=== PATIENT | female | born 1990 | race Caucasian/White ===

== ENCOUNTER 2017-12-08 10:34 | Inpatient (IN) | payer MEDICAID, OTHER ==
[~2017-12-08] VITALS: Ht 154.9 cm; Wt 62.3 kg
[2017-12-08 11:19] LABS: BASOPHILS % (AUTO) 0.9 % (0.0-2.0); HEMATOCRIT 44.5 % (36-46); HEMOGLOBIN 14.8 g/dL (12.0-16.0); LYMPHOCYTES # (AUTO) 1.9 K/uL (1.0-4.8); LYMPHOCYTES % (AUTO) 17.9 % (22.0-44.0); MEAN CORPUSCULAR HEMOGLOBIN 28.1 pg (26.0-34.0); MEAN CORPUSCULAR HGB CONC 33.3 G/dL (31.0-37.0); MEAN CORPUSCULAR VOLUME 84 fL (80-100); MONOCYTES # (AUTO) 1.2 K/uL (0.1-1.0); MONOCYTES % (AUTO) 11.2 % (2.0-9.0); NEUTROPHILS # (AUTO) 7.3 K/uL (1.8-7.7); PLATELET COUNT (AUTO) 212 K/uL (150-450); RED BLOOD CELL COUNT(AUTO) 5.27 MIL/uL (4.00-5.20); RED CELL DISTRIBUTION WIDTH 16.4 % (11.5-14.5)
[2017-12-08 11:26] LABS: AMPHET/METH SCREEN,URINE NEGATIVE (NEGATIVE); BARBITURATE SCREEN, URINE NEGATIVE (NEGATIVE); BENZODIAZEPINES SCREEN,URINE NEGATIVE (NEGATIVE); CANNABINOID SCREEN,URINE POSITIVE (NEGATIVE); COCAINE SCREEN,URINE NEGATIVE (NEGATIVE); METHADONE SCREEN, URINE NEGATIVE (NEGATIVE); OPIATE SCREEN,URINE NEGATIVE (NEGATIVE)
[2017-12-08 11:26] LABS: ANION GAP 12 mmol/L (8-16); CALCIUM, TOTAL 9.4 mg/dL (8.8-10.5); CARBON DIOXIDE 27 mmol/L (22-29); CHLORIDE 102 mmol/L (98-107); CREATININE 0.81 mg/dL (0.60-1.30); GLOMERULAR FILTR. RATE CALC > 60 mL/min (>60); GLUCOSE,RANDOM 92 mg/dL (70-110); POTASSIUM 4.3 mmol/L (3.5-5.1); SODIUM SERUM 141 mmol/L (136-145); UREA NITROGEN, BLOOD 12 mg/dL (7-18)
[2017-12-08 11:28] LABS: PHENCYCLIDINE SCREEN,URINE NEGATIVE (NEGATIVE)
[2017-12-08 11:32] LABS: ALANINE AMINOTRANSFERASE 21 U/L (12-78); ALBUMIN 4.7 g/dL (3.4-5.0); ALKALINE PHOSPHATASE 73 U/L (46-116); ASPARTATE AMINOTRANSFERASE 21 U/L (15-37); BILIRUBIN,TOTAL 0.7 mg/dL (0.1-1.0); TOTAL PROTEIN, SERUM 8.5 g/dL (6.4-8.2)
[2017-12-08] MEDS ORDERED: DiphenhydrAMINE HCL 50 MG/ML VIAL IM ONE (13:15)
[2017-12-08] MEDS ORDERED: HALOPERIDOL LACTATE 5 MG/ML VIAL IM ONE (13:15)
[2017-12-08] MEDS ORDERED: LORazepam 2 MG/ML VIAL IM ONE (13:15)
[2017-12-08] MEDS ORDERED: ZOLPIDEM TARTRATE 10 MG TABLET PO PRN (13:45)
[2017-12-08] MEDS ORDERED: HALOPERIDOL 5 MG TABLET PO PRN (13:45)
[2017-12-08 16:29] VITALS: BP 102/78
[2017-12-08] MEDS: ZIPRASIDONE HCL 40 MG CAPSULE PO SCH (16:55)
[2017-12-08] MEDS ORDERED: INFLUENZA VIRUS VACCINE QVS 2017-18 (3YR+)/PF 60 MCG/0.5 ML SYRINGE IM ONE (17:30)
[2017-12-09] MEDS: ZIPRASIDONE HCL 40 MG CAPSULE PO SCH ×2 (06:33→16:28)
[2017-12-09 06:46] VITALS: BP 102/60
[2017-12-09 08:11] LABS: BASOPHILS % (AUTO) 0.8 % (0.0-2.0); EOSINOPHILS % (AUTO) 4.7 % (1.0-6.0); HEMATOCRIT 40.2 % (36-46); HEMOGLOBIN 13.3 g/dL (12.0-16.0); LYMPHOCYTES # (AUTO) 2.6 K/uL (1.0-4.8); LYMPHOCYTES % (AUTO) 27.9 % (22.0-44.0); MEAN CORPUSCULAR VOLUME 85 fL (80-100); MONOCYTES # (AUTO) 1.1 K/uL (0.1-1.0); NEUTROPHILS # (AUTO) 5.1 K/uL (1.8-7.7); NEUTROPHILS % (AUTO) 54.6 % (40.0-70.0); PLATELET COUNT (AUTO) 173 K/uL (150-450); RED BLOOD CELL COUNT(AUTO) 4.73 MIL/uL (4.00-5.20); RED CELL DISTRIBUTION WIDTH 16.1 % (11.5-14.5)
[2017-12-09 08:35] VITALS: BP 109/62
[2017-12-09 08:35] LABS: HEMOGLOBIN A1C 5.4 % (4.5-6.2)
[2017-12-09 09:02] LABS: ALANINE AMINOTRANSFERASE 12 U/L (12-78); ALBUMIN 3.8 g/dL (3.4-5.0); ALKALINE PHOSPHATASE 59 U/L (46-116); ANION GAP 11 mmol/L (8-16); ASPARTATE AMINOTRANSFERASE 18 U/L (15-37); BILIRUBIN,TOTAL 0.6 mg/dL (0.1-1.0); CALCIUM, TOTAL 8.7 mg/dL (8.8-10.5); CARBON DIOXIDE 24 mmol/L (22-29); CHLORIDE 104 mmol/L (98-107); CHOLESTEROL 246 mg/dL (131-200); CREATININE 0.66 mg/dL (0.60-1.30); FREE T4 (FREE THYROXINE) 1.11 ng/dL (0.76-1.46); GLOMERULAR FILTR. RATE CALC > 60 mL/min (>60); GLUCOSE,RANDOM 75 mg/dL (70-110); HDL CHOLESTEROL 82 mg/dL (40-60); LDL CHOL (CALC.) 151 mg/dL (0-130); POTASSIUM 4.1 mmol/L (3.5-5.1); SODIUM SERUM 139 mmol/L (136-145); TRIGLYCERIDES 67 mg/dL (15-150); UREA NITROGEN, BLOOD 13 mg/dL (7-18)
[2017-12-09] MEDS: LORazepam 2 MG TABLET PO PRN (12:27)
[2017-12-09 16:00] VITALS: BP 107/68
[2017-12-09] MEDS: ACETAMINOPHEN 325 MG TABLET PO PRN (19:15)
[2017-12-10] VITALS: BP 100/62
[2017-12-10 05:45] VITALS: BP 101/65
[2017-12-10] MEDS: ACETAMINOPHEN 325 MG TABLET PO PRN (06:12)
[2017-12-10] MEDS: ZIPRASIDONE HCL 40 MG CAPSULE PO SCH ×2 (06:59→16:35)
[2017-12-10 08:09] VITALS: BP 108/61
[2017-12-10] MEDS: LORazepam 2 MG TABLET PO PRN ×3 (09:04→20:35)
[2017-12-10] MEDS: ATORVASTATIN CALCIUM 40 MG TABLET PO SCH (09:55)
[2017-12-10] MEDS: ONDANSETRON HCL 4 MG TABLET PO PRN (09:55)
[2017-12-10 16:00] VITALS: BP 114/69
[2017-12-11 05:45] VITALS: BP 100/61
[2017-12-11] MEDS: ZIPRASIDONE HCL 40 MG CAPSULE PO SCH (07:12)
[2017-12-11] MEDS: ATORVASTATIN CALCIUM 40 MG TABLET PO SCH (08:21)
[2017-12-11 08:35] VITALS: BP 110/87
[2017-12-11] MEDS: LORazepam 2 MG TABLET PO PRN ×2 (10:45→16:30)
[2017-12-11 16:06] VITALS: BP 109/67
[2017-12-11] MEDS: ZIPRASIDONE HCL 60 MG CAPSULE PO SCH (16:30)
[2017-12-11] MEDS: ONDANSETRON HCL 4 MG TABLET PO PRN (18:44)
[2017-12-12 06:16] VITALS: BP 110/68
[2017-12-12] MEDS: ZIPRASIDONE HCL 60 MG CAPSULE PO SCH (07:00)
[2017-12-12] MEDS: ATORVASTATIN CALCIUM 40 MG TABLET PO SCH (08:00)
[2017-12-12 08:29] VITALS: BP 121/77
[2017-12-12] MEDS ORDERED: ATOR40TA28 PO (09:46)
[2017-12-12] MEDS ORDERED: ZIPR60CA2 PO (09:46)
== END 2017-12-12 13:20 | disposition home or self-care (01) | DRG 751 ==
LOC: EMS 10:39 → B2S 15:14 → EMS 15:15
PROVIDERS: ADMIT Psychiatry & Neurology Psychiatry; ATTEND Psychiatry & Neurology Psychiatry
DX: F29 Unspecified psychosis not due to a substance or known physiological condition (principal); F32.9 Major depressive disorder, single episode, unspecified; E78.5 Hyperlipidemia, unspecified; F12.90 Cannabis use, unspecified, uncomplicated; F41.9 Anxiety disorder, unspecified; Z79.899 Other long term (current) drug therapy
CPT/HCPCS: 83036; 84439; 84443; 90471; 96372; 99285; G0480; J1200; J1630; J2060; Q0162

== ENCOUNTER 2017-12-12 19:04 | Inpatient (IN) | payer MEDICAID, OTHER ==
[~2017-12-12] VITALS: Ht 154.9 cm; Wt 64.2 kg
[~2017-12-12 19:04] MED LIST: ATOR40TA28 PO; ZIPR60CA2 PO
[2017-12-12 20:29] LABS: BASOPHILS % (AUTO) 0.7 % (0.0-2.0); HEMATOCRIT 38.7 % (36-46); HEMOGLOBIN 12.9 g/dL (12.0-16.0); LYMPHOCYTES # (AUTO) 2.2 K/uL (1.0-4.8); MEAN CORPUSCULAR HEMOGLOBIN 28.3 pg (26.0-34.0); MEAN CORPUSCULAR HGB CONC 33.4 G/dL (31.0-37.0); MEAN CORPUSCULAR VOLUME 85 fL (80-100); MONOCYTES # (AUTO) 1.4 K/uL (0.1-1.0); MONOCYTES % (AUTO) 8.8 % (2.0-9.0); NEUTROPHILS # (AUTO) 11.8 K/uL (1.8-7.7); NEUTROPHILS % (AUTO) 74.5 % (40.0-70.0); PLATELET COUNT (AUTO) 193 K/uL (150-450); RED BLOOD CELL COUNT(AUTO) 4.57 MIL/uL (4.00-5.20); RED CELL DISTRIBUTION WIDTH 16.1 % (11.5-14.5)
[2017-12-12 20:51] LABS: ALANINE AMINOTRANSFERASE 21 U/L (12-78); ALBUMIN 4.1 g/dL (3.4-5.0); ALKALINE PHOSPHATASE 68 U/L (46-116); ANION GAP 8 mmol/L (8-16); ASPARTATE AMINOTRANSFERASE 18 U/L (15-37); CARBON DIOXIDE 28 mmol/L (22-29); CHLORIDE 103 mmol/L (98-107); CREATININE 0.81 mg/dL (0.60-1.30); GLOMERULAR FILTR. RATE CALC > 60 mL/min (>60); GLUCOSE,RANDOM 96 mg/dL (70-110); POTASSIUM 4.4 mmol/L (3.5-5.1); SODIUM SERUM 139 mmol/L (136-145); UREA NITROGEN, BLOOD 20 mg/dL (7-18)
[2017-12-12 21:39] LABS: BILIRUBIN,TOTAL 0.4 mg/dL (0.1-1.0); CALCIUM, TOTAL 8.9 mg/dL (8.8-10.5); TOTAL PROTEIN, SERUM 7.4 g/dL (6.4-8.2)
[2017-12-12 22:02] LABS: AMPHET/METH SCREEN,URINE NEGATIVE (NEGATIVE); BARBITURATE SCREEN, URINE NEGATIVE (NEGATIVE); BENZODIAZEPINES SCREEN,URINE NEGATIVE (NEGATIVE); CANNABINOID SCREEN,URINE POSITIVE (NEGATIVE); COCAINE SCREEN,URINE NEGATIVE (NEGATIVE); METHADONE SCREEN, URINE NEGATIVE (NEGATIVE); OPIATE SCREEN,URINE NEGATIVE (NEGATIVE)
[2017-12-12 22:03] LABS: PHENCYCLIDINE SCREEN,URINE NEGATIVE (NEGATIVE)
[2017-12-12] MEDS ORDERED: LORazepam 2 MG/ML VIAL IM ONE (22:30)
[2017-12-12] MEDS ORDERED: HALOPERIDOL LACTATE 5 MG/ML VIAL IM ONE (22:30)
[2017-12-12] MEDS ORDERED: MAGNESIUM HYDROXIDE SUSPENSION 30 ML UDCUP PO PRN (23:00)
[2017-12-12] MEDS ORDERED: ZOLPIDEM TARTRATE 10 MG TABLET PO PRN (23:00)
[2017-12-12] MEDS ORDERED: ACETAMINOPHEN 325 MG TABLET PO PRN (23:00)
[2017-12-12 23:34] VITALS: BP 104/71
[2017-12-13 02:50] VITALS: BP 100/62
[2017-12-13] MEDS ORDERED: INFLUENZA VIRUS VACCINE QVS 2017-18 (3YR+)/PF 60 MCG/0.5 ML SYRINGE IM ONE (04:15)
[2017-12-13 08:09] VITALS: BP 100/67
[2017-12-13] MEDS: HALOPERIDOL 5 MG TABLET PO PRN (13:22)
[2017-12-13] MEDS: LORazepam 2 MG TABLET PO PRN ×2 (13:22→18:15)
[2017-12-13 16:20] VITALS: BP 110/65
[2017-12-13] MEDS: ZIPRASIDONE HCL 80 MG CAPSULE PO SCH (17:16)
[2017-12-14 04:00] VITALS: BP 102/61
[2017-12-14] MEDS: MAG HYDROX/AL HYDROX/SIMETH ES 30 ML SUSPENSION UDCUP PO PRN ×2 (05:45→19:53)
[2017-12-14] MEDS: ZIPRASIDONE HCL 80 MG CAPSULE PO SCH ×2 (06:40→17:46)
[2017-12-14 08:05] LABS: BASOPHILS % (AUTO) 0.7 % (0.0-2.0); EOSINOPHILS % (AUTO) 4.2 % (1.0-6.0); HEMATOCRIT 38.4 % (36-46); HEMOGLOBIN 12.8 g/dL (12.0-16.0); LYMPHOCYTES # (AUTO) 2.4 K/uL (1.0-4.8); LYMPHOCYTES % (AUTO) 27.3 % (22.0-44.0); MEAN CORPUSCULAR HEMOGLOBIN 28.3 pg (26.0-34.0); MEAN CORPUSCULAR HGB CONC 33.3 G/dL (31.0-37.0); MEAN CORPUSCULAR VOLUME 85 fL (80-100); MONOCYTES # (AUTO) 0.8 K/uL (0.1-1.0); MONOCYTES % (AUTO) 9.4 % (2.0-9.0); NEUTROPHILS # (AUTO) 5.2 K/uL (1.8-7.7); NEUTROPHILS % (AUTO) 58.4 % (40.0-70.0); PLATELET COUNT (AUTO) 175 K/uL (150-450); RED BLOOD CELL COUNT(AUTO) 4.53 MIL/uL (4.00-5.20); RED CELL DISTRIBUTION WIDTH 16.6 % (11.5-14.5)
[2017-12-14] MEDS: ATORVASTATIN CALCIUM 40 MG TABLET PO SCH (08:09)
[2017-12-14 08:18] VITALS: BP 97/60
[2017-12-14] MEDS: HALOPERIDOL 5 MG TABLET PO PRN ×2 (10:57→18:29)
[2017-12-14] MEDS: LORazepam 2 MG TABLET PO PRN ×2 (10:57→17:46)
[2017-12-14 16:00] VITALS: BP 114/64
[2017-12-15 05:39] VITALS: BP 102/65
[2017-12-15] MEDS: ZIPRASIDONE HCL 80 MG CAPSULE PO SCH ×2 (06:24→16:34)
[2017-12-15] MEDS: ATORVASTATIN CALCIUM 40 MG TABLET PO SCH (08:24)
[2017-12-15] MEDS: LORazepam 2 MG TABLET PO PRN ×2 (08:24→20:35)
[2017-12-15 08:29] LABS: BASOPHILS % (AUTO) 0.8 % (0.0-2.0); HEMATOCRIT 39.3 % (36-46); LYMPHOCYTES # (AUTO) 2.6 K/uL (1.0-4.8); LYMPHOCYTES % (AUTO) 26.3 % (22.0-44.0); MEAN CORPUSCULAR HEMOGLOBIN 28.1 pg (26.0-34.0); MEAN CORPUSCULAR HGB CONC 33.1 G/dL (31.0-37.0); MEAN CORPUSCULAR VOLUME 85 fL (80-100); MONOCYTES # (AUTO) 0.8 K/uL (0.1-1.0); MONOCYTES % (AUTO) 8.6 % (2.0-9.0); NEUTROPHILS # (AUTO) 5.9 K/uL (1.8-7.7); NEUTROPHILS % (AUTO) 60.3 % (40.0-70.0); PLATELET COUNT (AUTO) 205 K/uL (150-450); RED BLOOD CELL COUNT(AUTO) 4.62 MIL/uL (4.00-5.20); RED CELL DISTRIBUTION WIDTH 16.3 % (11.5-14.5)
[2017-12-15] MEDS: HALOPERIDOL 5 MG TABLET PO PRN (09:13)
[2017-12-15] MEDS ORDERED: ONDANSETRON HCL 4 MG TABLET PO PRN (10:15)
[2017-12-15] MEDS: DIVALPROEX SODIUM 500 MG ER TABLET PO SCH (16:34)
[2017-12-15] MEDS: MAG HYDROX/AL HYDROX/SIMETH ES 30 ML SUSPENSION UDCUP PO PRN (16:36)
[2017-12-15 16:43] VITALS: BP 101/71
[2017-12-16 06:15] VITALS: BP 110/67
[2017-12-16] MEDS: ZIPRASIDONE HCL 80 MG CAPSULE PO SCH ×2 (06:56→17:20)
[2017-12-16 08:29] VITALS: BP 104/52
[2017-12-16] MEDS: ATORVASTATIN CALCIUM 40 MG TABLET PO SCH (08:53)
[2017-12-16] MEDS: DIVALPROEX SODIUM 500 MG ER TABLET PO SCH ×2 (08:53→17:20)
[2017-12-16] MEDS: LORazepam 2 MG TABLET PO PRN ×2 (12:52→18:49)
[2017-12-16] MEDS: HALOPERIDOL 5 MG TABLET PO PRN ×2 (12:52→18:49)
[2017-12-16 16:23] VITALS: BP 105/61
[2017-12-17] MEDS: ZIPRASIDONE HCL 80 MG CAPSULE PO SCH ×2 (06:51→17:05)
[2017-12-17 07:34] VITALS: BP 112/68
[2017-12-17] MEDS: DIVALPROEX SODIUM 500 MG ER TABLET PO SCH ×2 (08:47→17:05)
[2017-12-17] MEDS: ATORVASTATIN CALCIUM 40 MG TABLET PO SCH (08:47)
[2017-12-17 09:42] VITALS: BP 100/60
[2017-12-17] MEDS: LORazepam 2 MG TABLET PO PRN (12:35)
[2017-12-17] MEDS: HALOPERIDOL 5 MG TABLET PO PRN (12:35)
[2017-12-17 16:13] VITALS: BP 106/67
[2017-12-18 02:24] VITALS: BP 118/77
[2017-12-18] MEDS: ZIPRASIDONE HCL 80 MG CAPSULE PO SCH (06:34)
[2017-12-18 08:11] LABS: BASOPHILS % (AUTO) 0.8 % (0.0-2.0); HEMATOCRIT 38.5 % (36-46); HEMOGLOBIN 13.2 g/dL (12.0-16.0); LYMPHOCYTES # (AUTO) 2.8 K/uL (1.0-4.8); MEAN CORPUSCULAR HEMOGLOBIN 29.1 pg (26.0-34.0); MEAN CORPUSCULAR HGB CONC 34.4 G/dL (31.0-37.0); MEAN CORPUSCULAR VOLUME 85 fL (80-100); MONOCYTES # (AUTO) 0.8 K/uL (0.1-1.0); MONOCYTES % (AUTO) 8.4 % (2.0-9.0); NEUTROPHILS # (AUTO) 5.7 K/uL (1.8-7.7); NEUTROPHILS % (AUTO) 57.8 % (40.0-70.0); PLATELET COUNT (AUTO) 164 K/uL (150-450); RED BLOOD CELL COUNT(AUTO) 4.55 MIL/uL (4.00-5.20); RED CELL DISTRIBUTION WIDTH 16.4 % (11.5-14.5)
[2017-12-18 08:21] LABS: ALANINE AMINOTRANSFERASE 18 U/L (12-78); ALBUMIN 3.3 g/dL (3.4-5.0); ALKALINE PHOSPHATASE 59 U/L (46-116); ANION GAP 9 mmol/L (8-16); ASPARTATE AMINOTRANSFERASE 16 U/L (15-37); BILIRUBIN,TOTAL 0.2 mg/dL (0.1-1.0); CALCIUM, TOTAL 8.5 mg/dL (8.8-10.5); CARBON DIOXIDE 27 mmol/L (22-29); CHLORIDE 105 mmol/L (98-107); CREATININE 0.57 mg/dL (0.60-1.30); GLOMERULAR FILTR. RATE CALC > 60 mL/min (>60); GLUCOSE,RANDOM 74 mg/dL (70-110); POTASSIUM 4.1 mmol/L (3.5-5.1); SODIUM SERUM 141 mmol/L (136-145); TOTAL PROTEIN, SERUM 6.5 g/dL (6.4-8.2); UREA NITROGEN, BLOOD 6 mg/dL (7-18); VALPROIC ACID 74 mcg/mL (50-100)
[2017-12-18] MEDS: LORazepam 2 MG TABLET PO PRN (09:35)
[2017-12-18] MEDS: ATORVASTATIN CALCIUM 40 MG TABLET PO SCH (09:35)
[2017-12-18] MEDS: DIVALPROEX SODIUM 500 MG ER TABLET PO SCH (09:35)
[2017-12-18] MEDS: HALOPERIDOL 5 MG TABLET PO PRN (09:35)
[2017-12-18 11:00] VITALS: BP 111/79
[2017-12-18] MEDS ORDERED: DIVA500T52 PO (15:22)
== END 2017-12-18 17:20 | disposition home or self-care (01) | DRG 753 ==
LOC: EMS 19:07 → AHU 22:57 → B3A 12-13 02:10
PROVIDERS: ADMIT Psychiatry & Neurology Psychiatry; ATTEND Psychiatry & Neurology Psychiatry
DX: F31.2 Bipolar disorder, current episode manic severe with psychotic features (principal); E78.5 Hyperlipidemia, unspecified; F12.90 Cannabis use, unspecified, uncomplicated; F15.90 Other stimulant use, unspecified, uncomplicated; F41.9 Anxiety disorder, unspecified; Z79.899 Other long term (current) drug therapy
CPT/HCPCS: G0480; J1630; J2060; Q0162

== ENCOUNTER 2017-12-18 22:39 | Emergency (ER) | payer MEDICAID, OTHER ==
[~2017-12-18] VITALS: Ht 154.9 cm; Wt 68.2 kg
[~2017-12-18 22:39] MED LIST changes: +DIVA500T52 PO
[2017-12-18 23:02] LABS: BASOPHILS % (AUTO) 0.7 % (0.0-2.0); EOSINOPHILS % (AUTO) 1.9 % (1.0-6.0); HEMATOCRIT 36.9 % (36-46); HEMOGLOBIN 12.3 g/dL (12.0-16.0); LYMPHOCYTES # (AUTO) 2.4 K/uL (1.0-4.8); MEAN CORPUSCULAR HEMOGLOBIN 28.2 pg (26.0-34.0); MEAN CORPUSCULAR HGB CONC 33.3 G/dL (31.0-37.0); MEAN CORPUSCULAR VOLUME 85 fL (80-100); MONOCYTES # (AUTO) 1.1 K/uL (0.1-1.0); MONOCYTES % (AUTO) 9.4 % (2.0-9.0); PLATELET COUNT (AUTO) 206 K/uL (150-450); RED BLOOD CELL COUNT(AUTO) 4.36 MIL/uL (4.00-5.20); RED CELL DISTRIBUTION WIDTH 16.3 % (11.5-14.5)
[2017-12-18 23:11] LABS: AMPHET/METH SCREEN,URINE NEGATIVE (NEGATIVE); BARBITURATE SCREEN, URINE NEGATIVE (NEGATIVE); BENZODIAZEPINES SCREEN,URINE NEGATIVE (NEGATIVE); CANNABINOID SCREEN,URINE POSITIVE (NEGATIVE); COCAINE SCREEN,URINE NEGATIVE (NEGATIVE); METHADONE SCREEN, URINE NEGATIVE (NEGATIVE); OPIATE SCREEN,URINE NEGATIVE (NEGATIVE)
[2017-12-18 23:14] LABS: PHENCYCLIDINE SCREEN,URINE NEGATIVE (NEGATIVE)
[2017-12-18 23:17] LABS: ANION GAP 11 mmol/L (8-16); CALCIUM, TOTAL 8.9 mg/dL (8.8-10.5); CARBON DIOXIDE 28 mmol/L (22-29); CHLORIDE 104 mmol/L (98-107); CREATININE 0.55 mg/dL (0.60-1.30); GLOMERULAR FILTR. RATE CALC > 60 mL/min (>60); GLUCOSE,RANDOM 92 mg/dL (70-110); POTASSIUM 3.8 mmol/L (3.5-5.1); SODIUM SERUM 143 mmol/L (136-145); UREA NITROGEN, BLOOD 10 mg/dL (7-18)
[2017-12-18 23:23] LABS: ALANINE AMINOTRANSFERASE 18 U/L (12-78); ALBUMIN 3.6 g/dL (3.4-5.0); ALKALINE PHOSPHATASE 78 U/L (46-116); ASPARTATE AMINOTRANSFERASE 14 U/L (15-37); BILIRUBIN,TOTAL 0.1 mg/dL (0.1-1.0); TOTAL PROTEIN, SERUM 6.9 g/dL (6.4-8.2); VALPROIC ACID 65 mcg/mL (50-100)
[2017-12-19 03:46] VITALS: BP 103/61
== END 2017-12-19 04:33 | disposition home or self-care (01) ==
LOC: EMS 22:40
DX: F25.9 Schizoaffective disorder, unspecified (principal); F41.9 Anxiety disorder, unspecified; F12.10 Cannabis abuse, uncomplicated; F15.10 Other stimulant abuse, uncomplicated; Z79.899 Other long term (current) drug therapy
CPT/HCPCS: 36415; 80053; 80164; 80307; 84703; 85025; 99284; G0480

== ENCOUNTER 2017-12-20 11:43 | Emergency (ER) | payer OTHER ==
[~2017-12-20] VITALS: Ht 154.9 cm; Wt 63.6 kg
[2017-12-20] MEDS ORDERED: SODIUM CHLORIDE 0.9% 1,000 ML IV ONE (12:15)
[2017-12-20 12:32] LABS: BASOPHILS % (AUTO) 0.7 % (0.0-2.0); EOSINOPHILS % (AUTO) 3.6 % (1.0-6.0); HEMATOCRIT 38.1 % (36-46); HEMOGLOBIN 12.8 g/dL (12.0-16.0); LYMPHOCYTES # (AUTO) 2.1 K/uL (1.0-4.8); LYMPHOCYTES % (AUTO) 21.7 % (22.0-44.0); MEAN CORPUSCULAR HEMOGLOBIN 28.6 pg (26.0-34.0); MEAN CORPUSCULAR HGB CONC 33.7 G/dL (31.0-37.0); MEAN CORPUSCULAR VOLUME 85 fL (80-100); MONOCYTES % (AUTO) 10.8 % (2.0-9.0); NEUTROPHILS # (AUTO) 6.1 K/uL (1.8-7.7); NEUTROPHILS % (AUTO) 63.2 % (40.0-70.0); PLATELET COUNT (AUTO) 219 K/uL (150-450); RED BLOOD CELL COUNT(AUTO) 4.49 MIL/uL (4.00-5.20); RED CELL DISTRIBUTION WIDTH 16.9 % (11.5-14.5)
[2017-12-20 12:50] LABS: ANION GAP 5 mmol/L (8-16); CALCIUM, TOTAL 8.6 mg/dL (8.8-10.5); CARBON DIOXIDE 30 mmol/L (22-29); CHLORIDE 106 mmol/L (98-107); CREATININE 0.52 mg/dL (0.60-1.30); GLOMERULAR FILTR. RATE CALC > 60 mL/min (>60); GLUCOSE,RANDOM 95 mg/dL (70-110); POTASSIUM 4.1 mmol/L (3.5-5.1); SODIUM SERUM 141 mmol/L (136-145); UREA NITROGEN, BLOOD 9 mg/dL (7-18)
[2017-12-20 12:57] LABS: ALANINE AMINOTRANSFERASE 21 U/L (12-78); ALBUMIN 3.8 g/dL (3.4-5.0); ALKALINE PHOSPHATASE 72 U/L (46-116); ASPARTATE AMINOTRANSFERASE 13 U/L (15-37); BILIRUBIN,TOTAL 0.1 mg/dL (0.1-1.0); TOTAL PROTEIN, SERUM 6.9 g/dL (6.4-8.2); VALPROIC ACID 101 mcg/mL (50-100)
[2017-12-20 12:58] LABS: ACETAMINOPHEN < 2 mcg/mL (10-30)
[2017-12-20 13:44] LABS: SALICYLATE < 2.8 mg/dL (2.8-20.0)
[2017-12-20 14:29] LABS: AMPHET/METH SCREEN,URINE NEGATIVE (NEGATIVE); BARBITURATE SCREEN, URINE NEGATIVE (NEGATIVE); BENZODIAZEPINES SCREEN,URINE NEGATIVE (NEGATIVE); CANNABINOID SCREEN,URINE POSITIVE (NEGATIVE); COCAINE SCREEN,URINE NEGATIVE (NEGATIVE); METHADONE SCREEN, URINE NEGATIVE (NEGATIVE); OPIATE SCREEN,URINE NEGATIVE (NEGATIVE)
[2017-12-20 14:34] LABS: PHENCYCLIDINE SCREEN,URINE NEGATIVE (NEGATIVE)
[2017-12-20 15:00] VITALS: BP 110/60
== END 2017-12-20 15:12 | disposition home or self-care (01) ==
LOC: EMS 11:44
DX: T40.7X1A Poisoning by cannabis (derivatives), accidental (unintentional), initial encounter (principal); F12.10 Cannabis abuse, uncomplicated; F15.90 Other stimulant use, unspecified, uncomplicated; Y92.098 Other place in other non-institutional residence as the place of occurrence of the external cause
CPT/HCPCS: 36415; 80053; 80164; 80307; 84703; 85025; 93005; 96360; 96361; 99285; G0480 ×2; G0481; J7030

== ENCOUNTER 2017-12-21 13:40 | Emergency (ER) | payer OTHER | END 2017-12-21 14:20 | disposition left against medical advice (07) | LOC: EMS 13:41 | DX: R53.1 Weakness (principal); Z53.21 Procedure and treatment not carried out due to patient leaving prior to being seen by health care provider ==

== ENCOUNTER 2017-12-22 23:12 | Emergency (ER) | payer OTHER ==
[~2017-12-22] VITALS: Ht 154.9 cm; Wt 63.6 kg
[2017-12-23] MEDS ORDERED: PB/HYOSCY/ATR/SCOP/LIDO/MAALOX 55 ML BOTTLE PO ONE
[2017-12-23 00:29] LABS: BASOPHILS % (AUTO) 0.6 % (0.0-2.0); EOSINOPHILS % (AUTO) 2.2 % (1.0-6.0); HEMATOCRIT 36.3 % (36-46); HEMOGLOBIN 12.2 g/dL (12.0-16.0); LYMPHOCYTES # (AUTO) 2.9 K/uL (1.0-4.8); LYMPHOCYTES % (AUTO) 23.8 % (22.0-44.0); MEAN CORPUSCULAR HEMOGLOBIN 28.5 pg (26.0-34.0); MEAN CORPUSCULAR HGB CONC 33.6 G/dL (31.0-37.0); MEAN CORPUSCULAR VOLUME 85 fL (80-100); MONOCYTES # (AUTO) 1.1 K/uL (0.1-1.0); NEUTROPHILS # (AUTO) 7.9 K/uL (1.8-7.7); NEUTROPHILS % (AUTO) 64.4 % (40.0-70.0); PLATELET COUNT (AUTO) 219 K/uL (150-450); RED BLOOD CELL COUNT(AUTO) 4.28 MIL/uL (4.00-5.20); RED CELL DISTRIBUTION WIDTH 16.9 % (11.5-14.5)
[2017-12-23 00:35] LABS: APPEARANCE,URINE CLEAR (CLEAR); BILIRUBIN,URINE NEGATIVE (NEGATIVE); GLUCOSE, URINE (UA) NEGATIVE (NEGATIVE); KETONES,URINE NEGATIVE (NEGATIVE); LEUKOCYTE ESTERASE ,URINE NEGATIVE (NEGATIVE); NITRATE,URINE NEGATIVE (NEGATIVE); OCCULT BLOOD,URINE NEGATIVE (NEGATIVE); PH,URINE 6.5 (5.0-8.0); PROTEIN,URINE NEGATIVE (NEGATIVE); UROBILINOGEN,URINE 0.2 mg/dL (<=1.0)
[2017-12-23 00:40] LABS: ANION GAP 10 mmol/L (8-16); CALCIUM, TOTAL 8.5 mg/dL (8.8-10.5); CARBON DIOXIDE 27 mmol/L (22-29); CHLORIDE 105 mmol/L (98-107); GLOMERULAR FILTR. RATE CALC > 60 mL/min (>60); GLUCOSE,RANDOM 91 mg/dL (70-110); POTASSIUM 3.7 mmol/L (3.5-5.1); SODIUM SERUM 142 mmol/L (136-145); UREA NITROGEN, BLOOD 16 mg/dL (7-18)
[2017-12-23 00:42] LABS: AMPHET/METH SCREEN,URINE NEGATIVE (NEGATIVE); BARBITURATE SCREEN, URINE NEGATIVE (NEGATIVE); BENZODIAZEPINES SCREEN,URINE NEGATIVE (NEGATIVE); CANNABINOID SCREEN,URINE POSITIVE (NEGATIVE); COCAINE SCREEN,URINE NEGATIVE (NEGATIVE); METHADONE SCREEN, URINE NEGATIVE (NEGATIVE); OPIATE SCREEN,URINE NEGATIVE (NEGATIVE)
[2017-12-23 00:43] LABS: PHENCYCLIDINE SCREEN,URINE NEGATIVE (NEGATIVE)
[2017-12-23 00:46] LABS: ALANINE AMINOTRANSFERASE 21 U/L (12-78); ALKALINE PHOSPHATASE 64 U/L (46-116); ASPARTATE AMINOTRANSFERASE 24 U/L (15-37); BILIRUBIN,TOTAL 0.2 mg/dL (0.1-1.0); TOTAL PROTEIN, SERUM 6.9 g/dL (6.4-8.2); VALPROIC ACID 110 mcg/mL (50-100)
[2017-12-23 00:51] LABS: BACTERIA,URINE Few /HPF (None Seen); MUCUS,URINE Few LPF (None Seen); RBC,URINE 0-2 /HPF (0-2); SQUAMOUS EPITHELIAL CELL,UR Few /LPF (None Seen); WBC,URINE 0-2 /HPF (0-5)
[2017-12-23 00:53] LABS: ALBUMIN 3.6 g/dL (3.4-5.0); LIPASE 144 U/L (73-393)
[2017-12-23 01:29] VITALS: BP 114/76
== END 2017-12-23 01:32 | disposition home or self-care (01) ==
LOC: EMS 23:12
DX: K29.70 Gastritis, unspecified, without bleeding (principal); F20.9 Schizophrenia, unspecified; F12.90 Cannabis use, unspecified, uncomplicated; F15.90 Other stimulant use, unspecified, uncomplicated
CPT/HCPCS: 36415; 80053; 80164; 80307; 81001; 83690; 84703; 85025; 99285; G0480; Z7610

== ENCOUNTER 2017-12-23 11:09 | Emergency (ER) | payer OTHER ==
[~2017-12-23] VITALS: Ht 154.9 cm; Wt 63.6 kg
[2017-12-23] MEDS ORDERED: NALOXONE HCL 1 MG/ML 2 ML SYG IVP ONE (12:45)
[2017-12-23 12:57] LABS: BASOPHILS % (AUTO) 0.7 % (0.0-2.0); EOSINOPHILS % (AUTO) 2.7 % (1.0-6.0); HEMATOCRIT 36.5 % (36-46); HEMOGLOBIN 12.2 g/dL (12.0-16.0); LYMPHOCYTES % (AUTO) 25.1 % (22.0-44.0); MEAN CORPUSCULAR HEMOGLOBIN 28.3 pg (26.0-34.0); MEAN CORPUSCULAR HGB CONC 33.4 G/dL (31.0-37.0); MEAN CORPUSCULAR VOLUME 85 fL (80-100); MONOCYTES # (AUTO) 0.7 K/uL (0.1-1.0); MONOCYTES % (AUTO) 9.2 % (2.0-9.0); NEUTROPHILS # (AUTO) 5.1 K/uL (1.8-7.7); NEUTROPHILS % (AUTO) 62.3 % (40.0-70.0); PLATELET COUNT (AUTO) 206 K/uL (150-450); RED BLOOD CELL COUNT(AUTO) 4.29 MIL/uL (4.00-5.20); RED CELL DISTRIBUTION WIDTH 17.2 % (11.5-14.5)
[2017-12-23 13:26] LABS: ANION GAP 8 mmol/L (8-16); CALCIUM, TOTAL 8.2 mg/dL (8.8-10.5); CARBON DIOXIDE 28 mmol/L (22-29); CHLORIDE 108 mmol/L (98-107); CREATININE 0.63 mg/dL (0.60-1.30); GLOMERULAR FILTR. RATE CALC > 60 mL/min (>60); GLUCOSE,RANDOM 87 mg/dL (70-110); POTASSIUM 4.1 mmol/L (3.5-5.1); SODIUM SERUM 144 mmol/L (136-145); UREA NITROGEN, BLOOD 11 mg/dL (7-18)
[2017-12-23 13:29] LABS: AMPHET/METH SCREEN,URINE NEGATIVE (NEGATIVE); BARBITURATE SCREEN, URINE POSITIVE (NEGATIVE); BENZODIAZEPINES SCREEN,URINE NEGATIVE (NEGATIVE); CANNABINOID SCREEN,URINE POSITIVE (NEGATIVE); COCAINE SCREEN,URINE NEGATIVE (NEGATIVE); METHADONE SCREEN, URINE NEGATIVE (NEGATIVE); OPIATE SCREEN,URINE NEGATIVE (NEGATIVE)
[2017-12-23 13:30] LABS: ALANINE AMINOTRANSFERASE 22 U/L (12-78); ALBUMIN 3.4 g/dL (3.4-5.0); ALKALINE PHOSPHATASE 57 U/L (46-116); ASPARTATE AMINOTRANSFERASE 25 U/L (15-37); BILIRUBIN,TOTAL 0.2 mg/dL (0.1-1.0); TOTAL PROTEIN, SERUM 6.4 g/dL (6.4-8.2)
[2017-12-23 13:30] LABS: PHENCYCLIDINE SCREEN,URINE NEGATIVE (NEGATIVE)
[2017-12-23] MEDS ORDERED: ONDANSETRON HCL 4 MG/2 ML VIAL IVP ONE (13:30)
[2017-12-23 13:34] VITALS: BP 107/62
== END 2017-12-23 13:41 | disposition home or self-care (01) ==
LOC: EMS 11:11
DX: R51 Headache (principal); R11.0 Nausea; R53.83 Other fatigue; H53.149 Visual discomfort, unspecified; F12.90 Cannabis use, unspecified, uncomplicated; F15.90 Other stimulant use, unspecified, uncomplicated
CPT/HCPCS: 36415; 80053; 80307; 81025; 85025; 96374; 96375; 99284; J2310; J2405

== ENCOUNTER 2017-12-31 14:50 | Emergency (ER) | payer MEDICAID, OTHER ==
[~2017-12-31] VITALS: Ht 154.9 cm; Wt 63.6 kg
[~2017-12-31 14:50] MED LIST changes: +DIVA250T25 PO; +LAMO25 PO; +ZIPR40CA2 PO
[2017-12-31 15:00] VITALS: BP 136/76
[2017-12-31] MEDS ORDERED: SODIUM CHLORIDE 0.9% 1,000 ML IV ONE (15:15)
[2017-12-31] MEDS ORDERED: KETOROLAC TROMETHAMINE 30 MG/ML VIAL IVP ONE (15:15)
[2017-12-31] MEDS ORDERED: ONDANSETRON HCL 4 MG/2 ML VIAL IVP ONE (15:15)
[2017-12-31 15:21] LABS: APPEARANCE,URINE CLOUDY (CLEAR); BILIRUBIN,URINE NEGATIVE (NEGATIVE); GLUCOSE, URINE (UA) NEGATIVE (NEGATIVE); KETONES,URINE NEGATIVE (NEGATIVE); LEUKOCYTE ESTERASE ,URINE NEGATIVE (NEGATIVE); NITRATE,URINE NEGATIVE (NEGATIVE); OCCULT BLOOD,URINE NEGATIVE (NEGATIVE); PROTEIN,URINE NEGATIVE (NEGATIVE); UROBILINOGEN,URINE 0.2 mg/dL (<=1.0)
[2017-12-31 15:31] LABS: BASOPHILS % (AUTO) 0.5 % (0.0-2.0); EOSINOPHILS % (AUTO) 1.7 % (1.0-6.0); HEMATOCRIT 38.6 % (36-46); HEMOGLOBIN 12.9 g/dL (12.0-16.0); LYMPHOCYTES # (AUTO) 1.6 K/uL (1.0-4.8); LYMPHOCYTES % (AUTO) 16.7 % (22.0-44.0); MEAN CORPUSCULAR HEMOGLOBIN 28.5 pg (26.0-34.0); MEAN CORPUSCULAR HGB CONC 33.3 G/dL (31.0-37.0); MEAN CORPUSCULAR VOLUME 86 fL (80-100); MONOCYTES # (AUTO) 1.3 K/uL (0.1-1.0); MONOCYTES % (AUTO) 13.6 % (2.0-9.0); NEUTROPHILS # (AUTO) 6.4 K/uL (1.8-7.7); NEUTROPHILS % (AUTO) 67.5 % (40.0-70.0); PLATELET COUNT (AUTO) 196 K/uL (150-450); RED BLOOD CELL COUNT(AUTO) 4.52 MIL/uL (4.00-5.20); RED CELL DISTRIBUTION WIDTH 17.9 % (11.5-14.5)
[2017-12-31 15:43] LABS: ANION GAP 10 mmol/L (8-16); CALCIUM, TOTAL 8.4 mg/dL (8.8-10.5); CARBON DIOXIDE 28 mmol/L (22-29); CHLORIDE 106 mmol/L (98-107); CREATININE 0.75 mg/dL (0.60-1.30); GLOMERULAR FILTR. RATE CALC > 60 mL/min (>60); GLUCOSE,RANDOM 93 mg/dL (70-110); SODIUM SERUM 144 mmol/L (136-145); UREA NITROGEN, BLOOD 10 mg/dL (7-18)
[2017-12-31 15:49] LABS: ALANINE AMINOTRANSFERASE 21 U/L (12-78); ALBUMIN 3.7 g/dL (3.4-5.0); ALKALINE PHOSPHATASE 55 U/L (46-116); ASPARTATE AMINOTRANSFERASE 19 U/L (15-37); BILIRUBIN,TOTAL 0.2 mg/dL (0.1-1.0); LIPASE 117 U/L (73-393); TOTAL PROTEIN, SERUM 6.9 g/dL (6.4-8.2)
[2017-12-31 16:00] LABS: VALPROIC ACID 59 mcg/mL (50-100)
== END 2017-12-31 16:29 | disposition home or self-care (01) ==
LOC: EMS 14:51
DX: R10.30 Lower abdominal pain, unspecified (principal); F31.9 Bipolar disorder, unspecified; K59.00 Constipation, unspecified; F20.9 Schizophrenia, unspecified; F11.90 Opioid use, unspecified, uncomplicated; F12.90 Cannabis use, unspecified, uncomplicated; F15.90 Other stimulant use, unspecified, uncomplicated
CPT/HCPCS: 36415; 80053; 80164; 81003; 83690; 84703; 85025; 96361; 96374; 96375; 99284; J1885; J2405; J7030

== ENCOUNTER 2017-12-31 19:30 | Emergency (ER) | payer OTHER ==
[~2017-12-31] VITALS: Ht 154.9 cm; Wt 63.6 kg
[2017-12-31 20:04] LABS: AMPHET/METH SCREEN,URINE NEGATIVE (NEGATIVE); BARBITURATE SCREEN, URINE NEGATIVE (NEGATIVE); BENZODIAZEPINES SCREEN,URINE NEGATIVE (NEGATIVE); CANNABINOID SCREEN,URINE POSITIVE (NEGATIVE); COCAINE SCREEN,URINE NEGATIVE (NEGATIVE); METHADONE SCREEN, URINE NEGATIVE (NEGATIVE); OPIATE SCREEN,URINE NEGATIVE (NEGATIVE); PHENCYCLIDINE SCREEN,URINE NEGATIVE (NEGATIVE)
[2017-12-31 23:23] VITALS: BP 118/70
== END 2017-12-31 23:54 | disposition home or self-care (01) ==
LOC: EMS 19:31
DX: F20.9 Schizophrenia, unspecified (principal); R10.9 Unspecified abdominal pain; F12.90 Cannabis use, unspecified, uncomplicated; F15.90 Other stimulant use, unspecified, uncomplicated; F11.90 Opioid use, unspecified, uncomplicated
CPT/HCPCS: 99284

== ENCOUNTER 2018-01-01 05:38 | Emergency (ER) | payer OTHER ==
[~2018-01-01] VITALS: Ht 154.9 cm; Wt 63.2 kg
[2018-01-01 08:09] LABS: BASOPHILS % (AUTO) 0.6 % (0.0-2.0); EOSINOPHILS % (AUTO) 2.3 % (1.0-6.0); HEMATOCRIT 38.2 % (36-46); HEMOGLOBIN 12.9 g/dL (12.0-16.0); LYMPHOCYTES # (AUTO) 1.9 K/uL (1.0-4.8); LYMPHOCYTES % (AUTO) 18.6 % (22.0-44.0); MEAN CORPUSCULAR HEMOGLOBIN 28.7 pg (26.0-34.0); MEAN CORPUSCULAR HGB CONC 33.8 G/dL (31.0-37.0); MEAN CORPUSCULAR VOLUME 85 fL (80-100); MONOCYTES # (AUTO) 1.2 K/uL (0.1-1.0); MONOCYTES % (AUTO) 11.4 % (2.0-9.0); NEUTROPHILS # (AUTO) 6.9 K/uL (1.8-7.7); NEUTROPHILS % (AUTO) 67.1 % (40.0-70.0); PLATELET COUNT (AUTO) 178 K/uL (150-450)
[2018-01-01 08:21] LABS: AMPHET/METH SCREEN,URINE NEGATIVE (NEGATIVE); BARBITURATE SCREEN, URINE NEGATIVE (NEGATIVE); BENZODIAZEPINES SCREEN,URINE NEGATIVE (NEGATIVE); CANNABINOID SCREEN,URINE POSITIVE (NEGATIVE); COCAINE SCREEN,URINE NEGATIVE (NEGATIVE); METHADONE SCREEN, URINE NEGATIVE (NEGATIVE); OPIATE SCREEN,URINE NEGATIVE (NEGATIVE)
[2018-01-01 08:22] LABS: PHENCYCLIDINE SCREEN,URINE NEGATIVE (NEGATIVE)
[2018-01-01 08:35] LABS: ANION GAP 7 mmol/L (8-16); CALCIUM, TOTAL 8.5 mg/dL (8.8-10.5); CARBON DIOXIDE 28 mmol/L (22-29); CHLORIDE 107 mmol/L (98-107); CREATININE 0.57 mg/dL (0.60-1.30); GLOMERULAR FILTR. RATE CALC > 60 mL/min (>60); GLUCOSE,RANDOM 82 mg/dL (70-110); POTASSIUM 3.6 mmol/L (3.5-5.1); SODIUM SERUM 142 mmol/L (136-145); UREA NITROGEN, BLOOD 10 mg/dL (7-18)
[2018-01-01 08:41] LABS: ALANINE AMINOTRANSFERASE 19 U/L (12-78); ALBUMIN 3.6 g/dL (3.4-5.0); ALKALINE PHOSPHATASE 55 U/L (46-116); ASPARTATE AMINOTRANSFERASE 18 U/L (15-37); BILIRUBIN,TOTAL 0.2 mg/dL (0.1-1.0); TOTAL PROTEIN, SERUM 6.8 g/dL (6.4-8.2)
[2018-01-01 09:11] VITALS: BP 137/71
== END 2018-01-01 09:12 | disposition home or self-care (01) ==
LOC: EMS 05:40
DX: F41.9 Anxiety disorder, unspecified (principal); F20.9 Schizophrenia, unspecified; F12.90 Cannabis use, unspecified, uncomplicated; F11.90 Opioid use, unspecified, uncomplicated; F15.90 Other stimulant use, unspecified, uncomplicated
CPT/HCPCS: 36415; 80053; 80307; 85025; 99284; G0480

== ENCOUNTER 2018-01-04 13:30 | Inpatient (IN) | payer MEDICAID, OTHER ==
[~2018-01-04] VITALS: Ht 160 cm; Wt 64.4 kg
[2018-01-04 13:30] VITALS: BP 112/77
[~2018-01-04 13:30] MED LIST changes: -ATOR40TA28 PO; -DIVA500T52 PO; -ZIPR60CA2 PO
[2018-01-04] MEDS: HALOPERIDOL 5 MG TABLET PO PRN (14:56)
[2018-01-04] MEDS: LORazepam 2 MG TABLET PO PRN (14:56)
[2018-01-04 15:08] VITALS: BP 113/72
[2018-01-04 16:12] VITALS: BP 109/60
[2018-01-04] MEDS: LamoTRIgine 25 MG TABLET PO SCH (16:29)
[2018-01-04] MEDS: ZIPRASIDONE HCL 40 MG CAPSULE PO SCH (16:29)
[2018-01-04] MEDS: DIVALPROEX SODIUM 250 MG DR TABLET PO SCH (16:29)
[2018-01-05 05:26] VITALS: BP 111/67
[2018-01-05] MEDS: LORazepam 2 MG TABLET PO PRN ×3 (06:07→17:08)
[2018-01-05] MEDS: ZIPRASIDONE HCL 40 MG CAPSULE PO SCH ×2 (06:07→18:21)
[2018-01-05] MEDS: HALOPERIDOL 5 MG TABLET PO PRN ×3 (06:07→17:08)
[2018-01-05 08:44] VITALS: BP 118/68
[2018-01-05 08:48] LABS: BASOPHILS % (AUTO) 0.8 % (0.0-2.0); EOSINOPHILS % (AUTO) 3.8 % (1.0-6.0); HEMATOCRIT 39.3 % (36-46); HEMOGLOBIN 13.1 g/dL (12.0-16.0); LYMPHOCYTES % (AUTO) 18.2 % (22.0-44.0); MEAN CORPUSCULAR HEMOGLOBIN 28.8 pg (26.0-34.0); MEAN CORPUSCULAR HGB CONC 33.3 G/dL (31.0-37.0); MEAN CORPUSCULAR VOLUME 86 fL (80-100); MONOCYTES # (AUTO) 1.2 K/uL (0.1-1.0); MONOCYTES % (AUTO) 11.2 % (2.0-9.0); NEUTROPHILS # (AUTO) 7.3 K/uL (1.8-7.7); PLATELET COUNT (AUTO) 184 K/uL (150-450); RED BLOOD CELL COUNT(AUTO) 4.55 MIL/uL (4.00-5.20); RED CELL DISTRIBUTION WIDTH 18.6 % (11.5-14.5)
[2018-01-05 09:11] LABS: HEMOGLOBIN A1C 5.5 % (4.5-6.2)
[2018-01-05 09:15] LABS: ALANINE AMINOTRANSFERASE 18 U/L (12-78); ALBUMIN 3.8 g/dL (3.4-5.0); ALKALINE PHOSPHATASE 62 U/L (46-116); ANION GAP 6 mmol/L (8-16); ASPARTATE AMINOTRANSFERASE 14 U/L (15-37); BILIRUBIN,TOTAL 0.3 mg/dL (0.1-1.0); CALCIUM, TOTAL 8.7 mg/dL (8.8-10.5); CARBON DIOXIDE 30 mmol/L (22-29); CHLORIDE 105 mmol/L (98-107); CHOL/HDL RATIO 2.4 (3.9-5.7); CHOLESTEROL 163 mg/dL (131-200); CREATININE 0.83 mg/dL (0.60-1.30); FREE T4 (FREE THYROXINE) 1.08 ng/dL (0.76-1.46); GLOMERULAR FILTR. RATE CALC > 60 mL/min (>60); GLUCOSE,RANDOM 98 mg/dL (70-110); HCG,QUANTITATIVE < 1 mIU/mL (0-6); HDL CHOLESTEROL 69 mg/dL (40-60); LDL CHOL (CALC.) 82 mg/dL (0-130); POTASSIUM 4.1 mmol/L (3.5-5.1); SODIUM SERUM 141 mmol/L (136-145); TOTAL PROTEIN, SERUM 7.2 g/dL (6.4-8.2); TRIGLYCERIDES 59 mg/dL (15-150); UREA NITROGEN, BLOOD 18 mg/dL (7-18); VALPROIC ACID 26 mcg/mL (50-100)
[2018-01-05] MEDS: DIVALPROEX SODIUM 250 MG DR TABLET PO SCH ×2 (09:38→18:21)
[2018-01-05] MEDS: LamoTRIgine 25 MG TABLET PO SCH ×2 (09:38→18:21)
[2018-01-05 16:08] VITALS: BP 101/63
[2018-01-06 00:56] VITALS: BP 113/71
[2018-01-06] MEDS: HALOPERIDOL 5 MG TABLET PO PRN ×2 (06:39→16:10)
[2018-01-06] MEDS: LORazepam 2 MG TABLET PO PRN ×2 (06:39→16:10)
[2018-01-06] MEDS: ZIPRASIDONE HCL 60 MG CAPSULE PO SCH ×2 (06:54→17:23)
[2018-01-06] MEDS: DIVALPROEX SODIUM 250 MG DR TABLET PO SCH ×2 (08:49→17:23)
[2018-01-06] MEDS: LamoTRIgine 25 MG TABLET PO SCH ×2 (08:50→17:23)
[2018-01-06 09:06] VITALS: BP 110/70
[2018-01-06 16:33] VITALS: BP 108/67
[2018-01-06] MEDS: ZOLPIDEM TARTRATE 10 MG TABLET PO PRN (21:50)
[2018-01-07 01:19] VITALS: BP 113/68
[2018-01-07] MEDS: ZIPRASIDONE HCL 60 MG CAPSULE PO SCH ×2 (06:43→16:53)
[2018-01-07 08:58] VITALS: BP 101/66
[2018-01-07] MEDS: LORazepam 2 MG TABLET PO PRN ×2 (09:04→14:52)
[2018-01-07] MEDS: HALOPERIDOL 5 MG TABLET PO PRN ×2 (09:04→16:53)
[2018-01-07] MEDS: DIVALPROEX SODIUM 250 MG DR TABLET PO SCH ×2 (09:04→16:53)
[2018-01-07] MEDS: LamoTRIgine 25 MG TABLET PO SCH ×2 (09:04→16:53)
[2018-01-07] MEDS: CAPSAICIN 0.025% 60 GM CREAM TP SCH (14:30)
[2018-01-07 16:27] VITALS: BP 104/63
[2018-01-07] MEDS: CLOTRIMAZOLE 1% 45 GM VAGINAL CREAM VG SCH (20:24)
[2018-01-07] MEDS: ZOLPIDEM TARTRATE 10 MG TABLET PO PRN (21:21)
[2018-01-08] MEDS: ZIPRASIDONE HCL 60 MG CAPSULE PO SCH ×2 (06:27→17:18)
[2018-01-08 06:50] VITALS: BP 100/59
[2018-01-08] MEDS: PANTOPRAZOLE SODIUM 40 MG DR TABLET PO SCH (08:36)
[2018-01-08] MEDS: LamoTRIgine 25 MG TABLET PO SCH (08:36)
[2018-01-08] MEDS: DIVALPROEX SODIUM 250 MG DR TABLET PO SCH ×2 (08:36→17:18)
[2018-01-08] MEDS: CAPSAICIN 0.025% 60 GM CREAM TP SCH (08:37)
[2018-01-08 10:00] VITALS: BP 112/61
[2018-01-08] MEDS: LORazepam 2 MG TABLET PO PRN ×2 (10:13→17:18)
[2018-01-08] MEDS: HALOPERIDOL 5 MG TABLET PO PRN ×2 (11:48→17:19)
[2018-01-08 16:28] VITALS: BP 105/63
[2018-01-08] MEDS: LamoTRIgine 100 MG TABLET PO SCH (17:19)
[2018-01-08] MEDS: BENZTROPINE MESYLATE 2 MG TABLET PO SCH (17:19)
[2018-01-08] MEDS: CLOTRIMAZOLE 1% 45 GM VAGINAL CREAM VG SCH (21:17)
[2018-01-09] MEDS: ZIPRASIDONE HCL 60 MG CAPSULE PO SCH (06:40)
[2018-01-09 07:07] VITALS: BP 110/62
[2018-01-09 08:57] VITALS: BP 106/63
[2018-01-09] MEDS: LORazepam 2 MG TABLET PO PRN (09:00)
[2018-01-09] MEDS: HALOPERIDOL 5 MG TABLET PO PRN ×2 (09:00→17:17)
[2018-01-09] MEDS: DIVALPROEX SODIUM 250 MG DR TABLET PO SCH ×2 (09:00→16:16)
[2018-01-09] MEDS: LamoTRIgine 100 MG TABLET PO SCH ×2 (09:00→16:16)
[2018-01-09] MEDS: BENZTROPINE MESYLATE 2 MG TABLET PO SCH ×2 (09:00→16:15)
[2018-01-09] MEDS: PANTOPRAZOLE SODIUM 40 MG DR TABLET PO SCH (09:00)
[2018-01-09] MEDS: CAPSAICIN 0.025% 60 GM CREAM TP SCH (09:05)
[2018-01-09] MEDS: IBUPROFEN 600 MG TABLET PO PRN (12:18)
[2018-01-09] MEDS: ZIPRASIDONE HCL 80 MG CAPSULE PO SCH (16:21)
[2018-01-09 16:41] VITALS: BP 104/63
[2018-01-09] MEDS: CLOTRIMAZOLE 1% 45 GM VAGINAL CREAM VG SCH (21:06)
[2018-01-09] MEDS: ZOLPIDEM TARTRATE 10 MG TABLET PO PRN (21:07)
[2018-01-09] MEDS: ACETAMINOPHEN 325 MG TABLET PO PRN (21:07)
[2018-01-09] MEDS: MAG HYDROX/AL HYDROX/SIMETH ES 30 ML SUSPENSION UDCUP PO PRN (22:43)
[2018-01-10 00:05] VITALS: BP 100/62
[2018-01-10] MEDS: IBUPROFEN 600 MG TABLET PO PRN ×3 (00:09→23:39)
[2018-01-10 05:05] VITALS: BP 106/65
[2018-01-10] MEDS: LORazepam 2 MG TABLET PO PRN ×3 (05:07→16:58)
[2018-01-10] MEDS: ACETAMINOPHEN 325 MG TABLET PO PRN (05:07)
[2018-01-10] MEDS: HALOPERIDOL 5 MG TABLET PO PRN ×3 (06:13→18:26)
[2018-01-10] MEDS: MAG HYDROX/AL HYDROX/SIMETH ES 30 ML SUSPENSION UDCUP PO PRN ×2 (06:14→18:26)
[2018-01-10] MEDS: ZIPRASIDONE HCL 80 MG CAPSULE PO SCH ×2 (06:35→16:58)
[2018-01-10 08:29] VITALS: BP 106/61
[2018-01-10] MEDS: PANTOPRAZOLE SODIUM 40 MG DR TABLET PO SCH (09:33)
[2018-01-10] MEDS: DIVALPROEX SODIUM 250 MG DR TABLET PO SCH ×2 (09:33→16:58)
[2018-01-10] MEDS: LamoTRIgine 100 MG TABLET PO SCH ×2 (09:34→16:58)
[2018-01-10] MEDS: BENZTROPINE MESYLATE 2 MG TABLET PO SCH ×2 (09:35→16:58)
[2018-01-10] MEDS: CAPSAICIN 0.025% 60 GM CREAM TP SCH (09:35)
[2018-01-10 16:30] VITALS: BP 118/67
[2018-01-10] MEDS: CLOTRIMAZOLE 1% 45 GM VAGINAL CREAM VG SCH (20:13)
[2018-01-10] MEDS: ZOLPIDEM TARTRATE 10 MG TABLET PO PRN (20:53)
[2018-01-11 00:39] VITALS: BP 124/68
[2018-01-11] MEDS: LORazepam 2 MG TABLET PO PRN ×2 (01:58→16:48)
[2018-01-11] MEDS: HALOPERIDOL 5 MG TABLET PO PRN ×2 (01:58→16:48)
[2018-01-11] MEDS: ZIPRASIDONE HCL 80 MG CAPSULE PO SCH ×2 (06:27→17:35)
[2018-01-11] MEDS: BENZTROPINE MESYLATE 2 MG TABLET PO SCH ×2 (08:13→17:35)
[2018-01-11] MEDS: PANTOPRAZOLE SODIUM 40 MG DR TABLET PO SCH (08:13)
[2018-01-11] MEDS: LamoTRIgine 100 MG TABLET PO SCH ×2 (08:13→17:35)
[2018-01-11] MEDS: DIVALPROEX SODIUM 250 MG DR TABLET PO SCH ×2 (08:13→17:35)
[2018-01-11 08:29] VITALS: BP 105/68
[2018-01-11 09:24] LABS: APPEARANCE,URINE CLOUDY (CLEAR); BILIRUBIN,URINE NEGATIVE (NEGATIVE); GLUCOSE, URINE (UA) NEGATIVE (NEGATIVE); KETONES,URINE NEGATIVE (NEGATIVE); LEUKOCYTE ESTERASE ,URINE NEGATIVE (NEGATIVE); NITRATE,URINE NEGATIVE (NEGATIVE); OCCULT BLOOD,URINE NEGATIVE (NEGATIVE); PROTEIN,URINE NEGATIVE (NEGATIVE); UROBILINOGEN,URINE 0.2 mg/dL (<=1.0)
[2018-01-11] MEDS: CAPSAICIN 0.025% 60 GM CREAM TP SCH (09:48)
[2018-01-11 12:15] LABS: AMPHET/METH SCREEN,URINE NEGATIVE (NEGATIVE); BARBITURATE SCREEN, URINE NEGATIVE (NEGATIVE); BENZODIAZEPINES SCREEN,URINE NEGATIVE (NEGATIVE); CANNABINOID SCREEN,URINE NEGATIVE (NEGATIVE); COCAINE SCREEN,URINE NEGATIVE (NEGATIVE); METHADONE SCREEN, URINE NEGATIVE (NEGATIVE); OPIATE SCREEN,URINE NEGATIVE (NEGATIVE)
[2018-01-11 12:20] LABS: PHENCYCLIDINE SCREEN,URINE NEGATIVE (NEGATIVE)
[2018-01-11 16:00] VITALS: BP 123/60
[2018-01-11 18:26] VITALS: BP 118/70
[2018-01-11] MEDS: ACETAMINOPHEN 325 MG TABLET PO PRN (18:29)
[2018-01-11] MEDS: CLOTRIMAZOLE 1% 45 GM VAGINAL CREAM VG SCH (21:07)
[2018-01-11] MEDS: ZOLPIDEM TARTRATE 10 MG TABLET PO PRN (21:07)
[2018-01-12] MEDS: LORazepam 2 MG TABLET PO PRN (00:07)
[2018-01-12] MEDS: HALOPERIDOL 5 MG TABLET PO PRN (00:07)
[2018-01-12 01:00] VITALS: BP 114/70
[2018-01-12] MEDS: ZIPRASIDONE HCL 80 MG CAPSULE PO SCH (06:22)
[2018-01-12] MEDS: CAPSAICIN 0.025% 60 GM CREAM TP SCH (08:03)
[2018-01-12] MEDS: DIVALPROEX SODIUM 250 MG DR TABLET PO SCH (08:04)
[2018-01-12] MEDS: BENZTROPINE MESYLATE 2 MG TABLET PO SCH (08:04)
[2018-01-12] MEDS: PANTOPRAZOLE SODIUM 40 MG DR TABLET PO SCH (08:04)
[2018-01-12] MEDS: LamoTRIgine 100 MG TABLET PO SCH (08:04)
[2018-01-12] MEDS ORDERED: LAMO100 PO (08:28)
[2018-01-12] MEDS ORDERED: ZIPR80CA2 PO (08:28)
[2018-01-12] MEDS ORDERED: BENZ2TAB10 PO (08:28)
[2018-01-12] MEDS ORDERED: PANT40TA25 PO (08:29)
[2018-01-12 08:43] VITALS: BP 101/60
== END 2018-01-12 13:50 | disposition home or self-care (01) | DRG 753 ==
LOC: B3A 14:22
PROVIDERS: ADMIT Psychiatry & Neurology Psychiatry; ATTEND Psychiatry & Neurology Psychiatry
DX: F31.2 Bipolar disorder, current episode manic severe with psychotic features (principal); E78.5 Hyperlipidemia, unspecified; F12.90 Cannabis use, unspecified, uncomplicated; F15.90 Other stimulant use, unspecified, uncomplicated; F41.9 Anxiety disorder, unspecified; R12 Heartburn; Z79.899 Other long term (current) drug therapy
CPT/HCPCS: 80307; 83036; 84439; 84443; 87081

== ENCOUNTER 2019-01-12 02:26 | Emergency (ER) | payer MEDICAID, OTHER ==
[~2019-01-12] VITALS: Ht 160 cm; Wt 86.4 kg
[~2019-01-12 02:26] MED LIST changes: +BENZ2TAB10 PO; +DIVA-76 PO; -DIVA250T25 PO; +LAMO100 PO; -LAMO25 PO; +PANT40TA25 PO; -ZIPR40CA2 PO; +ZIPR80CA2 PO
[2019-01-12] MEDS ORDERED: MECL-111 PO (03:18)
[2019-01-12] MEDS ORDERED: HALO5I IM (03:18)
[2019-01-12] MEDS ORDERED: ATOR40TA28 PO (03:18)
[2019-01-12] MEDS ORDERED: DIPH50 PO (03:18)
[2019-01-12] MEDS ORDERED: FAMO20 PO (03:19)
[2019-01-12] MEDS ORDERED: DOXYCYCLINE HYCLATE 100 MG CAPSULE PO ONE (03:30)
[2019-01-12] MEDS ORDERED: BUPIVACAINE HCL/PF 0.25% 30 ML VIAL INJ ONE (03:30)
[2019-01-12] MEDS ORDERED: CEPHALEXIN MONOHYDRATE 500 MG CAPSULE PO ONE (03:30)
[2019-01-12] MEDS ORDERED: BUPIVACAINE HCL/PF 0.25% 10 ML VIAL INJ ONE (03:45)
[2019-01-12 04:24] VITALS: BP 119/73
== END 2019-01-12 05:06 | disposition home or self-care (01) ==
LOC: EMS 02:26
DX: L05.01 Pilonidal cyst with abscess (principal); F20.9 Schizophrenia, unspecified; F12.90 Cannabis use, unspecified, uncomplicated; F11.90 Opioid use, unspecified, uncomplicated; Z79.899 Other long term (current) drug therapy
CPT/HCPCS: 10080; 99284; J3490

== ENCOUNTER 2019-01-18 21:39 | Emergency (ER) | payer OTHER ==
[~2019-01-18] VITALS: Ht 154.9 cm; Wt 90.9 kg
[~2019-01-18 21:39] MED LIST changes: +ATOR40TA28 PO; -BENZ2TAB10 PO; +DIPH50 PO; -DIVA-76 PO; +FAMO20 PO; +HALO5I IM; -LAMO100 PO; +MECL-111 PO; -PANT40TA25 PO; -ZIPR80CA2 PO
[2019-01-18 22:39] VITALS: BP 110/68
== END 2019-01-18 23:06 | disposition home or self-care (01) ==
LOC: EMS 21:42
DX: Z48.00 Encounter for change or removal of nonsurgical wound dressing (principal); F99 Mental disorder, not otherwise specified; F20.9 Schizophrenia, unspecified; F11.90 Opioid use, unspecified, uncomplicated; F12.90 Cannabis use, unspecified, uncomplicated; F15.90 Other stimulant use, unspecified, uncomplicated; Z88.8 Allergy status to other drugs, medicaments and biological substances

== ENCOUNTER 2019-06-03 13:00 | Inpatient (IN) | payer MEDICAID, OTHER ==
[~2019-06-03] VITALS: Ht 154.9 cm; Wt 89.8 kg
[2019-06-03] MEDS ORDERED: PALI78DI IM (13:09)
[2019-06-03 14:34] LABS: BASOPHILS % (AUTO) 0.6 % (0.0-2.0); HEMATOCRIT 41.6 % (36-46); HEMOGLOBIN 13.8 g/dL (12.0-16.0); LYMPHOCYTES # (AUTO) 2.2 K/uL (1.0-4.8); LYMPHOCYTES % (AUTO) 19.9 % (22.0-44.0); MEAN CORPUSCULAR HEMOGLOBIN 30.1 pg (26.0-34.0); MEAN CORPUSCULAR HGB CONC 33.1 G/dL (31.0-37.0); MEAN CORPUSCULAR VOLUME 91 fL (80-100); MONOCYTES # (AUTO) 0.9 K/uL (0.1-1.0); MONOCYTES % (AUTO) 8.4 % (2.0-9.0); NEUTROPHILS # (AUTO) 7.7 K/uL (1.8-7.7); NEUTROPHILS % (AUTO) 69.1 % (40.0-70.0); PLATELET COUNT (AUTO) 201 K/uL (150-450); RED BLOOD CELL COUNT(AUTO) 4.58 MIL/uL (4.00-5.20); RED CELL DISTRIBUTION WIDTH 13.6 % (11.5-14.5)
[2019-06-03 14:43] LABS: ANION GAP 5 mmol/L (8-16); CARBON DIOXIDE 27 mmol/L (22-29); CHLORIDE 103 mmol/L (98-107); CREATININE 0.68 mg/dL (0.60-1.30); GLOMERULAR FILTR. RATE CALC > 60 mL/min (>60); GLUCOSE,RANDOM 99 mg/dL (70-110); POTASSIUM 3.9 mmol/L (3.5-5.1); SODIUM SERUM 135 mmol/L (136-145); UREA NITROGEN, BLOOD 10 mg/dL (7-18)
[2019-06-03 14:54] LABS: AMPHET/METH SCREEN,URINE NEGATIVE (NEGATIVE); BARBITURATE SCREEN, URINE NEGATIVE (NEGATIVE); BENZODIAZEPINES SCREEN,URINE NEGATIVE (NEGATIVE); CANNABINOID SCREEN,URINE NEGATIVE (NEGATIVE); COCAINE SCREEN,URINE NEGATIVE (NEGATIVE); METHADONE SCREEN, URINE NEGATIVE (NEGATIVE); OPIATE SCREEN,URINE NEGATIVE (NEGATIVE); PHENCYCLIDINE SCREEN,URINE NEGATIVE (NEGATIVE)
[2019-06-03 14:56] LABS: ALANINE AMINOTRANSFERASE 15 U/L (12-78); ALBUMIN 3.7 g/dL (3.4-5.0); ALKALINE PHOSPHATASE 77 U/L (46-116); ASPARTATE AMINOTRANSFERASE 16 U/L (15-37); BILIRUBIN,TOTAL 0.2 mg/dL (0.1-1.0); HCG,QUANTITATIVE < 1 mIU/mL (0-6); TOTAL PROTEIN, SERUM 7.4 g/dL (6.4-8.2)
[2019-06-03] MEDS ORDERED: LORazepam 2 MG TABLET PO PRN (15:00)
[2019-06-03] MEDS ORDERED: ACETAMINOPHEN 325 MG TABLET PO PRN (15:00)
[2019-06-03] MEDS ORDERED: TUBERCULIN, PURIFIED PROTEIN DERIVATIVE 5 TU/0.1 ML SYRINGE ID ONE (15:00)
[2019-06-03] MEDS ORDERED: MAGNESIUM HYDROXIDE SUSPENSION 30 ML UDCUP PO PRN (15:00)
[2019-06-03] MEDS ORDERED: HydrOXYzine PAMOATE 50 MG CAPSULE PO PRN (15:00)
[2019-06-03] MEDS ORDERED: PROMETHAZINE HCL 25 MG TABLET PO PRN (15:00)
[2019-06-03] MEDS ORDERED: CYANOCOBALAMIN 1,000 MCG/ML VIAL IM ONE (15:00)
[2019-06-03] MEDS ORDERED: GuaiFENesin/D-METHORPHAN [SUGAR-FREE] 200-20MG/10 ML SYRUP UDCUP PO PRN (15:00)
[2019-06-03] MEDS ORDERED: LOPERAMIDE HCL 2 MG CAPSULE PO PRN (15:00)
[2019-06-03 17:15] VITALS: BP 96/76
[2019-06-03] MEDS: THIAMINE HCL 100 MG TABLET PO SCH (17:57)
[2019-06-03] MEDS ORDERED: OLANZapine 5 MG RAPDIS TABLET PO SCH (21:00)
[2019-06-03] MEDS: ZOLPIDEM TARTRATE 10 MG TABLET PO PRN (22:58)
[2019-06-04] VITALS: BP 119/67
[2019-06-04] MEDS: OLANZapine 5 MG RAPDIS TABLET PO PRN (00:15)
[2019-06-04] MEDS: MAG HYDROX/AL HYDROX/SIMETH ES 30 ML SUSPENSION UDCUP PO PRN ×3 (05:13→16:35)
[2019-06-04 07:19] LABS: CHOL/HDL RATIO 3.4 (3.9-5.7); FREE T4 (FREE THYROXINE) 1.23 ng/dL (0.76-1.46); THYROID STIMULATING HORMONE 7.47 uIU/mL (0.36-3.74)
[2019-06-04] MEDS: MULTIVITAMINS WITH MINERALS, THERAPEUTIC TABLET PO SCH (08:55)
[2019-06-04] MEDS: NALTREXONE HCL 50 MG TABLET PO SCH (08:55)
[2019-06-04] MEDS: FOLIC ACID 1 MG TABLET PO SCH (08:55)
[2019-06-04] MEDS: THIAMINE HCL 100 MG TABLET PO SCH ×2 (08:55→16:24)
[2019-06-04 13:52] VITALS: BP 102/61
[2019-06-04 18:37] VITALS: BP 119/74
[2019-06-05 02:20] VITALS: BP 110/68
[2019-06-05 07:07] LABS: BASOPHILS % (AUTO) 0.6 % (0.0-2.0); EOSINOPHILS % (AUTO) 4.2 % (1.0-6.0); HEMATOCRIT 38.4 % (36-46); HEMOGLOBIN 12.8 g/dL (12.0-16.0); LYMPHOCYTES % (AUTO) 31.9 % (22.0-44.0); MEAN CORPUSCULAR HEMOGLOBIN 30.6 pg (26.0-34.0); MEAN CORPUSCULAR HGB CONC 33.4 G/dL (31.0-37.0); MEAN CORPUSCULAR VOLUME 92 fL (80-100); MONOCYTES % (AUTO) 10.3 % (2.0-9.0); RED CELL DISTRIBUTION WIDTH 13.9 % (11.5-14.5)
[2019-06-05] MEDS ORDERED: CloZAPine 25 MG TABLET PO SCH (09:00)
[2019-06-05 09:02] VITALS: BP 100/60
[2019-06-05] MEDS: THIAMINE HCL 100 MG TABLET PO SCH ×2 (09:04→17:50)
[2019-06-05] MEDS: MULTIVITAMINS WITH MINERALS, THERAPEUTIC TABLET PO SCH (09:04)
[2019-06-05] MEDS: NALTREXONE HCL 50 MG TABLET PO SCH (09:04)
[2019-06-05] MEDS: FOLIC ACID 1 MG TABLET PO SCH (09:04)
[2019-06-05] MEDS: FLUoxetine HCL 10 MG CAPSULE PO SCH (09:05)
[2019-06-05 09:51] LABS: PLATELET COUNT (AUTO) 181 K/uL (150-450)
[2019-06-05 16:19] VITALS: BP 106/66
[2019-06-06] MEDS ORDERED: CloZAPine 25 MG TABLET PO SCH ×2 (09:00→21:00)
[2019-06-06] MEDS: THIAMINE HCL 100 MG TABLET PO SCH ×2 (09:37→17:55)
[2019-06-06] MEDS: FOLIC ACID 1 MG TABLET PO SCH (09:37)
[2019-06-06] MEDS: FLUoxetine HCL 10 MG CAPSULE PO SCH (09:38)
[2019-06-06] MEDS: MULTIVITAMINS WITH MINERALS, THERAPEUTIC TABLET PO SCH (09:38)
[2019-06-06] MEDS: NALTREXONE HCL 50 MG TABLET PO SCH (09:38)
[2019-06-06 12:46] VITALS: BP 108/70
[2019-06-06 16:21] VITALS: BP 116/74
[2019-06-07] MEDS: FLUoxetine HCL 10 MG CAPSULE PO SCH (08:20)
[2019-06-07] MEDS: THIAMINE HCL 100 MG TABLET PO SCH ×2 (08:20→16:04)
[2019-06-07] MEDS: FOLIC ACID 1 MG TABLET PO SCH (08:20)
[2019-06-07] MEDS: MULTIVITAMINS WITH MINERALS, THERAPEUTIC TABLET PO SCH (08:20)
[2019-06-07] MEDS: NALTREXONE HCL 50 MG TABLET PO SCH (08:20)
[2019-06-07] MEDS ORDERED: CloZAPine 25 MG TABLET PO SCH ×2 (09:00→21:00)
[2019-06-07 16:52] VITALS: BP 102/65
[2019-06-07] MEDS: ZOLPIDEM TARTRATE 10 MG TABLET PO PRN (20:43)
[2019-06-08 00:31] VITALS: BP 119/75
[2019-06-08] MEDS: NALTREXONE HCL 50 MG TABLET PO SCH (08:37)
[2019-06-08] MEDS: FOLIC ACID 1 MG TABLET PO SCH (08:37)
[2019-06-08] MEDS: FLUoxetine HCL 10 MG CAPSULE PO SCH (08:38)
[2019-06-08] MEDS: THIAMINE HCL 100 MG TABLET PO SCH ×2 (08:38→16:45)
[2019-06-08] MEDS: MULTIVITAMINS WITH MINERALS, THERAPEUTIC TABLET PO SCH (08:38)
[2019-06-08] MEDS: CloZAPine 25 MG TABLET PO SCH ×2 (08:38→20:30)
[2019-06-09 00:17] VITALS: BP 154/106
[2019-06-09] MEDS: MAG HYDROX/AL HYDROX/SIMETH ES 30 ML SUSPENSION UDCUP PO PRN (02:56)
[2019-06-09] MEDS: FLUoxetine HCL 10 MG CAPSULE PO SCH (08:40)
[2019-06-09] MEDS: MULTIVITAMINS WITH MINERALS, THERAPEUTIC TABLET PO SCH (08:40)
[2019-06-09] MEDS: FOLIC ACID 1 MG TABLET PO SCH (08:40)
[2019-06-09] MEDS: CloZAPine 25 MG TABLET PO SCH ×2 (08:40→20:53)
[2019-06-09] MEDS: NALTREXONE HCL 50 MG TABLET PO SCH (08:40)
[2019-06-09] MEDS: THIAMINE HCL 100 MG TABLET PO SCH ×2 (08:40→17:00)
[2019-06-09 10:38] VITALS: BP 118/86
[2019-06-09 16:31] VITALS: BP 122/73
[2019-06-10 08:00] VITALS: BP 147/81
[2019-06-10] MEDS ORDERED: CloZAPine 25 MG TABLET PO SCH (09:00)
[2019-06-10] MEDS: MULTIVITAMINS WITH MINERALS, THERAPEUTIC TABLET PO SCH (09:46)
[2019-06-10] MEDS: NALTREXONE HCL 50 MG TABLET PO SCH (09:46)
[2019-06-10] MEDS: FLUoxetine HCL 10 MG CAPSULE PO SCH (09:46)
[2019-06-10] MEDS: FOLIC ACID 1 MG TABLET PO SCH (09:46)
[2019-06-10] MEDS: THIAMINE HCL 100 MG TABLET PO SCH ×2 (09:46→16:15)
[2019-06-10 16:06] VITALS: BP 119/65
[2019-06-10] MEDS ORDERED: CloZAPine 100 MG TABLET PO SCH (21:00)
[2019-06-10] MEDS: MAG HYDROX/AL HYDROX/SIMETH ES 30 ML SUSPENSION UDCUP PO PRN (21:25)
[2019-06-11] MEDS ORDERED: CloZAPine 25 MG TABLET PO SCH (09:00)
[2019-06-11] MEDS: NALTREXONE HCL 50 MG TABLET PO SCH (09:40)
[2019-06-11] MEDS: THIAMINE HCL 100 MG TABLET PO SCH ×2 (09:40→17:17)
[2019-06-11] MEDS: FOLIC ACID 1 MG TABLET PO SCH (09:40)
[2019-06-11] MEDS: FLUoxetine HCL 10 MG CAPSULE PO SCH (09:40)
[2019-06-11] MEDS: MULTIVITAMINS WITH MINERALS, THERAPEUTIC TABLET PO SCH (09:40)
[2019-06-11] MEDS ORDERED: CloZAPine 100 MG TABLET PO SCH (21:00)
[2019-06-12 07:08] LABS: BASOPHILS % (AUTO) 0.6 % (0.0-2.0); EOSINOPHILS % (AUTO) 4.3 % (1.0-6.0); HEMOGLOBIN 13.9 g/dL (12.0-16.0); LYMPHOCYTES # (AUTO) 3.7 K/uL (1.0-4.8); MEAN CORPUSCULAR HEMOGLOBIN 29.4 pg (26.0-34.0); MEAN CORPUSCULAR HGB CONC 32.3 G/dL (31.0-37.0); MEAN CORPUSCULAR VOLUME 91 fL (80-100); MONOCYTES # (AUTO) 0.9 K/uL (0.1-1.0); MONOCYTES % (AUTO) 6.9 % (2.0-9.0); NEUTROPHILS # (AUTO) 7.2 K/uL (1.8-7.7); NEUTROPHILS % (AUTO) 58.2 % (40.0-70.0); PLATELET COUNT (AUTO) 222 K/uL (150-450); RED BLOOD CELL COUNT(AUTO) 4.71 MIL/uL (4.00-5.20); RED CELL DISTRIBUTION WIDTH 13.9 % (11.5-14.5)
[2019-06-12] MEDS ORDERED: CloZAPine 25 MG TABLET PO SCH (09:00)
[2019-06-12 09:37] VITALS: BP 131/86
[2019-06-12] MEDS: FOLIC ACID 1 MG TABLET PO SCH (10:26)
[2019-06-12] MEDS: NALTREXONE HCL 50 MG TABLET PO SCH (10:26)
[2019-06-12] MEDS: MULTIVITAMINS WITH MINERALS, THERAPEUTIC TABLET PO SCH (10:26)
[2019-06-12] MEDS: THIAMINE HCL 100 MG TABLET PO SCH ×2 (10:27→17:12)
[2019-06-12] MEDS: FLUoxetine HCL 10 MG CAPSULE PO SCH (10:28)
[2019-06-12 18:26] VITALS: BP 116/63
[2019-06-12] MEDS ORDERED: CloZAPine 100 MG TABLET PO SCH (21:00)
[2019-06-12] MEDS: ZOLPIDEM TARTRATE 10 MG TABLET PO PRN (21:11)
[2019-06-13] MEDS: OLANZapine 5 MG RAPDIS TABLET PO PRN (00:12)
[2019-06-13 04:38] VITALS: BP 120/86
[2019-06-13 08:00] VITALS: BP 129/80
[2019-06-13] MEDS: MULTIVITAMINS WITH MINERALS, THERAPEUTIC TABLET PO SCH (09:51)
[2019-06-13] MEDS: THIAMINE HCL 100 MG TABLET PO SCH (09:51)
[2019-06-13] MEDS: FOLIC ACID 1 MG TABLET PO SCH (09:51)
[2019-06-13] MEDS: CloZAPine 100 MG TABLET PO SCH ×2 (09:51→21:24)
[2019-06-13] MEDS: NALTREXONE HCL 50 MG TABLET PO SCH (09:51)
[2019-06-13] MEDS: FLUoxetine HCL 20 MG CAPSULE PO SCH (09:51)
[2019-06-13 17:11] VITALS: BP 138/94
[2019-06-14 09:00] VITALS: BP 107/87
[2019-06-14] MEDS: NALTREXONE HCL 50 MG TABLET PO SCH (09:41)
[2019-06-14] MEDS: CloZAPine 100 MG TABLET PO SCH ×2 (09:41→20:29)
[2019-06-14] MEDS: MULTIVITAMINS WITH MINERALS, THERAPEUTIC TABLET PO SCH (09:41)
[2019-06-14] MEDS: FLUoxetine HCL 20 MG CAPSULE PO SCH (09:41)
[2019-06-14 16:42] VITALS: BP 127/79
[2019-06-15] VITALS: BP 116/63
[2019-06-15 08:00] VITALS: BP 91/52
[2019-06-15] MEDS: MAG HYDROX/AL HYDROX/SIMETH ES 30 ML SUSPENSION UDCUP PO PRN ×2 (08:39→20:07)
[2019-06-15] MEDS: MULTIVITAMINS WITH MINERALS, THERAPEUTIC TABLET PO SCH (08:39)
[2019-06-15] MEDS: OLANZapine 5 MG RAPDIS TABLET PO PRN (08:39)
[2019-06-15] MEDS: NALTREXONE HCL 50 MG TABLET PO SCH (08:39)
[2019-06-15] MEDS: FLUoxetine HCL 20 MG CAPSULE PO SCH (08:41)
[2019-06-15] MEDS ORDERED: CloZAPine 25 MG TABLET PO SCH (09:00)
[2019-06-15 17:51] VITALS: BP 114/68
[2019-06-15] MEDS ORDERED: CloZAPine 100 MG TABLET PO SCH (21:00)
[2019-06-16 08:00] VITALS: BP 122/98
[2019-06-16] MEDS: NALTREXONE HCL 50 MG TABLET PO SCH (08:03)
[2019-06-16] MEDS: FLUoxetine HCL 20 MG CAPSULE PO SCH (08:03)
[2019-06-16] MEDS: OLANZapine 5 MG RAPDIS TABLET PO PRN (08:03)
[2019-06-16] MEDS: MULTIVITAMINS WITH MINERALS, THERAPEUTIC TABLET PO SCH (08:03)
[2019-06-16] MEDS ORDERED: CloZAPine 25 MG TABLET PO SCH (09:00)
[2019-06-16 16:37] VITALS: BP 126/86
[2019-06-16] MEDS ORDERED: CloZAPine 100 MG TABLET PO SCH (21:00)
[2019-06-17 02:15] VITALS: BP 146/84
[2019-06-17 09:00] VITALS: BP 123/87
[2019-06-17] MEDS ORDERED: CloZAPine 100 MG TABLET PO SCH ×2 (09:00→21:00)
[2019-06-17] MEDS: FLUoxetine HCL 20 MG CAPSULE PO SCH (09:06)
[2019-06-17] MEDS: MULTIVITAMINS WITH MINERALS, THERAPEUTIC TABLET PO SCH (09:06)
[2019-06-17] MEDS: NALTREXONE HCL 50 MG TABLET PO SCH (09:06)
[2019-06-17] MEDS ORDERED: CLOZ100 PO ×2 (10:29→16:21)
[2019-06-17] MEDS ORDERED: NALT50TA PO (10:29)
[2019-06-17] MEDS ORDERED: FLUO-191 PO ×2 (10:29→16:21)
[2019-06-17] MEDS ORDERED: NALT50TA6 PO (16:22)
== END 2019-06-17 16:00 | disposition home or self-care (01) | DRG 750 ==
LOC: EMS 13:02 → 3EI 16:13
PROVIDERS: ADMIT Psychiatry & Neurology Psychiatry; ATTEND Psychiatry & Neurology Psychiatry
DX: F25.1 Schizoaffective disorder, depressive type (principal); Z91.19 Patient's noncompliance with other medical treatment and regimen; E66.9 Obesity, unspecified; F25.0 Schizoaffective disorder, bipolar type; E78.5 Hyperlipidemia, unspecified; F11.90 Opioid use, unspecified, uncomplicated; F15.90 Other stimulant use, unspecified, uncomplicated; Z79.899 Other long term (current) drug therapy; Z68.37 Body mass index [BMI] 37.0-37.9, adult
CPT/HCPCS: 80159; 84439; 84443; 86592; 96372; G0480; J3420

== ENCOUNTER 2019-07-27 11:02 | Emergency (ER) | payer MEDICAID, OTHER ==
[~2019-07-27] VITALS: Ht 154.9 cm; Wt 90.5 kg
[~2019-07-27 11:02] MED LIST changes: -ATOR40TA28 PO; +CLOZ100 PO; -DIPH50 PO; -FAMO20 PO; +FLUO-191 PO; -HALO5I IM; -MECL-111 PO; +NALT50TA PO; +NALT50TA6 PO
[2019-07-27] MEDS ORDERED: PALI1.5T PO (11:13)
[2019-07-27 12:20] LABS: BASOPHILS % (AUTO) 0.7 % (0.0-2.0); EOSINOPHILS % (AUTO) 3.1 % (1.0-6.0); HEMATOCRIT 40.6 % (36-46); HEMOGLOBIN 13.4 g/dL (12.0-16.0); LYMPHOCYTES # (AUTO) 2.6 K/uL (1.0-4.8); LYMPHOCYTES % (AUTO) 21.8 % (22.0-44.0); MEAN CORPUSCULAR HEMOGLOBIN 30.1 pg (26.0-34.0); MEAN CORPUSCULAR HGB CONC 33.1 G/dL (31.0-37.0); MEAN CORPUSCULAR VOLUME 91 fL (80-100); MONOCYTES # (AUTO) 1.3 K/uL (0.1-1.0); MONOCYTES % (AUTO) 10.8 % (2.0-9.0); NEUTROPHILS # (AUTO) 7.5 K/uL (1.8-7.7); NEUTROPHILS % (AUTO) 63.6 % (40.0-70.0); PLATELET COUNT (AUTO) 234 K/uL (150-450); RED BLOOD CELL COUNT(AUTO) 4.45 MIL/uL (4.00-5.20); RED CELL DISTRIBUTION WIDTH 13.2 % (11.5-14.5)
[2019-07-27 12:32] LABS: ANION GAP 5 mmol/L (8-16); CALCIUM, TOTAL 8.4 mg/dL (8.8-10.5); CARBON DIOXIDE 30 mmol/L (22-29); CHLORIDE 102 mmol/L (98-107); CREATININE 0.54 mg/dL (0.60-1.30); GLOMERULAR FILTR. RATE CALC > 60 mL/min (>60); GLUCOSE,RANDOM 91 mg/dL (70-110); POTASSIUM 3.8 mmol/L (3.5-5.1); SODIUM SERUM 137 mmol/L (136-145); UREA NITROGEN, BLOOD 7 mg/dL (7-18)
[2019-07-27 12:55] LABS: ALANINE AMINOTRANSFERASE 38 U/L (12-78); ALBUMIN 3.4 g/dL (3.4-5.0); ALKALINE PHOSPHATASE 106 U/L (46-116); ASPARTATE AMINOTRANSFERASE 15 U/L (15-37); BILIRUBIN,TOTAL 0.2 mg/dL (0.1-1.0); HCG,QUANTITATIVE < 1 mIU/mL (0-6); THYROID STIMULATING HORMONE 0.93 uIU/mL (0.36-3.74); TOTAL PROTEIN, SERUM 7.3 g/dL (6.4-8.2)
[2019-07-27 13:01] LABS: APPEARANCE,URINE CLEAR (CLEAR); BILIRUBIN,URINE NEGATIVE (NEGATIVE); GLUCOSE, URINE (UA) NEGATIVE (NEGATIVE); KETONES,URINE NEGATIVE (NEGATIVE); LEUKOCYTE ESTERASE ,URINE NEGATIVE (NEGATIVE); NITRATE,URINE NEGATIVE (NEGATIVE); OCCULT BLOOD,URINE NEGATIVE (NEGATIVE); PROTEIN,URINE NEGATIVE (NEGATIVE); UROBILINOGEN,URINE 0.2 mg/dL (<=1.0)
[2019-07-27 13:04] LABS: BACTERIA,URINE None Seen /HPF (None Seen); RBC,URINE 0-2 /HPF (0-2); SQUAMOUS EPITHELIAL CELL,UR Few /LPF (None Seen); WBC,URINE None Seen /HPF (0-5)
[2019-07-27 13:17] VITALS: BP 137/53
== END 2019-07-27 13:25 | disposition home or self-care (01) ==
LOC: EMS 11:05
DX: R53.82 Chronic fatigue, unspecified (principal); R53.81 Other malaise; F20.9 Schizophrenia, unspecified; E03.9 Hypothyroidism, unspecified; F12.90 Cannabis use, unspecified, uncomplicated; F11.90 Opioid use, unspecified, uncomplicated
CPT/HCPCS: 84443

== ENCOUNTER 2019-11-25 13:43 | Emergency (ER) | payer OTHER ==
[~2019-11-25] VITALS: Ht 154.9 cm; Wt 90.5 kg
[~2019-11-25 13:43] MED LIST changes: -CLOZ100 PO; -FLUO-191 PO; -NALT50TA PO; -NALT50TA6 PO; +PALI1.5T PO
[2019-11-25 13:48] VITALS: BP 95/62
[2019-11-25 15:05] LABS: BASOPHILS % (AUTO) 0.4 % (0.0-2.0); EOSINOPHILS % (AUTO) 3.5 % (1.0-6.0); HEMATOCRIT 41.6 % (36-46); LYMPHOCYTES # (AUTO) 2.5 K/uL (1.0-4.8); LYMPHOCYTES % (AUTO) 22.1 % (22.0-44.0); MEAN CORPUSCULAR HEMOGLOBIN 29.5 pg (26.0-34.0); MEAN CORPUSCULAR HGB CONC 33.5 G/dL (31.0-37.0); MEAN CORPUSCULAR VOLUME 88 fL (80-100); MONOCYTES % (AUTO) 9.3 % (2.0-9.0); NEUTROPHILS # (AUTO) 7.2 K/uL (1.8-7.7); NEUTROPHILS % (AUTO) 64.7 % (40.0-70.0); PLATELET COUNT (AUTO) 195 K/uL (150-450); RED BLOOD CELL COUNT(AUTO) 4.73 MIL/uL (4.00-5.20); RED CELL DISTRIBUTION WIDTH 14.2 % (11.5-14.5)
[2019-11-25 15:20] LABS: ANION GAP 7 mmol/L (8-16); CALCIUM, TOTAL 8.9 mg/dL (8.8-10.5); CARBON DIOXIDE 28 mmol/L (22-29); CHLORIDE 104 mmol/L (98-107); CREATININE 0.57 mg/dL (0.60-1.30); GLOMERULAR FILTR. RATE CALC > 60 mL/min (>60); GLUCOSE,RANDOM 99 mg/dL (70-110); SODIUM SERUM 139 mmol/L (136-145); UREA NITROGEN, BLOOD 15 mg/dL (7-18)
[2019-11-25 15:35] LABS: ALANINE AMINOTRANSFERASE 32 U/L (12-78); ALBUMIN 3.7 g/dL (3.4-5.0); ALKALINE PHOSPHATASE 86 U/L (46-116); ASPARTATE AMINOTRANSFERASE 11 U/L (15-37); BILIRUBIN,TOTAL 0.1 mg/dL (0.1-1.0); HCG,QUANTITATIVE < 1 mIU/mL (0-6); THYROID STIMULATING HORMONE 1.29 uIU/mL (0.36-3.74); TOTAL PROTEIN, SERUM 7.3 g/dL (6.4-8.2)
== END 2019-11-25 16:17 | disposition home or self-care (01) ==
LOC: EMS 13:45
DX: R53.83 Other fatigue (principal); E03.9 Hypothyroidism, unspecified; F20.9 Schizophrenia, unspecified; F11.90 Opioid use, unspecified, uncomplicated; F12.90 Cannabis use, unspecified, uncomplicated; F15.90 Other stimulant use, unspecified, uncomplicated
CPT/HCPCS: 84439; 84443

== ENCOUNTER 2019-12-01 00:13 | Emergency (ER) | payer OTHER ==
[~2019-12-01] VITALS: Ht 154.9 cm; Wt 90.9 kg
[2019-12-01] MEDS ORDERED: LORazepam 2 MG TABLET PO ONE (01:45)
[2019-12-01 03:11] VITALS: BP 119/69
== END 2019-12-01 03:11 | disposition home or self-care (01) ==
LOC: EMS 00:17
DX: F41.9 Anxiety disorder, unspecified (principal); G47.00 Insomnia, unspecified; F20.9 Schizophrenia, unspecified; E03.9 Hypothyroidism, unspecified; F15.90 Other stimulant use, unspecified, uncomplicated; F12.90 Cannabis use, unspecified, uncomplicated; Z79.899 Other long term (current) drug therapy

== ENCOUNTER 2019-12-13 12:00 | Emergency (ER) | payer OTHER ==
[~2019-12-13] VITALS: Ht 154.9 cm; Wt 90.9 kg
[2019-12-13 12:02] VITALS: BP 112/70
== END 2019-12-13 12:58 | disposition home or self-care (01) ==
LOC: EMS 12:06
DX: F41.9 Anxiety disorder, unspecified (principal); E03.9 Hypothyroidism, unspecified; F20.9 Schizophrenia, unspecified; F11.90 Opioid use, unspecified, uncomplicated; F12.90 Cannabis use, unspecified, uncomplicated; F15.90 Other stimulant use, unspecified, uncomplicated

== ENCOUNTER 2020-01-01 00:17 | Emergency (ER) | payer OTHER ==
[~2020-01-01] VITALS: Ht 154.9 cm; Wt 88.6 kg
[2020-01-01 01:58] VITALS: BP 116/78
== END 2020-01-01 04:20 | disposition home or self-care (01) ==
LOC: EMS 00:18
DX: F41.9 Anxiety disorder, unspecified (principal); E03.9 Hypothyroidism, unspecified; F20.9 Schizophrenia, unspecified; F11.90 Opioid use, unspecified, uncomplicated; F12.90 Cannabis use, unspecified, uncomplicated; F15.90 Other stimulant use, unspecified, uncomplicated

== ENCOUNTER 2020-01-09 00:06 | Emergency (ER) | payer OTHER | END 2020-01-09 02:42 | disposition left against medical advice (07) | LOC: EMS 00:06 | DX: F20.0 Paranoid schizophrenia (principal); F11.90 Opioid use, unspecified, uncomplicated; F12.90 Cannabis use, unspecified, uncomplicated ==

== ENCOUNTER 2020-02-10 22:27 | Emergency (ER) | payer OTHER ==
[~2020-02-10] VITALS: Ht 154.9 cm; Wt 88.6 kg
[2020-02-10 22:29] VITALS: BP 123/57
== END 2020-02-10 23:10 | disposition left against medical advice (07) ==
LOC: EMS 22:27
DX: R42 Dizziness and giddiness (principal); Z53.21 Procedure and treatment not carried out due to patient leaving prior to being seen by health care provider

== ENCOUNTER 2020-02-23 04:27 | Emergency (ER) | payer OTHER ==
[~2020-02-23] VITALS: Ht 154.9 cm; Wt 86.4 kg
[2020-02-23 06:54] LABS: AMPHET/METH SCREEN,URINE NEGATIVE (NEGATIVE); BARBITURATE SCREEN, URINE NEGATIVE (NEGATIVE); BENZODIAZEPINES SCREEN,URINE NEGATIVE (NEGATIVE); CANNABINOID SCREEN,URINE NEGATIVE (NEGATIVE); COCAINE SCREEN,URINE NEGATIVE (NEGATIVE); METHADONE SCREEN, URINE NEGATIVE (NEGATIVE); OPIATE SCREEN,URINE NEGATIVE (NEGATIVE)
[2020-02-23 06:56] LABS: PHENCYCLIDINE SCREEN,URINE NEGATIVE (NEGATIVE)
[2020-02-23 07:05] VITALS: BP 100/55
== END 2020-02-23 08:15 | disposition home or self-care (01) ==
LOC: EMS 04:27
DX: F22 Delusional disorders (principal); F20.9 Schizophrenia, unspecified; F12.90 Cannabis use, unspecified, uncomplicated; F15.90 Other stimulant use, unspecified, uncomplicated; F11.90 Opioid use, unspecified, uncomplicated

== ENCOUNTER 2020-02-23 21:12 | Emergency (ER) | payer MEDICARE, OTHER ==
[~2020-02-23] VITALS: Ht 154.9 cm; Wt 86.4 kg
[2020-02-23] MEDS ORDERED: ACETAMINOPHEN 500 MG TABLET PO ONE (23:00)
[2020-02-24 00:29] VITALS: BP 110/64
== END 2020-02-24 02:09 | disposition home or self-care (01) ==
LOC: EMS 21:16
DX: F20.9 Schizophrenia, unspecified (principal); E03.9 Hypothyroidism, unspecified; F15.90 Other stimulant use, unspecified, uncomplicated; F12.90 Cannabis use, unspecified, uncomplicated

== ENCOUNTER 2020-04-21 22:37 | Inpatient (IN) | payer MEDICAID, OTHER ==
[~2020-04-21] VITALS: Ht 154.9 cm; Wt 92.5 kg
[2020-04-21] MEDS ORDERED: OLAN10TA3 PO (22:53)
[2020-04-21] MEDS ORDERED: TRAZ-252 PO (22:53)
[2020-04-22] MEDS ORDERED: ACETAMINOPHEN 500 MG TABLET PO ONE
[2020-04-22] MEDS ORDERED: MAG HYDROX/AL HYDROX/SIMETH ES 30 ML SUSPENSION UDCUP PO ONE
[2020-04-22] MEDS ORDERED: QUEtiapine FUMARATE 100 MG TABLET PO PRN (00:30)
[2020-04-22] MEDS ORDERED: LORazepam 2 MG TABLET PO PRN (00:30)
[2020-04-22] MEDS ORDERED: ZOLPIDEM TARTRATE 10 MG TABLET PO PRN (00:30)
[2020-04-22 01:10] LABS: AMPHET/METH SCREEN,URINE NEGATIVE (NEGATIVE); BARBITURATE SCREEN, URINE NEGATIVE (NEGATIVE); BENZODIAZEPINES SCREEN,URINE NEGATIVE (NEGATIVE); CANNABINOID SCREEN,URINE NEGATIVE (NEGATIVE); COCAINE SCREEN,URINE NEGATIVE (NEGATIVE); METHADONE SCREEN, URINE NEGATIVE (NEGATIVE); OPIATE SCREEN,URINE NEGATIVE (NEGATIVE)
[2020-04-22 01:23] LABS: PHENCYCLIDINE SCREEN,URINE NEGATIVE (NEGATIVE)
[2020-04-22] MEDS ORDERED: CloNIDine HCL 0.1 MG TABLET PO PRN (08:45)
[2020-04-22] MEDS ORDERED: ALBUTEROL SULFATE HFA 90 MCG/PUFF 8 GM INHALER IH PRN (08:45)
[2020-04-22] MEDS ORDERED: LOPERAMIDE HCL 2 MG CAPSULE PO PRN (08:45)
[2020-04-22] MEDS ORDERED: MAGNESIUM HYDROXIDE SUSPENSION 30 ML UDCUP PO PRN (08:45)
[2020-04-22] MEDS ORDERED: ACETAMINOPHEN 325 MG TABLET PO PRN (08:45)
[2020-04-22] MEDS ORDERED: NICOTINE 14 MG/24 HOUR PATCH TD PRN (08:45)
[2020-04-22] MEDS ORDERED: ONDANSETRON HCL 4 MG TABLET PO PRN (08:45)
[2020-04-22] MEDS ORDERED: GuaiFENesin/D-METHORPHAN [SUGAR-FREE] 200-20MG/10 ML SYRUP UDCUP PO PRN (08:45)
[2020-04-22] MEDS ORDERED: DOCUSATE SODIUM 100 MG CAPSULE PO PRN (08:45)
[2020-04-22] MEDS ORDERED: PETROLATUM,WHITE 28 GM JELLY TP PRN (08:45)
[2020-04-22] MEDS ORDERED: IBUPROFEN 400 MG TABLET PO PRN (08:45)
[2020-04-22] MEDS: FLUoxetine HCL 20 MG CAPSULE PO SCH (15:14)
[2020-04-22] MEDS: OLANZapine 10 MG TABLET PO SCH (20:17)
[2020-04-22] MEDS: MAG HYDROX/AL HYDROX/SIMETH ES 30 ML SUSPENSION UDCUP PO PRN (21:04)
[2020-04-23] MEDS: FLUoxetine HCL 20 MG CAPSULE PO SCH (09:01)
[2020-04-23] MEDS: MAG HYDROX/AL HYDROX/SIMETH ES 30 ML SUSPENSION UDCUP PO PRN (15:18)
[2020-04-23] MEDS: OLANZapine 10 MG TABLET PO SCH (20:11)
[2020-04-24 08:09] VITALS: BP 123/81
[2020-04-24] MEDS: FLUoxetine HCL 20 MG CAPSULE PO SCH (08:22)
[2020-04-24] MEDS: OLANZapine 10 MG TABLET PO SCH (20:18)
[2020-04-24] MEDS: MAG HYDROX/AL HYDROX/SIMETH ES 30 ML SUSPENSION UDCUP PO PRN (20:46)
[2020-04-25] MEDS: FLUoxetine HCL 20 MG CAPSULE PO SCH (08:11)
[2020-04-25 08:21] VITALS: BP 110/72
[2020-04-25] MEDS: MAG HYDROX/AL HYDROX/SIMETH ES 30 ML SUSPENSION UDCUP PO PRN (15:25)
[2020-04-25] MEDS: OLANZapine 10 MG TABLET PO SCH (20:21)
[2020-04-26 03:47] VITALS: BP 124/71
[2020-04-26] MEDS: FLUoxetine HCL 20 MG CAPSULE PO SCH (08:13)
[2020-04-26] MEDS: MAG HYDROX/AL HYDROX/SIMETH ES 30 ML SUSPENSION UDCUP PO PRN (18:28)
[2020-04-26] MEDS: OLANZapine 10 MG TABLET PO SCH (20:05)
[2020-04-27 00:05] VITALS: BP 115/71
[2020-04-27] MEDS: FLUoxetine HCL 20 MG CAPSULE PO SCH (08:33)
[2020-04-27 08:48] VITALS: BP 122/78
[2020-04-27] MEDS: MAG HYDROX/AL HYDROX/SIMETH ES 30 ML SUSPENSION UDCUP PO PRN (18:39)
[2020-04-27] MEDS: OLANZapine 10 MG TABLET PO SCH (20:58)
[2020-04-27] MEDS ORDERED: OMEPRAZOLE 20 MG CAPSULE PO PRN (22:00)
[2020-04-28] MEDS: FLUoxetine HCL 20 MG CAPSULE PO SCH (08:19)
[2020-04-28 14:54] VITALS: BP 128/74
[2020-04-28 16:20] VITALS: BP_SYST 117; BP_SYST 17; BP_DIAS 88
[2020-04-28] MEDS: OLANZapine 10 MG TABLET PO SCH (20:10)
[2020-04-29 02:00] VITALS: BP 120/76
[2020-04-29] MEDS: FLUoxetine HCL 20 MG CAPSULE PO SCH (08:34)
[2020-04-29 16:23] VITALS: BP 100/61
[2020-04-29] MEDS ORDERED: HALOPERIDOL LACTATE 5 MG/ML VIAL IM PRN (18:00)
[2020-04-29] MEDS: OLANZapine 10 MG TABLET PO SCH (19:59)
[2020-04-30 02:09] VITALS: BP 125/73
[2020-04-30] MEDS: FLUoxetine HCL 20 MG CAPSULE PO SCH (08:27)
[2020-04-30 17:12] VITALS: BP 110/73
[2020-04-30] MEDS: OLANZapine 10 MG TABLET PO SCH (20:31)
[2020-05-01 01:01] VITALS: BP 126/73
[2020-05-01] MEDS: FLUoxetine HCL 20 MG CAPSULE PO SCH (08:24)
[2020-05-01] MEDS ORDERED: FLUO-191 PO (09:44)
[2020-05-01] MEDS ORDERED: OLAN10TA20 PO (09:44)
== END 2020-05-01 13:20 | disposition home or self-care (01) | DRG 885 ==
LOC: EMS 22:38 → B2S 04-22 00:18
DX: F25.1 Schizoaffective disorder, depressive type (principal); R45.851 Suicidal ideations; K21.9 Gastro-esophageal reflux disease without esophagitis; E78.00 Pure hypercholesterolemia, unspecified; E78.5 Hyperlipidemia, unspecified; Z53.20 Procedure and treatment not carried out because of patient's decision for unspecified reasons; Z59.0 Homelessness; Z79.899 Other long term (current) drug therapy
CPT/HCPCS: 87081

== ENCOUNTER 2020-06-30 13:34 | Emergency (ER) | payer MEDICARE, OTHER ==
[~2020-06-30] VITALS: Ht 162.6 cm; Wt 100.0 kg
[~2020-06-30 13:34] MED LIST changes: +FLUO-191 PO; +OLAN10TA20 PO; -PALI1.5T PO
[2020-06-30 13:36] VITALS: BP 122/74
[2020-06-30] MEDS ORDERED: FLUCONAZOLE 150 MG TABLET PO ONE (16:15)
== END 2020-06-30 16:22 | disposition home or self-care (01) ==
LOC: EMS 13:36
DX: B37.3 Candidiasis of vulva and vagina (principal); Z79.899 Other long term (current) drug therapy

== ENCOUNTER 2020-07-11 23:15 | Emergency (ER) | payer MEDICARE, OTHER ==
[~2020-07-11] VITALS: Ht 162.6 cm; Wt 97.7 kg
[2020-07-11 23:56] LABS: BASOPHILS % (AUTO) 0.5 % (0.0-2.0); EOSINOPHILS % (AUTO) 4.8 % (1.0-6.0); HEMATOCRIT 42.1 % (36-46); HEMOGLOBIN 13.7 g/dL (12.0-16.0); LYMPHOCYTES # (AUTO) 3.4 K/uL (1.0-4.8); LYMPHOCYTES % (AUTO) 27.8 % (22.0-44.0); MEAN CORPUSCULAR HEMOGLOBIN 29.3 pg (26.0-34.0); MEAN CORPUSCULAR HGB CONC 32.5 G/dL (31.0-37.0); MEAN CORPUSCULAR VOLUME 90 fL (80-100); MONOCYTES # (AUTO) 1.1 K/uL (0.1-1.0); MONOCYTES % (AUTO) 9.1 % (2.0-9.0); NEUTROPHILS # (AUTO) 7.1 K/uL (1.8-7.7); NEUTROPHILS % (AUTO) 57.8 % (40.0-70.0); PLATELET COUNT (AUTO) 182 K/uL (150-450); RED BLOOD CELL COUNT(AUTO) 4.67 MIL/uL (4.00-5.20); RED CELL DISTRIBUTION WIDTH 13.1 % (11.5-14.5)
[2020-07-12 00:08] LABS: ANION GAP 8 mmol/L (8-16); CALCIUM, TOTAL 8.9 mg/dL (8.8-10.5); CARBON DIOXIDE 28 mmol/L (22-29); CHLORIDE 102 mmol/L (98-107); CREATININE 0.72 mg/dL (0.60-1.30); GLOMERULAR FILTR. RATE CALC > 60 mL/min (>60); GLUCOSE,RANDOM 105 mg/dL (70-110); SODIUM SERUM 138 mmol/L (136-145); UREA NITROGEN, BLOOD 13 mg/dL (7-18)
[2020-07-12 00:15] LABS: ALANINE AMINOTRANSFERASE 32 U/L (12-78); ALBUMIN 3.8 g/dL (3.4-5.0); ALKALINE PHOSPHATASE 82 U/L (46-116); ASPARTATE AMINOTRANSFERASE 17 U/L (15-37); BILIRUBIN,TOTAL 0.2 mg/dL (0.1-1.0)
[2020-07-12 00:30] VITALS: BP 129/73
[2020-07-12] MEDS ORDERED: MELATONIN 5 MG TABLET PO ONE (00:30)
== END 2020-07-12 02:23 | disposition home or self-care (01) ==
LOC: EMS 23:16
DX: G47.00 Insomnia, unspecified (principal)
CPT/HCPCS: 36415; 80053; 85025; 99283; G0480

== ENCOUNTER 2020-07-20 00:01 | Emergency (ER) | payer MEDICARE, OTHER ==
[~2020-07-20] VITALS: Ht 154.9 cm; Wt 95.9 kg
[2020-07-20 01:16] LABS: APPEARANCE,URINE CLOUDY (CLEAR); BILIRUBIN,URINE NEGATIVE (NEGATIVE); GLUCOSE, URINE (UA) NEGATIVE (NEGATIVE); KETONES,URINE NEGATIVE (NEGATIVE); LEUKOCYTE ESTERASE ,URINE NEGATIVE (NEGATIVE); NITRATE,URINE NEGATIVE (NEGATIVE); OCCULT BLOOD,URINE NEGATIVE (NEGATIVE); PH,URINE 7.5 (5.0-8.0); PROTEIN,URINE NEGATIVE (NEGATIVE); UROBILINOGEN,URINE 0.2 mg/dL (<=1.0)
[2020-07-20 01:25] LABS: BACTERIA,URINE Rare /HPF (None Seen); RBC,URINE None Seen /HPF (0-2); SQUAMOUS EPITHELIAL CELL,UR Rare /LPF (None Seen); WBC,URINE 0-2 /HPF (0-5)
[2020-07-20 01:29] LABS: BASOPHILS % (AUTO) 0.6 % (0.0-2.0); HEMATOCRIT 41.2 % (36-46); HEMOGLOBIN 13.9 g/dL (12.0-16.0); LYMPHOCYTES # (AUTO) 3.4 K/uL (1.0-4.8); LYMPHOCYTES % (AUTO) 26.1 % (22.0-44.0); MEAN CORPUSCULAR HEMOGLOBIN 30.3 pg (26.0-34.0); MEAN CORPUSCULAR HGB CONC 33.7 G/dL (31.0-37.0); MEAN CORPUSCULAR VOLUME 90 fL (80-100); MONOCYTES # (AUTO) 1.3 K/uL (0.1-1.0); MONOCYTES % (AUTO) 9.9 % (2.0-9.0); NEUTROPHILS # (AUTO) 7.7 K/uL (1.8-7.7); NEUTROPHILS % (AUTO) 59.4 % (40.0-70.0); PLATELET COUNT (AUTO) 198 K/uL (150-450); RED BLOOD CELL COUNT(AUTO) 4.58 MIL/uL (4.00-5.20); RED CELL DISTRIBUTION WIDTH 13.3 % (11.5-14.5)
[2020-07-20 01:41] LABS: ANION GAP 8 mmol/L (8-16); CALCIUM, TOTAL 9.7 mg/dL (8.8-10.5); CARBON DIOXIDE 28 mmol/L (22-29); CHLORIDE 103 mmol/L (98-107); CREATININE 0.74 mg/dL (0.60-1.30); GLOMERULAR FILTR. RATE CALC > 60 mL/min (>60); GLUCOSE,RANDOM 101 mg/dL (70-110); POTASSIUM 4.1 mmol/L (3.5-5.1); SODIUM SERUM 139 mmol/L (136-145); UREA NITROGEN, BLOOD 11 mg/dL (7-18)
[2020-07-20 01:55] LABS: ALANINE AMINOTRANSFERASE 26 U/L (12-78); ALKALINE PHOSPHATASE 85 U/L (46-116); ASPARTATE AMINOTRANSFERASE 13 U/L (15-37); BILIRUBIN,TOTAL 0.3 mg/dL (0.1-1.0); HCG,QUANTITATIVE < 1 mIU/mL (0-6); LIPASE 119 U/L (73-393); TOTAL PROTEIN, SERUM 6.9 g/dL (6.4-8.2)
[2020-07-20] MEDS ORDERED: DICYCLOMINE HCL 20 MG TABLET PO ONE (02:45)
[2020-07-20 03:03] VITALS: BP 97/60
== END 2020-07-20 03:00 | disposition home or self-care (01) ==
LOC: EMS 00:01
DX: R10.9 Unspecified abdominal pain (principal); F20.9 Schizophrenia, unspecified

== ENCOUNTER 2020-09-04 19:08 | Inpatient (IN) | payer MEDICARE, MEDICAID ==
[~2020-09-04] VITALS: Ht 154.9 cm; Wt 43.3 kg
[2020-09-04] MEDS ORDERED: OLANZapine 5 MG TABLET PO ONE (20:30)
[2020-09-04] MEDS ORDERED: LORazepam 1 MG TABLET PO ONE (20:30)
[2020-09-04 21:29] LABS: BASOPHILS % (AUTO) 0.6 % (0.0-2.0); EOSINOPHILS % (AUTO) 2.7 % (1.0-6.0); HEMATOCRIT 39.3 % (36-46); HEMOGLOBIN 13.1 g/dL (12.0-16.0); LYMPHOCYTES # (AUTO) 3.9 K/uL (1.0-4.8); LYMPHOCYTES % (AUTO) 24.8 % (22.0-44.0); MEAN CORPUSCULAR HGB CONC 33.3 G/dL (31.0-37.0); MEAN CORPUSCULAR VOLUME 90 fL (80-100); MONOCYTES # (AUTO) 1.5 K/uL (0.1-1.0); MONOCYTES % (AUTO) 9.4 % (2.0-9.0); NEUTROPHILS # (AUTO) 9.8 K/uL (1.8-7.7); NEUTROPHILS % (AUTO) 62.5 % (40.0-70.0); PLATELET COUNT (AUTO) 221 K/uL (150-450); RED BLOOD CELL COUNT(AUTO) 4.38 MIL/uL (4.00-5.20); RED CELL DISTRIBUTION WIDTH 14.4 % (11.5-14.5)
[2020-09-04 21:30] LABS: COVID AG,FIA SOURCE NASOPHARYNGEAL
[2020-09-04 21:39] LABS: ANION GAP 8 mmol/L (8-16); CALCIUM, TOTAL 8.2 mg/dL (8.8-10.5); CARBON DIOXIDE 26 mmol/L (22-29); CHLORIDE 105 mmol/L (98-107); GLOMERULAR FILTR. RATE CALC > 60 mL/min (>60); GLUCOSE,RANDOM 109 mg/dL (70-110); POTASSIUM 3.7 mmol/L (3.5-5.1); SODIUM SERUM 139 mmol/L (136-145); UREA NITROGEN, BLOOD 9 mg/dL (7-18)
[2020-09-04] MEDS ORDERED: MAGNESIUM HYDROXIDE SUSPENSION 30 ML UDCUP PO PRN (21:45)
[2020-09-04] MEDS ORDERED: LOPERAMIDE HCL 2 MG CAPSULE PO PRN (21:45)
[2020-09-04] MEDS ORDERED: CloNIDine HCL 0.1 MG TABLET PO PRN (21:45)
[2020-09-04] MEDS ORDERED: ALBUTEROL SULFATE HFA 90 MCG/PUFF 8 GM INHALER IH PRN (21:45)
[2020-09-04] MEDS ORDERED: DOCUSATE SODIUM 100 MG CAPSULE PO PRN (21:45)
[2020-09-04] MEDS ORDERED: NICOTINE 14 MG/24 HOUR PATCH TD PRN (21:45)
[2020-09-04] MEDS ORDERED: IBUPROFEN 400 MG TABLET PO PRN (21:45)
[2020-09-04] MEDS ORDERED: GuaiFENesin/D-METHORPHAN [SUGAR-FREE] 200-20MG/10 ML SYRUP UDCUP PO PRN (21:45)
[2020-09-04] MEDS ORDERED: ONDANSETRON HCL 4 MG TABLET PO PRN (21:45)
[2020-09-04] MEDS ORDERED: PETROLATUM,WHITE 28 GM JELLY TP PRN (21:45)
[2020-09-04] MEDS ORDERED: ACETAMINOPHEN 325 MG TABLET PO PRN (21:45)
[2020-09-04 21:51] LABS: ALANINE AMINOTRANSFERASE 22 U/L (12-78); ALBUMIN 3.3 g/dL (3.4-5.0); ALKALINE PHOSPHATASE 85 U/L (46-116); ASPARTATE AMINOTRANSFERASE 11 U/L (15-37); BILIRUBIN,TOTAL 0.2 mg/dL (0.1-1.0); HCG,QUANTITATIVE 1 mIU/mL (0-6)
[2020-09-04] MEDS ORDERED: HALOPERIDOL 5 MG TABLET PO PRN (22:45)
[2020-09-05 00:20] LABS: AMPHET/METH SCREEN,URINE NEGATIVE (NEGATIVE); BARBITURATE SCREEN, URINE NEGATIVE (NEGATIVE); BENZODIAZEPINES SCREEN,URINE NEGATIVE (NEGATIVE); CANNABINOID SCREEN,URINE NEGATIVE (NEGATIVE); COCAINE SCREEN,URINE NEGATIVE (NEGATIVE); METHADONE SCREEN, URINE NEGATIVE (NEGATIVE); OPIATE SCREEN,URINE NEGATIVE (NEGATIVE)
[2020-09-05 00:23] LABS: BILIRUBIN,URINE NEGATIVE (NEGATIVE); GLUCOSE, URINE (UA) NEGATIVE (NEGATIVE); KETONES,URINE NEGATIVE (NEGATIVE); LEUKOCYTE ESTERASE ,URINE NEGATIVE (NEGATIVE); NITRATE,URINE NEGATIVE (NEGATIVE); OCCULT BLOOD,URINE NEGATIVE (NEGATIVE); PH,URINE 6.5 (5.0-8.0); PROTEIN,URINE NEGATIVE (NEGATIVE); UROBILINOGEN,URINE 0.2 mg/dL (<=1.0)
[2020-09-05 00:24] LABS: PHENCYCLIDINE SCREEN,URINE NEGATIVE (NEGATIVE)
[2020-09-05 00:34] LABS: APPEARANCE,URINE CLEAR (CLEAR)
[2020-09-05 01:15] VITALS: BP 113/67
[2020-09-05 07:40] LABS: CHOL/HDL RATIO 4.3 (3.9-5.7); CHOLESTEROL 221 mg/dL (131-200); HDL CHOLESTEROL 52 mg/dL (40-60); TRIGLYCERIDES 418 mg/dL (15-150)
[2020-09-05 08:00] VITALS: BP 105/65
[2020-09-05 16:00] VITALS: BP 114/63
[2020-09-06 08:00] VITALS: BP 104/71
[2020-09-06 16:00] VITALS: BP 108/62
[2020-09-07 02:10] VITALS: BP 131/83
[2020-09-07] MEDS: MAG HYDROX/AL HYDROX/SIMETH ES 30 ML SUSPENSION UDCUP PO PRN (02:10)
[2020-09-07 09:34] VITALS: BP 123/78
[2020-09-07 16:05] VITALS: BP 95/57
[2020-09-07] MEDS: SIMVASTATIN 10 MG TABLET PO SCH (21:02)
[2020-09-08 01:00] VITALS: BP 128/78
[2020-09-08] MEDS: ZOLPIDEM TARTRATE 10 MG TABLET PO PRN (01:11)
[2020-09-08 06:46] LABS: BASOPHILS % (AUTO) 0.7 % (0.0-2.0); EOSINOPHILS % (AUTO) 3.8 % (1.0-6.0); HEMATOCRIT 40.5 % (36-46); HEMOGLOBIN 13.7 g/dL (12.0-16.0); LYMPHOCYTES # (AUTO) 3.5 K/uL (1.0-4.8); LYMPHOCYTES % (AUTO) 26.2 % (22.0-44.0); MEAN CORPUSCULAR HGB CONC 33.7 G/dL (31.0-37.0); MEAN CORPUSCULAR VOLUME 89 fL (80-100); MONOCYTES # (AUTO) 1.2 K/uL (0.1-1.0); MONOCYTES % (AUTO) 8.6 % (2.0-9.0); NEUTROPHILS # (AUTO) 8.1 K/uL (1.8-7.7); NEUTROPHILS % (AUTO) 60.7 % (40.0-70.0); PLATELET COUNT (AUTO) 205 K/uL (150-450); RED BLOOD CELL COUNT(AUTO) 4.55 MIL/uL (4.00-5.20); RED CELL DISTRIBUTION WIDTH 14.2 % (11.5-14.5)
[2020-09-08 08:00] VITALS: BP 96/59
[2020-09-08 16:00] VITALS: BP 111/84
[2020-09-08] MEDS: SIMVASTATIN 10 MG TABLET PO SCH (20:57)
[2020-09-09 00:35] VITALS: BP 122/86
[2020-09-09] MEDS: LORazepam 2 MG TABLET PO PRN (03:16)
[2020-09-09 08:00] VITALS: BP 128/67
[2020-09-09] MEDS ORDERED: QUEtiapine FUMARATE 100 MG TABLET PO PRN (08:30)
[2020-09-09 16:00] VITALS: BP 118/56
[2020-09-09] MEDS: LURASIDONE HCL 80 MG TABLET PO SCH (16:19)
[2020-09-09] MEDS: SIMVASTATIN 10 MG TABLET PO SCH (20:21)
[2020-09-10 09:59] VITALS: BP 128/88
[2020-09-10 16:28] VITALS: BP 120/76
[2020-09-10] MEDS: LURASIDONE HCL 80 MG TABLET PO SCH (16:46)
[2020-09-10] MEDS: LORazepam 2 MG TABLET PO PRN (19:07)
[2020-09-10] MEDS: SIMVASTATIN 10 MG TABLET PO SCH (20:24)
[2020-09-10 20:25] VITALS: BP 135/72
[2020-09-11 08:10] VITALS: BP 116/69
[2020-09-11] MEDS: LURASIDONE HCL 80 MG TABLET PO SCH (17:30)
[2020-09-11 18:11] VITALS: BP 141/83
[2020-09-11] MEDS: MAG HYDROX/AL HYDROX/SIMETH ES 30 ML SUSPENSION UDCUP PO PRN (19:14)
[2020-09-11] MEDS: SIMVASTATIN 10 MG TABLET PO SCH (20:17)
[2020-09-11] MEDS: LORazepam 2 MG TABLET PO PRN (20:18)
[2020-09-12 08:52] VITALS: BP 105/65
[2020-09-12 16:00] VITALS: BP 108/80
[2020-09-12] MEDS: LURASIDONE HCL 80 MG TABLET PO SCH (16:29)
[2020-09-12] MEDS: LORazepam 2 MG TABLET PO PRN (19:17)
[2020-09-12] MEDS: SIMVASTATIN 10 MG TABLET PO SCH (20:49)
[2020-09-13 08:37] VITALS: BP 107/57
[2020-09-13] MEDS: LURASIDONE HCL 80 MG TABLET PO SCH (17:07)
[2020-09-13] MEDS: SIMVASTATIN 10 MG TABLET PO SCH (20:38)
[2020-09-14 08:44] VITALS: BP 103/60
[2020-09-14 16:30] VITALS: BP 142/98
[2020-09-14] MEDS: LURASIDONE HCL 60 MG TABLET PO SCH (17:38)
[2020-09-14] MEDS: SIMVASTATIN 10 MG TABLET PO SCH (20:09)
[2020-09-14] MEDS: MAG HYDROX/AL HYDROX/SIMETH ES 30 ML SUSPENSION UDCUP PO PRN (21:55)
[2020-09-14] MEDS: LORazepam 2 MG TABLET PO PRN (22:14)
[2020-09-15 06:49] LABS: BASOPHILS % (AUTO) 0.5 % (0.0-2.0); EOSINOPHILS % (AUTO) 3.4 % (1.0-6.0); HEMATOCRIT 39.8 % (36-46); HEMOGLOBIN 13.3 g/dL (12.0-16.0); LYMPHOCYTES # (AUTO) 3.1 K/uL (1.0-4.8); LYMPHOCYTES % (AUTO) 23.4 % (22.0-44.0); MEAN CORPUSCULAR HEMOGLOBIN 29.9 pg (26.0-34.0); MEAN CORPUSCULAR HGB CONC 33.5 G/dL (31.0-37.0); MEAN CORPUSCULAR VOLUME 89 fL (80-100); MONOCYTES # (AUTO) 1.3 K/uL (0.1-1.0); MONOCYTES % (AUTO) 9.7 % (2.0-9.0); NEUTROPHILS # (AUTO) 8.3 K/uL (1.8-7.7); PLATELET COUNT (AUTO) 202 K/uL (150-450); RED BLOOD CELL COUNT(AUTO) 4.46 MIL/uL (4.00-5.20); RED CELL DISTRIBUTION WIDTH 14.2 % (11.5-14.5)
[2020-09-15 16:20] VITALS: BP 113/64
[2020-09-15] MEDS: LURASIDONE HCL 60 MG TABLET PO SCH (16:33)
[2020-09-15] MEDS: SIMVASTATIN 10 MG TABLET PO SCH (20:57)
[2020-09-16 08:15] VITALS: BP 115/68
[2020-09-16 16:57] VITALS: BP 116/73
[2020-09-16] MEDS: LURASIDONE HCL 60 MG TABLET PO SCH (17:28)
[2020-09-16] MEDS: MAG HYDROX/AL HYDROX/SIMETH ES 30 ML SUSPENSION UDCUP PO PRN (19:07)
[2020-09-16] MEDS: SIMVASTATIN 10 MG TABLET PO SCH (21:14)
[2020-09-17 08:30] VITALS: BP 110/68
[2020-09-17 16:19] VITALS: BP 140/86
[2020-09-17] MEDS: LURASIDONE HCL 60 MG TABLET PO SCH (16:32)
[2020-09-17] MEDS: MAG HYDROX/AL HYDROX/SIMETH ES 30 ML SUSPENSION UDCUP PO PRN (19:01)
[2020-09-17] MEDS: SIMVASTATIN 10 MG TABLET PO SCH (21:03)
[2020-09-18 09:09] VITALS: BP 113/74
[2020-09-18 16:34] VITALS: BP 109/73
[2020-09-18] MEDS: LURASIDONE HCL 60 MG TABLET PO SCH (16:54)
[2020-09-18 18:12] VITALS: BP 115/68
[2020-09-18] MEDS: SIMVASTATIN 10 MG TABLET PO SCH (20:12)
[2020-09-18] MEDS: MAG HYDROX/AL HYDROX/SIMETH ES 30 ML SUSPENSION UDCUP PO PRN (20:12)
[2020-09-19 08:31] VITALS: BP 133/75
[2020-09-19] MEDS: DIVALPROEX SODIUM 500 MG DR TABLET PO SCH ×2 (08:53→20:16)
[2020-09-19] MEDS: MAG HYDROX/AL HYDROX/SIMETH ES 30 ML SUSPENSION UDCUP PO PRN ×2 (08:55→20:50)
[2020-09-19 16:19] VITALS: BP 113/71
[2020-09-19] MEDS: LURASIDONE HCL 60 MG TABLET PO SCH (17:21)
[2020-09-19] MEDS: SIMVASTATIN 10 MG TABLET PO SCH (20:15)
[2020-09-19] MEDS: LORazepam 2 MG TABLET PO PRN (21:58)
[2020-09-20] MEDS: DIVALPROEX SODIUM 500 MG DR TABLET PO SCH ×2 (09:31→20:57)
[2020-09-20 12:05] LABS: COVID AG,FIA SOURCE NASOPHARYNGEAL
[2020-09-20 16:15] VITALS: BP 113/70
[2020-09-20 16:16] VITALS: BP 121/79
[2020-09-20] MEDS: LURASIDONE HCL 60 MG TABLET PO SCH (17:36)
[2020-09-20] MEDS: SIMVASTATIN 10 MG TABLET PO SCH (20:57)
[2020-09-21 08:00] VITALS: BP 92/52
[2020-09-21] MEDS: DIVALPROEX SODIUM 500 MG DR TABLET PO SCH ×2 (09:58→20:36)
[2020-09-21 16:09] VITALS: BP 71/105
[2020-09-21] MEDS: LURASIDONE HCL 60 MG TABLET PO SCH (16:47)
[2020-09-21] MEDS: SIMVASTATIN 10 MG TABLET PO SCH (20:37)
[2020-09-22] MEDS: DIVALPROEX SODIUM 500 MG DR TABLET PO SCH ×2 (08:44→20:07)
[2020-09-22 08:45] VITALS: BP 103/63
[2020-09-22 16:09] VITALS: BP 141/72
[2020-09-22] MEDS: LURASIDONE HCL 60 MG TABLET PO SCH (16:49)
[2020-09-22] MEDS: SIMVASTATIN 10 MG TABLET PO SCH (20:07)
[2020-09-23 08:47] VITALS: BP 105/64
[2020-09-23] MEDS: DIVALPROEX SODIUM 500 MG DR TABLET PO SCH ×2 (10:57→20:01)
[2020-09-23 16:15] VITALS: BP 103/76
[2020-09-23] MEDS: LURASIDONE HCL 60 MG TABLET PO SCH (17:30)
[2020-09-23] MEDS: SIMVASTATIN 10 MG TABLET PO SCH (20:01)
[2020-09-24] MEDS: ZOLPIDEM TARTRATE 10 MG TABLET PO PRN (00:44)
[2020-09-24 05:56] VITALS: BP 115/80
[2020-09-24 06:55] LABS: BASOPHILS % (AUTO) 0.4 % (0.0-2.0); HEMATOCRIT 39.8 % (36-46); HEMOGLOBIN 13.5 g/dL (12.0-16.0); LYMPHOCYTES # (AUTO) 3.7 K/uL (1.0-4.8); LYMPHOCYTES % (AUTO) 29.8 % (22.0-44.0); MEAN CORPUSCULAR HEMOGLOBIN 30.5 pg (26.0-34.0); MEAN CORPUSCULAR HGB CONC 33.9 G/dL (31.0-37.0); MEAN CORPUSCULAR VOLUME 90 fL (80-100); MONOCYTES # (AUTO) 1.1 K/uL (0.1-1.0); MONOCYTES % (AUTO) 9.1 % (2.0-9.0); NEUTROPHILS % (AUTO) 56.7 % (40.0-70.0); PLATELET COUNT (AUTO) 213 K/uL (150-450); RED BLOOD CELL COUNT(AUTO) 4.42 MIL/uL (4.00-5.20); RED CELL DISTRIBUTION WIDTH 14.5 % (11.5-14.5)
[2020-09-24 08:00] VITALS: BP 102/65
[2020-09-24] MEDS: DIVALPROEX SODIUM 500 MG DR TABLET PO SCH (10:00)
[2020-09-24] MEDS ORDERED: DIVA-112 PO (11:42)
[2020-09-24] MEDS ORDERED: LURA60TA PO (11:42)
[2020-09-24] MEDS ORDERED: SIMV-259 PO (12:29)
== END 2020-09-24 14:35 | disposition home or self-care (01) | DRG 885 ==
LOC: EMS 19:08 → 3EX 22:36
DX: F25.1 Schizoaffective disorder, depressive type (principal); Z68.1 Body mass index [BMI] 19.9 or less, adult; D72.829 Elevated white blood cell count, unspecified; E78.5 Hyperlipidemia, unspecified; E66.9 Obesity, unspecified; E78.00 Pure hypercholesterolemia, unspecified; K21.9 Gastro-esophageal reflux disease without esophagitis; Z79.899 Other long term (current) drug therapy; Z20.828 Contact with and (suspected) exposure to other viral communicable diseases
CPT/HCPCS: 87426; G0378; G0480

== ENCOUNTER 2020-11-05 00:38 | Emergency (ER) | payer MEDICARE, OTHER ==
[~2020-11-05] VITALS: Ht 154.9 cm; Wt 100.0 kg
[~2020-11-05 00:38] MED LIST changes: +DIVA-112 PO; -FLUO-191 PO; +LURA60TA PO; -OLAN10TA20 PO; +SIMV-259 PO
[2020-11-05 02:28] VITALS: BP 126/52
== END 2020-11-05 03:33 | disposition home or self-care (01) ==
LOC: EMS 00:40
DX: F20.9 Schizophrenia, unspecified (principal); E78.00 Pure hypercholesterolemia, unspecified; Z79.899 Other long term (current) drug therapy
CPT/HCPCS: 99284; Z7502

== ENCOUNTER 2020-11-16 13:52 | Emergency (ER) | payer MEDICARE, OTHER ==
[~2020-11-16] VITALS: Ht 154.9 cm; Wt 100.0 kg
[2020-11-16 14:50] VITALS: BP 125/68
== END 2020-11-16 14:55 | disposition home or self-care (01) ==
LOC: EMS 14:21
DX: L60.0 Ingrowing nail (principal); E78.00 Pure hypercholesterolemia, unspecified; F20.9 Schizophrenia, unspecified
CPT/HCPCS: 99281; Z7502

== ENCOUNTER 2020-12-15 00:47 | Emergency (ER) | payer MEDICARE, OTHER ==
[~2020-12-15] VITALS: Ht 154.9 cm; Wt 95.0 kg
[2020-12-15] MEDS ORDERED: QUEtiapine FUMARATE 100 MG TABLET PO ONE (01:30)
[2020-12-15 01:43] LABS: BASOPHILS % (AUTO) 0.8 % (0.0-2.0); EOSINOPHILS % (AUTO) 3.7 % (1.0-6.0); HEMATOCRIT 41.8 % (36-46); HEMOGLOBIN 13.9 g/dL (12.0-16.0); LYMPHOCYTES # (AUTO) 3.6 K/uL (1.0-4.8); LYMPHOCYTES % (AUTO) 30.4 % (22.0-44.0); MEAN CORPUSCULAR HEMOGLOBIN 31.3 pg (26.0-34.0); MEAN CORPUSCULAR HGB CONC 33.3 G/dL (31.0-37.0); MEAN CORPUSCULAR VOLUME 94 fL (80-100); MONOCYTES # (AUTO) 1.3 K/uL (0.1-1.0); MONOCYTES % (AUTO) 10.8 % (2.0-9.0); NEUTROPHILS # (AUTO) 6.5 K/uL (1.8-7.7); NEUTROPHILS % (AUTO) 54.3 % (40.0-70.0); PLATELET COUNT (AUTO) 180 K/uL (150-450); RED BLOOD CELL COUNT(AUTO) 4.45 MIL/uL (4.00-5.20); RED CELL DISTRIBUTION WIDTH 13.3 % (11.5-14.5)
[2020-12-15 01:52] LABS: AMPHET/METH SCREEN,URINE NEGATIVE (NEGATIVE); BARBITURATE SCREEN, URINE NEGATIVE (NEGATIVE); BENZODIAZEPINES SCREEN,URINE NEGATIVE (NEGATIVE); CANNABINOID SCREEN,URINE NEGATIVE (NEGATIVE); COCAINE SCREEN,URINE NEGATIVE (NEGATIVE); METHADONE SCREEN, URINE NEGATIVE (NEGATIVE); OPIATE SCREEN,URINE NEGATIVE (NEGATIVE)
[2020-12-15 01:54] LABS: ANION GAP 8 mmol/L (8-16); CALCIUM, TOTAL 8.8 mg/dL (8.8-10.5); CARBON DIOXIDE 29 mmol/L (22-29); CHLORIDE 105 mmol/L (98-107); CREATININE 0.68 mg/dL (0.60-1.30); GLOMERULAR FILTR. RATE CALC > 60 mL/min (>60); GLUCOSE,RANDOM 98 mg/dL (70-110); SODIUM SERUM 142 mmol/L (136-145); UREA NITROGEN, BLOOD 12 mg/dL (7-18)
[2020-12-15 01:58] LABS: PHENCYCLIDINE SCREEN,URINE NEGATIVE (NEGATIVE)
[2020-12-15 02:07] LABS: ALANINE AMINOTRANSFERASE 18 U/L (12-78); ALBUMIN 3.9 g/dL (3.4-5.0); ALKALINE PHOSPHATASE 67 U/L (46-116); ASPARTATE AMINOTRANSFERASE 8 U/L (15-37); BILIRUBIN,TOTAL 0.2 mg/dL (0.1-1.0); HCG,QUANTITATIVE < 1 mIU/mL (0-6); TOTAL PROTEIN, SERUM 7.6 g/dL (6.4-8.2); VALPROIC ACID 47 mcg/mL (50-100)
[2020-12-15 02:51] VITALS: BP 110/69
== END 2020-12-15 03:30 | disposition home or self-care (01) ==
LOC: EMS 00:48
DX: F20.9 Schizophrenia, unspecified (principal); E78.00 Pure hypercholesterolemia, unspecified
CPT/HCPCS: 36415; 80053; 80164; 80307; 84702; 85025; 99284; G0480

== ENCOUNTER 2020-12-27 00:59 | Emergency (ER) | payer MEDICARE, OTHER ==
[2020-12-27 04:08] VITALS: BP 122/85
== END 2020-12-27 04:51 | disposition home or self-care (01) ==
LOC: EMS 01:04
DX: F25.9 Schizoaffective disorder, unspecified (principal); F31.9 Bipolar disorder, unspecified; E78.00 Pure hypercholesterolemia, unspecified
CPT/HCPCS: 99284; Z7502

== ENCOUNTER 2021-01-16 23:02 | Emergency (ER) | payer MEDICARE, OTHER ==
[~2021-01-16] VITALS: Ht 160 cm; Wt 101.4 kg
[2021-01-16] MEDS ORDERED: RISP1TAB48 PO (23:15)
[2021-01-16] MEDS ORDERED: TRAZ150 PO (23:15)
[2021-01-16 23:47] LABS: APPEARANCE,URINE CLEAR (CLEAR); BILIRUBIN,URINE NEGATIVE (NEGATIVE); GLUCOSE, URINE (UA) NEGATIVE (NEGATIVE); KETONES,URINE NEGATIVE (NEGATIVE); LEUKOCYTE ESTERASE ,URINE NEGATIVE (NEGATIVE); NITRATE,URINE NEGATIVE (NEGATIVE); OCCULT BLOOD,URINE NEGATIVE (NEGATIVE); PH,URINE 6.5 (5.0-8.0); PROTEIN,URINE NEGATIVE (NEGATIVE); UROBILINOGEN,URINE 0.2 mg/dL (<=1.0)
[2021-01-16 23:50] LABS: BASOPHILS % (AUTO) 0.7 % (0.0-2.0); EOSINOPHILS % (AUTO) 2.7 % (1.0-6.0); HEMATOCRIT 38.8 % (36-46); HEMOGLOBIN 12.8 g/dL (12.0-16.0); LYMPHOCYTES # (AUTO) 3.3 K/uL (1.0-4.8); MEAN CORPUSCULAR HGB CONC 32.9 G/dL (31.0-37.0); MEAN CORPUSCULAR VOLUME 94 fL (80-100); MONOCYTES # (AUTO) 1.2 K/uL (0.1-1.0); MONOCYTES % (AUTO) 9.1 % (2.0-9.0); NEUTROPHILS # (AUTO) 8.3 K/uL (1.8-7.7); NEUTROPHILS % (AUTO) 62.5 % (40.0-70.0); PLATELET COUNT (AUTO) 237 K/uL (150-450); RED BLOOD CELL COUNT(AUTO) 4.11 MIL/uL (4.00-5.20); RED CELL DISTRIBUTION WIDTH 13.1 % (11.5-14.5)
[2021-01-16 23:52] LABS: AMPHET/METH SCREEN,URINE NEGATIVE (NEGATIVE); BARBITURATE SCREEN, URINE NEGATIVE (NEGATIVE); BENZODIAZEPINES SCREEN,URINE NEGATIVE (NEGATIVE); CANNABINOID SCREEN,URINE NEGATIVE (NEGATIVE); COCAINE SCREEN,URINE NEGATIVE (NEGATIVE); METHADONE SCREEN, URINE NEGATIVE (NEGATIVE); OPIATE SCREEN,URINE NEGATIVE (NEGATIVE); PHENCYCLIDINE SCREEN,URINE NEGATIVE (NEGATIVE)
[2021-01-17] LABS: ANION GAP 10 mmol/L (8-16); CALCIUM, TOTAL 8.9 mg/dL (8.8-10.5); CARBON DIOXIDE 25 mmol/L (22-29); CHLORIDE 103 mmol/L (98-107); CREATININE 0.56 mg/dL (0.60-1.30); GLOMERULAR FILTR. RATE CALC > 60 mL/min (>60); GLUCOSE,RANDOM 92 mg/dL (70-110); POTASSIUM 4.1 mmol/L (3.5-5.1); SODIUM SERUM 138 mmol/L (136-145); UREA NITROGEN, BLOOD 11 mg/dL (7-18)
[2021-01-17 00:04] LABS: BACTERIA,URINE Rare /HPF (None Seen); RBC,URINE 0-2 /HPF (0-2); SQUAMOUS EPITHELIAL CELL,UR Moderate /LPF (None Seen); WBC,URINE 0-2 /HPF (0-5)
[2021-01-17 00:11] LABS: ALANINE AMINOTRANSFERASE 39 U/L (12-78); ALBUMIN 3.9 g/dL (3.4-5.0); ALKALINE PHOSPHATASE 82 U/L (46-116); ASPARTATE AMINOTRANSFERASE 14 U/L (15-37); BILIRUBIN,TOTAL 0.2 mg/dL (0.1-1.0); HCG,QUANTITATIVE < 1 mIU/mL (0-6); TOTAL PROTEIN, SERUM 7.4 g/dL (6.4-8.2)
[2021-01-17 00:45] VITALS: BP 106/57
== END 2021-01-17 01:36 | disposition home or self-care (01) ==
LOC: EMS 23:05
DX: F20.9 Schizophrenia, unspecified (principal); M54.5 Low back pain; E78.00 Pure hypercholesterolemia, unspecified; Z79.899 Other long term (current) drug therapy
CPT/HCPCS: 36415; 80053; 80307; 81001; 84702; 85025; 99284; G0480

== ENCOUNTER 2021-01-22 03:39 | Emergency (ER) | payer MEDICARE, OTHER ==
[~2021-01-22] VITALS: Ht 157.5 cm; Wt 100.9 kg
[~2021-01-22 03:39] MED LIST changes: +RISP1TAB48 PO; +TRAZ150 PO
[2021-01-22 05:55] VITALS: BP 120/72
== END 2021-01-22 05:55 | disposition home or self-care (01) ==
LOC: EMS 03:41
DX: F20.9 Schizophrenia, unspecified (principal); R10.9 Unspecified abdominal pain; E78.00 Pure hypercholesterolemia, unspecified
CPT/HCPCS: 99283; Z7502

== ENCOUNTER 2021-04-09 17:50 | Emergency (ER) | payer MEDICARE, OTHER ==
[~2021-04-09] VITALS: Ht 157.5 cm; Wt 100.0 kg
[2021-04-09] MEDS ORDERED: LORazepam 1 MG TABLET PO ONE (19:00)
[2021-04-09 19:52] LABS: AMPHET/METH SCREEN,URINE NEGATIVE (NEGATIVE); BARBITURATE SCREEN, URINE NEGATIVE (NEGATIVE); BENZODIAZEPINES SCREEN,URINE NEGATIVE (NEGATIVE); CANNABINOID SCREEN,URINE NEGATIVE (NEGATIVE); COCAINE SCREEN,URINE NEGATIVE (NEGATIVE); METHADONE SCREEN, URINE NEGATIVE (NEGATIVE); OPIATE SCREEN,URINE NEGATIVE (NEGATIVE); PHENCYCLIDINE SCREEN,URINE NEGATIVE (NEGATIVE)
[2021-04-09 20:11] LABS: BASOPHILS % (AUTO) 0.6 % (0.0-2.0); EOSINOPHILS % (AUTO) 3.8 % (1.0-6.0); HEMATOCRIT 39.1 % (36-46); LYMPHOCYTES # (AUTO) 3.8 K/uL (1.0-4.8); LYMPHOCYTES % (AUTO) 28.2 % (22.0-44.0); MEAN CORPUSCULAR HEMOGLOBIN 30.3 pg (26.0-34.0); MEAN CORPUSCULAR HGB CONC 33.3 G/dL (31.0-37.0); MEAN CORPUSCULAR VOLUME 91 fL (80-100); MONOCYTES # (AUTO) 1.2 K/uL (0.1-1.0); MONOCYTES % (AUTO) 9.2 % (2.0-9.0); NEUTROPHILS # (AUTO) 7.8 K/uL (1.8-7.7); NEUTROPHILS % (AUTO) 58.2 % (40.0-70.0); PLATELET COUNT (AUTO) 203 K/uL (150-450); RED CELL DISTRIBUTION WIDTH 12.9 % (11.5-14.5)
[2021-04-09 20:22] LABS: ANION GAP 8 mmol/L (8-16); CALCIUM, TOTAL 8.4 mg/dL (8.8-10.5); CARBON DIOXIDE 27 mmol/L (22-29); CHLORIDE 103 mmol/L (98-107); CREATININE 0.55 mg/dL (0.60-1.30); GLOMERULAR FILTR. RATE CALC > 60 mL/min (>60); GLUCOSE,RANDOM 117 mg/dL (70-110); POTASSIUM 3.6 mmol/L (3.5-5.1); SODIUM SERUM 138 mmol/L (136-145); UREA NITROGEN, BLOOD 10 mg/dL (7-18)
[2021-04-09 20:29] LABS: ALANINE AMINOTRANSFERASE 29 U/L (12-78); ALBUMIN 3.5 g/dL (3.4-5.0); ALKALINE PHOSPHATASE 90 U/L (46-116); ASPARTATE AMINOTRANSFERASE 17 U/L (15-37); BILIRUBIN,TOTAL 0.2 mg/dL (0.1-1.0); TOTAL PROTEIN, SERUM 7.1 g/dL (6.4-8.2)
[2021-04-09 22:49] VITALS: BP 115/65
== END 2021-04-09 22:50 | disposition home or self-care (01) ==
LOC: EMS 17:52
DX: F25.1 Schizoaffective disorder, depressive type (principal); E78.00 Pure hypercholesterolemia, unspecified
CPT/HCPCS: 36415; 80053; 80307; 85025; 99284; G0480

== ENCOUNTER 2021-04-11 17:19 | Emergency (ER) | payer MEDICARE, OTHER ==
[~2021-04-11] VITALS: Ht 157.5 cm; Wt 100.0 kg
[2021-04-11] MEDS ORDERED: HALOPERIDOL 5 MG TABLET PO ONE (18:15)
[2021-04-11 18:25] LABS: AMPHET/METH SCREEN,URINE NEGATIVE (NEGATIVE); BARBITURATE SCREEN, URINE NEGATIVE (NEGATIVE); BENZODIAZEPINES SCREEN,URINE NEGATIVE (NEGATIVE); CANNABINOID SCREEN,URINE NEGATIVE (NEGATIVE); COCAINE SCREEN,URINE NEGATIVE (NEGATIVE); METHADONE SCREEN, URINE NEGATIVE (NEGATIVE); OPIATE SCREEN,URINE NEGATIVE (NEGATIVE)
[2021-04-11 18:28] LABS: BASOPHILS % (AUTO) 0.7 % (0.0-2.0); EOSINOPHILS % (AUTO) 2.8 % (1.0-6.0); HEMATOCRIT 38.6 % (36-46); HEMOGLOBIN 12.7 g/dL (12.0-16.0); LYMPHOCYTES # (AUTO) 3.2 K/uL (1.0-4.8); LYMPHOCYTES % (AUTO) 23.4 % (22.0-44.0); MEAN CORPUSCULAR HEMOGLOBIN 29.9 pg (26.0-34.0); MEAN CORPUSCULAR HGB CONC 32.9 G/dL (31.0-37.0); MEAN CORPUSCULAR VOLUME 91 fL (80-100); MONOCYTES # (AUTO) 1.2 K/uL (0.1-1.0); MONOCYTES % (AUTO) 9.2 % (2.0-9.0); NEUTROPHILS # (AUTO) 8.6 K/uL (1.8-7.7); NEUTROPHILS % (AUTO) 63.9 % (40.0-70.0); PLATELET COUNT (AUTO) 212 K/uL (150-450); RED BLOOD CELL COUNT(AUTO) 4.25 MIL/uL (4.00-5.20)
[2021-04-11 18:32] LABS: PHENCYCLIDINE SCREEN,URINE NEGATIVE (NEGATIVE)
[2021-04-11 18:36] LABS: ANION GAP 8 mmol/L (8-16); CALCIUM, TOTAL 8.5 mg/dL (8.8-10.5); CARBON DIOXIDE 26 mmol/L (22-29); CHLORIDE 104 mmol/L (98-107); GLOMERULAR FILTR. RATE CALC > 60 mL/min (>60); GLUCOSE,RANDOM 98 mg/dL (70-110); POTASSIUM 3.7 mmol/L (3.5-5.1); SODIUM SERUM 138 mmol/L (136-145); UREA NITROGEN, BLOOD 10 mg/dL (7-18)
[2021-04-11 18:42] LABS: ALANINE AMINOTRANSFERASE 33 U/L (12-78); ALBUMIN 3.5 g/dL (3.4-5.0); ALKALINE PHOSPHATASE 92 U/L (46-116); ASPARTATE AMINOTRANSFERASE 16 U/L (15-37); BILIRUBIN,TOTAL 0.2 mg/dL (0.1-1.0); VALPROIC ACID < 3 mcg/mL (50-100)
[2021-04-11 19:58] VITALS: BP 124/77
== END 2021-04-11 20:26 | disposition home or self-care (01) ==
LOC: EMS 17:21
DX: F25.0 Schizoaffective disorder, bipolar type (principal); E78.00 Pure hypercholesterolemia, unspecified; Z79.899 Other long term (current) drug therapy
CPT/HCPCS: 36415; 80053; 80164; 80307; 85025; 99284; G0480

== ENCOUNTER 2021-07-30 16:43 | Emergency (ER) | payer MEDICARE, OTHER ==
[~2021-07-30] VITALS: Ht 157.5 cm; Wt 104.1 kg
[~2021-07-30 16:43] MED LIST changes: -TRAZ150 PO; +TRAZ150T80 PO
[2021-07-30 17:17] VITALS: BP 101/71
== END 2021-07-30 19:33 | disposition home or self-care (01) ==
LOC: EMS 19:28
DX: R05.9 Cough, unspecified (principal); R09.81 Nasal congestion; Z20.822 Contact with and (suspected) exposure to COVID-19
CPT/HCPCS: 99283; U0003

== ENCOUNTER 2021-08-30 15:22 | Emergency (ER) | payer MEDICARE, OTHER ==
[~2021-08-30] VITALS: Ht 157.5 cm; Wt 104.1 kg
[2021-08-30 15:25] VITALS: BP 116/72
[2021-08-30] MEDS ORDERED: ONDANSETRON HCL 4 MG TABLET PO ONE (16:45)
[2021-08-30] MEDS ORDERED: ACETAMINOPHEN 500 MG TABLET PO ONE (16:45)
[2021-08-30] MEDS ORDERED: SULFAMETHOX/TRIMETH DS 800-160 MG/TABLET PO ONE (16:45)
== END 2021-08-30 17:56 | disposition home or self-care (01) ==
LOC: EMS 15:26
DX: K52.9 Noninfective gastroenteritis and colitis, unspecified (principal); F25.9 Schizoaffective disorder, unspecified; F31.9 Bipolar disorder, unspecified; E78.00 Pure hypercholesterolemia, unspecified; K76.9 Liver disease, unspecified
CPT/HCPCS: 99284; Q0162

== ENCOUNTER 2021-09-23 03:53 | Emergency (ER) | payer MEDICARE, OTHER ==
[~2021-09-23] VITALS: Ht 157.5 cm; Wt 102.2 kg
[2021-09-23 04:11] VITALS: BP 127/76
== END 2021-09-23 05:50 | disposition home or self-care (01) ==
LOC: EMS 03:53
DX: R07.81 Pleurodynia (principal); E78.00 Pure hypercholesterolemia, unspecified; K76.9 Liver disease, unspecified; F20.9 Schizophrenia, unspecified
CPT/HCPCS: 99282; 99283

== ENCOUNTER 2021-10-05 16:36 | Emergency (ER) | payer MEDICARE, OTHER ==
[~2021-10-05] VITALS: Ht 157.5 cm; Wt 101.4 kg
[2021-10-05 18:10] LABS: BASOPHILS % (AUTO) 0.5 % (0.0-2.0); EOSINOPHILS % (AUTO) 2.9 % (1.0-6.0); HEMATOCRIT 38.6 % (36-46); HEMOGLOBIN 13.1 g/dL (12.0-16.0); LYMPHOCYTES # (AUTO) 3.5 K/uL (1.0-4.8); LYMPHOCYTES % (AUTO) 28.6 % (22.0-44.0); MEAN CORPUSCULAR HEMOGLOBIN 30.2 pg (26.0-34.0); MEAN CORPUSCULAR HGB CONC 33.9 G/dL (31.0-37.0); MEAN CORPUSCULAR VOLUME 89 fL (80-100); MONOCYTES # (AUTO) 1.1 K/uL (0.1-1.0); MONOCYTES % (AUTO) 8.6 % (2.0-9.0); NEUTROPHILS # (AUTO) 7.3 K/uL (1.8-7.7); NEUTROPHILS % (AUTO) 59.4 % (40.0-70.0); PLATELET COUNT (AUTO) 230 K/uL (150-450); RED BLOOD CELL COUNT(AUTO) 4.33 MIL/uL (4.00-5.20); RED CELL DISTRIBUTION WIDTH 13.5 % (11.5-14.5)
[2021-10-05 18:17] LABS: ANION GAP 9 mmol/L (8-16); CALCIUM, TOTAL 8.9 mg/dL (8.8-10.5); CARBON DIOXIDE 24 mmol/L (22-29); CHLORIDE 107 mmol/L (98-107); CREATININE 0.79 mg/dL (0.60-1.30); GLOMERULAR FILTR. RATE CALC > 60 mL/min (>60); GLUCOSE,RANDOM 102 mg/dL (70-110); POTASSIUM 3.8 mmol/L (3.5-5.1); SODIUM SERUM 140 mmol/L (136-145); UREA NITROGEN, BLOOD 12 mg/dL (7-18)
[2021-10-05 18:43] LABS: CREATINE KINASE, TOTAL ONLY 84 U/L (26-192); HCG,QUANTITATIVE < 1 mIU/mL (0-6)
[2021-10-05 19:17] LABS: COVID AG,FIA SOURCE NASOPHARYNGEAL
[2021-10-05 21:57] VITALS: BP 111/65
== END 2021-10-05 22:25 | disposition home or self-care (01) ==
LOC: EMS 16:42
DX: R07.89 Other chest pain (principal); F25.0 Schizoaffective disorder, bipolar type; Z20.822 Contact with and (suspected) exposure to COVID-19; Z79.899 Other long term (current) drug therapy
CPT/HCPCS: 36415; 71045; 80048; 82550; 84484; 84702; 85025; 87426; 93005; 99285; U0003

== ENCOUNTER 2022-01-05 13:58 | Emergency (ER) | payer MEDICARE, OTHER ==
[~2022-01-05] VITALS: Ht 157.5 cm; Wt 100.0 kg
[2022-01-05 14:09] VITALS: BP 128/67
== END 2022-01-05 17:02 | disposition home or self-care (01) ==
LOC: EMS 14:04
DX: R51.9 Headache, unspecified (principal); F25.9 Schizoaffective disorder, unspecified; E78.00 Pure hypercholesterolemia, unspecified; Z79.899 Other long term (current) drug therapy
CPT/HCPCS: 99281; Z7502

== ENCOUNTER 2022-03-19 | Emergency (ER) | payer MEDICARE, OTHER ==
[~2022-03-19] VITALS: Ht 157.5 cm; Wt 90.9 kg
[2022-03-19 00:09] VITALS: BP 109/78
[2022-03-19] MEDS ORDERED: LORATADINE 10 MG TABLET PO ONE (03:45)
== END 2022-03-19 06:33 | disposition home or self-care (01) ==
LOC: EMS 00:03
DX: T78.1XXA Other adverse food reactions, not elsewhere classified, initial encounter (principal); E78.00 Pure hypercholesterolemia, unspecified; F20.9 Schizophrenia, unspecified; K76.0 Fatty (change of) liver, not elsewhere classified; X58.XXXA Exposure to other specified factors, initial encounter
CPT/HCPCS: 99282; Z7502; Z7610

== ENCOUNTER 2022-08-13 20:17 | Emergency (ER) | payer MEDICARE, OTHER ==
[~2022-08-13] VITALS: Ht 165.1 cm; Wt 75.0 kg
[2022-08-13 20:43] LABS: BASOPHILS % (AUTO) 0.5 % (0.0-2.0); EOSINOPHILS % (AUTO) 2.1 % (1.0-6.0); HEMATOCRIT 39.1 % (36-46); HEMOGLOBIN 12.8 g/dL (12.0-16.0); LYMPHOCYTES # (AUTO) 2.6 K/uL (1.0-4.8); LYMPHOCYTES % (AUTO) 21.9 % (22.0-44.0); MEAN CORPUSCULAR HGB CONC 32.9 G/dL (31.0-37.0); MEAN CORPUSCULAR VOLUME 88 fL (80-100); MONOCYTES # (AUTO) 1.6 K/uL (0.1-1.0); NEUTROPHILS # (AUTO) 7.5 K/uL (1.8-7.7); NEUTROPHILS % (AUTO) 62.5 % (40.0-70.0); PLATELET COUNT (AUTO) 215 K/uL (150-450); RED BLOOD CELL COUNT(AUTO) 4.43 MIL/uL (4.00-5.20); RED CELL DISTRIBUTION WIDTH 13.8 % (11.5-14.5)
[2022-08-13] MEDS ORDERED: SODIUM CHLORIDE 0.9% 1,000 ML IV ONE (20:45)
[2022-08-13 20:51] LABS: ANION GAP 5 mmol/L (8-16); CALCIUM, TOTAL 8.6 mg/dL (8.8-10.5); CARBON DIOXIDE 28 mmol/L (22-29); CHLORIDE 103 mmol/L (98-107); CREATININE 0.82 mg/dL (0.60-1.30); GLOMERULAR FILTR. RATE CALC > 60 mL/min (>60); GLUCOSE,RANDOM 107 mg/dL (70-110); POTASSIUM 3.6 mmol/L (3.5-5.1); SODIUM SERUM 136 mmol/L (136-145); UREA NITROGEN, BLOOD 12 mg/dL (7-18)
[2022-08-13 21:07] LABS: ALANINE AMINOTRANSFERASE 34 U/L (12-78); ALBUMIN 3.4 g/dL (3.4-5.0); ALKALINE PHOSPHATASE 90 U/L (46-116); ASPARTATE AMINOTRANSFERASE 21 U/L (15-37); BILIRUBIN,TOTAL 0.2 mg/dL (0.1-1.0); HCG,QUANTITATIVE < 1 mIU/mL (0-6); LIPASE 144 U/L (73-393); TOTAL PROTEIN, SERUM 7.2 g/dL (6.4-8.2)
[2022-08-13 22:10] LABS: APPEARANCE,URINE CLEAR (CLEAR); BILIRUBIN,URINE NEGATIVE (NEGATIVE); GLUCOSE, URINE (UA) NEGATIVE (NEGATIVE); KETONES,URINE NEGATIVE (NEGATIVE); LEUKOCYTE ESTERASE ,URINE NEGATIVE (NEGATIVE); NITRATE,URINE NEGATIVE (NEGATIVE); OCCULT BLOOD,URINE NEGATIVE (NEGATIVE); PH,URINE 6.5 (5.0-8.0); PROTEIN,URINE NEGATIVE (NEGATIVE); SPECIFIC GRAVITIY, URINE 1.008 (1.003-1.030); UROBILINOGEN,URINE <=1.0 mg/dL (<=1.0)
[2022-08-14] VITALS: BP 133/71
== END 2022-08-14 02:32 | disposition home or self-care (01) ==
LOC: EMS 20:17
DX: K52.9 Noninfective gastroenteritis and colitis, unspecified (principal); E78.00 Pure hypercholesterolemia, unspecified; F20.9 Schizophrenia, unspecified; K76.0 Fatty (change of) liver, not elsewhere classified
CPT/HCPCS: 99284; 96360; 80053; 81003; 83690; 84702; 85025; 36415; 74018; J7030

== ENCOUNTER 2022-12-30 15:57 | Inpatient (IN) | payer MEDICARE, MEDICAID ==
[~2022-12-30] VITALS: Ht 157.5 cm; Wt 103.3 kg
[2022-12-30] MEDS ORDERED: PALI117D IM (16:13)
[2022-12-30 18:38] LABS: BASOPHILS % (AUTO) 0.7 % (0.0-2.0); EOSINOPHILS % (AUTO) 3.3 % (1.0-6.0); HEMOGLOBIN 13.5 g/dL (12.0-16.0); LYMPHOCYTES # (AUTO) 2.7 K/uL (1.0-4.8); LYMPHOCYTES % (AUTO) 20.8 % (22.0-44.0); MEAN CORPUSCULAR HEMOGLOBIN 29.6 pg (26.0-34.0); MEAN CORPUSCULAR VOLUME 90 fL (80-100); MONOCYTES # (AUTO) 1.2 K/uL (0.1-1.0); MONOCYTES % (AUTO) 9.6 % (2.0-9.0); NEUTROPHILS # (AUTO) 8.5 K/uL (1.8-7.7); NEUTROPHILS % (AUTO) 65.6 % (40.0-70.0); PLATELET COUNT (AUTO) 191 K/uL (150-450); RED BLOOD CELL COUNT(AUTO) 4.58 MIL/uL (4.00-5.20); RED CELL DISTRIBUTION WIDTH 13.7 % (11.5-14.5)
[2022-12-30 18:52] LABS: AMPHET/METH SCREEN,URINE NEGATIVE (NEGATIVE); BARBITURATE SCREEN, URINE NEGATIVE (NEGATIVE); BENZODIAZEPINES SCREEN,URINE NEGATIVE (NEGATIVE); CANNABINOID SCREEN,URINE NEGATIVE (NEGATIVE); COCAINE SCREEN,URINE NEGATIVE (NEGATIVE); METHADONE SCREEN, URINE NEGATIVE (NEGATIVE); OPIATE SCREEN,URINE NEGATIVE (NEGATIVE); PHENCYCLIDINE SCREEN,URINE NEGATIVE (NEGATIVE)
[2022-12-30 19:16] LABS: ANION GAP 9 mmol/L (8-16); CALCIUM, TOTAL 9.2 mg/dL (8.8-10.5); CARBON DIOXIDE 28 mmol/L (22-29); CHLORIDE 104 mmol/L (98-107); GLOMERULAR FILTR. RATE CALC > 60 mL/min (>60); GLUCOSE,RANDOM 97 mg/dL (70-110); SODIUM SERUM 141 mmol/L (136-145); UREA NITROGEN, BLOOD 8 mg/dL (7-18)
[2022-12-30 19:26] LABS: ALANINE AMINOTRANSFERASE 23 U/L (12-78); ALBUMIN 4.2 g/dL (3.4-5.0); ALKALINE PHOSPHATASE 83 U/L (46-116); ASPARTATE AMINOTRANSFERASE 16 U/L (15-37); BILIRUBIN,TOTAL 0.3 mg/dL (0.1-1.0); TOTAL PROTEIN, SERUM 7.9 g/dL (6.4-8.2)
[2022-12-30] MEDS ORDERED: FLUP25VI5 IM (21:10)
[2022-12-30] MEDS ORDERED: TRAZ-257 PO (21:10)
[2022-12-30] MEDS ORDERED: TRIH5TAB3 PO (21:10)
[2022-12-30] MEDS ORDERED: LUMA42CA PO (21:10)
[2022-12-30] MEDS ORDERED: VALB40CA2 PO (21:10)
[2022-12-30] MEDS ORDERED: PALI234D IM (21:10)
[2022-12-30] MEDS ORDERED: HALOPERIDOL 5 MG TABLET PO PRN (21:15)
[2022-12-30] MEDS ORDERED: LORazepam 2 MG TABLET PO PRN (21:15)
[2022-12-30 22:16] LABS: COVID AG,FIA SOURCE NASAL SWAB
[2022-12-30 22:51] LABS: APPEARANCE,URINE CLEAR (CLEAR); BILIRUBIN,URINE NEGATIVE (NEGATIVE); GLUCOSE, URINE (UA) NEGATIVE (NEGATIVE); KETONES,URINE NEGATIVE (NEGATIVE); LEUKOCYTE ESTERASE ,URINE NEGATIVE (NEGATIVE); NITRATE,URINE NEGATIVE (NEGATIVE); OCCULT BLOOD,URINE NEGATIVE (NEGATIVE); PROTEIN,URINE TRACE mg/dL (NEGATIVE); UROBILINOGEN,URINE <=1.0 mg/dL (<=1.0)
[2022-12-30 22:55] LABS: AMPHET/METH SCREEN,URINE NEGATIVE (NEGATIVE); BARBITURATE SCREEN, URINE NEGATIVE (NEGATIVE); BENZODIAZEPINES SCREEN,URINE NEGATIVE (NEGATIVE); CANNABINOID SCREEN,URINE NEGATIVE (NEGATIVE); COCAINE SCREEN,URINE NEGATIVE (NEGATIVE); METHADONE SCREEN, URINE NEGATIVE (NEGATIVE); OPIATE SCREEN,URINE NEGATIVE (NEGATIVE); PHENCYCLIDINE SCREEN,URINE NEGATIVE (NEGATIVE)
[2022-12-31 01:32] VITALS: BP 114/79
[2022-12-31] MEDS: ZOLPIDEM TARTRATE 10 MG TABLET PO PRN ×2 (01:57→21:16)
[2022-12-31] MEDS ORDERED: PETROLATUM,WHITE 28 GM JELLY TP PRN (07:45)
[2022-12-31] MEDS ORDERED: DOCUSATE SODIUM 100 MG CAPSULE PO PRN (07:45)
[2022-12-31] MEDS ORDERED: CloNIDine HCL 0.1 MG TABLET PO PRN (07:45)
[2022-12-31] MEDS ORDERED: MAG HYDROX/AL HYDROX/SIMETH ES 30 ML SUSPENSION UDCUP PO PRN (07:45)
[2022-12-31] MEDS ORDERED: ALBUTEROL SULFATE HFA 90 MCG/PUFF 8 GM INHALER IH PRN (07:45)
[2022-12-31] MEDS ORDERED: IBUPROFEN 400 MG TABLET PO PRN (07:45)
[2022-12-31] MEDS ORDERED: NICOTINE 14 MG/24 HOUR PATCH TD PRN (07:45)
[2022-12-31] MEDS ORDERED: ONDANSETRON HCL 4 MG TABLET PO PRN (07:45)
[2022-12-31] MEDS ORDERED: LOPERAMIDE HCL 2 MG CAPSULE PO PRN (07:45)
[2022-12-31] MEDS ORDERED: GuaiFENesin/D-METHORPHAN [SUGAR-FREE] 200-20MG/10 ML SYRUP UDCUP PO PRN (07:45)
[2022-12-31] MEDS ORDERED: MAGNESIUM HYDROXIDE SUSPENSION 30 ML UDCUP PO PRN (07:45)
[2022-12-31 08:45] VITALS: BP 108/53
[2022-12-31 16:35] VITALS: BP 114/83
[2022-12-31 20:52] VITALS: BP 109/69
[2022-12-31] MEDS: SIMVASTATIN 10 MG TABLET PO SCH (20:52)
[2023-01-01 09:00] VITALS: BP 125/70
[2023-01-01 16:40] VITALS: BP 125/70
[2023-01-01 16:42] VITALS: BP 109/71
[2023-01-01 20:39] VITALS: BP 119/70
[2023-01-01] MEDS: ACETAMINOPHEN 325 MG TABLET PO PRN (20:39)
[2023-01-01] MEDS: SIMVASTATIN 10 MG TABLET PO SCH (20:40)
[2023-01-01] MEDS: ZOLPIDEM TARTRATE 10 MG TABLET PO PRN (22:01)
[2023-01-02 09:22] VITALS: BP 108/85
[2023-01-02 16:20] VITALS: BP 126/93
[2023-01-02] MEDS: SIMVASTATIN 10 MG TABLET PO SCH (20:40)
[2023-01-02 20:59] VITALS: BP 101/70
[2023-01-03] MEDS: ZOLPIDEM TARTRATE 10 MG TABLET PO PRN ×2 (00:27→21:44)
[2023-01-03 08:59] VITALS: BP 98/63
[2023-01-03 16:11] VITALS: BP 103/54
[2023-01-03 20:26] VITALS: BP 115/84
[2023-01-03] MEDS: SIMVASTATIN 10 MG TABLET PO SCH (20:27)
[2023-01-03 22:36] VITALS: BP 110/72
[2023-01-03] MEDS: ACETAMINOPHEN 325 MG TABLET PO PRN (22:40)
[2023-01-04 08:43] VITALS: BP 122/52
[2023-01-04] MEDS ORDERED: SIMV10TA97 PO (11:07)
[2023-01-04] MEDS ORDERED: PALI234D IM (11:07)
[2023-01-23] MEDS ORDERED: PALIPERIDONE PALMITATE 234 MG/1.5 ML SYRINGE IM SCH (09:00)
== END 2023-01-04 15:20 | disposition home or self-care (01) | DRG 885 ==
LOC: EMS 15:57 → 3EI 22:28
PROVIDERS: ADMIT Psychiatry & Neurology Psychiatry; ATTEND Psychiatry & Neurology Psychiatry
DX: F25.0 Schizoaffective disorder, bipolar type (principal); R45.851 Suicidal ideations; Z68.41 Body mass index [BMI] 40.0-44.9, adult; K21.9 Gastro-esophageal reflux disease without esophagitis; E78.00 Pure hypercholesterolemia, unspecified; Z20.822 Contact with and (suspected) exposure to COVID-19; E66.9 Obesity, unspecified; F99 Mental disorder, not otherwise specified; D72.829 Elevated white blood cell count, unspecified
CPT/HCPCS: 80053; 80307; 81003; 84703; 85025; 99285; G0480

== ENCOUNTER 2023-02-13 23:51 | Emergency (ER) | payer MEDICARE, OTHER ==
[~2023-02-13] VITALS: Ht 154.9 cm; Wt 104.5 kg
[~2023-02-13 23:51] MED LIST changes: -DIVA-112 PO; -LURA60TA PO; +PALI234D IM; -RISP1TAB48 PO; +SIMV10TA97 PO; -TRAZ150T80 PO
[2023-02-14 01:05] VITALS: BP 124/84
[2023-02-14 01:23] LABS: BASOPHILS % (AUTO) 0.6 % (0.0-2.0); EOSINOPHILS % (AUTO) 3.2 % (1.0-6.0); HEMATOCRIT 39.9 % (36-46); HEMOGLOBIN 13.4 g/dL (12.0-16.0); LYMPHOCYTES # (AUTO) 3.8 K/uL (1.0-4.8); MEAN CORPUSCULAR HGB CONC 33.6 G/dL (31.0-37.0); MEAN CORPUSCULAR VOLUME 89 fL (80-100); MONOCYTES # (AUTO) 1.3 K/uL (0.1-1.0); MONOCYTES % (AUTO) 8.8 % (2.0-9.0); NEUTROPHILS % (AUTO) 61.4 % (40.0-70.0); PLATELET COUNT (AUTO) 224 K/uL (150-450); RED BLOOD CELL COUNT(AUTO) 4.48 MIL/uL (4.00-5.20); RED CELL DISTRIBUTION WIDTH 13.7 % (11.5-14.5)
[2023-02-14 01:33] LABS: ANION GAP 7 mmol/L (8-16); CALCIUM, TOTAL 9.2 mg/dL (8.8-10.5); CARBON DIOXIDE 29 mmol/L (22-29); CHLORIDE 101 mmol/L (98-107); CREATININE 0.53 mg/dL (0.60-1.30); GLOMERULAR FILTR. RATE CALC > 60 mL/min (>60); GLUCOSE,RANDOM 90 mg/dL (70-110); POTASSIUM 3.7 mmol/L (3.5-5.1); SODIUM SERUM 137 mmol/L (136-145)
[2023-02-14 01:36] LABS: AMPHET/METH SCREEN,URINE NEGATIVE (NEGATIVE); BARBITURATE SCREEN, URINE NEGATIVE (NEGATIVE); BENZODIAZEPINES SCREEN,URINE NEGATIVE (NEGATIVE); CANNABINOID SCREEN,URINE NEGATIVE (NEGATIVE); COCAINE SCREEN,URINE NEGATIVE (NEGATIVE); METHADONE SCREEN, URINE NEGATIVE (NEGATIVE); OPIATE SCREEN,URINE NEGATIVE (NEGATIVE); PHENCYCLIDINE SCREEN,URINE NEGATIVE (NEGATIVE)
[2023-02-14 01:39] LABS: ALANINE AMINOTRANSFERASE 26 U/L (12-78); ALBUMIN 3.6 g/dL (3.4-5.0); ALKALINE PHOSPHATASE 86 U/L (46-116); ASPARTATE AMINOTRANSFERASE 12 U/L (15-37); BILIRUBIN,TOTAL 0.2 mg/dL (0.1-1.0); TOTAL PROTEIN, SERUM 7.5 g/dL (6.4-8.2)
== END 2023-02-14 06:53 | disposition home or self-care (01) ==
LOC: EMS 23:51
DX: F25.0 Schizoaffective disorder, bipolar type (principal); E78.00 Pure hypercholesterolemia, unspecified; K76.0 Fatty (change of) liver, not elsewhere classified
CPT/HCPCS: 99284; 80053; 85025; 36415; 80307 ×2; G0480

== ENCOUNTER 2023-02-24 09:03 | Emergency (ER) | payer MEDICARE, OTHER ==
[~2023-02-24] VITALS: Ht 154.9 cm; Wt 106.6 kg
[2023-02-24 10:28] LABS: BASOPHILS % (AUTO) 0.4 % (0.0-2.0); EOSINOPHILS % (AUTO) 1.5 % (1.0-6.0); HEMATOCRIT 39.8 % (36-46); LYMPHOCYTES # (AUTO) 2.5 K/uL (1.0-4.8); LYMPHOCYTES % (AUTO) 14.9 % (22.0-44.0); MEAN CORPUSCULAR HEMOGLOBIN 29.6 pg (26.0-34.0); MEAN CORPUSCULAR HGB CONC 32.8 G/dL (31.0-37.0); MEAN CORPUSCULAR VOLUME 90 fL (80-100); MONOCYTES # (AUTO) 1.8 K/uL (0.1-1.0); MONOCYTES % (AUTO) 10.7 % (2.0-9.0); NEUTROPHILS # (AUTO) 12.4 K/uL (1.8-7.7); NEUTROPHILS % (AUTO) 72.5 % (40.0-70.0); PLATELET COUNT (AUTO) 210 K/uL (150-450); RED BLOOD CELL COUNT(AUTO) 4.41 MIL/uL (4.00-5.20); RED CELL DISTRIBUTION WIDTH 13.6 % (11.5-14.5)
[2023-02-24 10:38] LABS: ANION GAP 11 mmol/L (8-16); CALCIUM, TOTAL 8.5 mg/dL (8.8-10.5); CARBON DIOXIDE 26 mmol/L (22-29); CHLORIDE 102 mmol/L (98-107); CREATININE 0.54 mg/dL (0.60-1.30); GLOMERULAR FILTR. RATE CALC > 60 mL/min (>60); GLUCOSE,RANDOM 98 mg/dL (70-110); POTASSIUM 3.7 mmol/L (3.5-5.1); SODIUM SERUM 139 mmol/L (136-145)
[2023-02-24 10:44] LABS: ALANINE AMINOTRANSFERASE 20 U/L (12-78); ALBUMIN 3.7 g/dL (3.4-5.0); ALKALINE PHOSPHATASE 86 U/L (46-116); ASPARTATE AMINOTRANSFERASE 13 U/L (15-37); BILIRUBIN,TOTAL 0.4 mg/dL (0.1-1.0); TOTAL PROTEIN, SERUM 7.6 g/dL (6.4-8.2)
[2023-02-24 13:40] LABS: AMPHET/METH SCREEN,URINE NEGATIVE (NEGATIVE); BARBITURATE SCREEN, URINE NEGATIVE (NEGATIVE); BENZODIAZEPINES SCREEN,URINE NEGATIVE (NEGATIVE); CANNABINOID SCREEN,URINE NEGATIVE (NEGATIVE); COCAINE SCREEN,URINE NEGATIVE (NEGATIVE); METHADONE SCREEN, URINE NEGATIVE (NEGATIVE); OPIATE SCREEN,URINE NEGATIVE (NEGATIVE); PHENCYCLIDINE SCREEN,URINE NEGATIVE (NEGATIVE)
[2023-02-24] MEDS ORDERED: FluPHENAZine HCL 10 MG TABLET PO ONE (15:15)
[2023-02-24 15:55] VITALS: BP 122/72
== END 2023-02-24 15:57 | disposition home or self-care (01) ==
LOC: EMS 09:06
DX: F25.9 Schizoaffective disorder, unspecified (principal); E78.00 Pure hypercholesterolemia, unspecified
CPT/HCPCS: 99284; 80053; 85025; 36415; 80307; G0480

== ENCOUNTER 2023-03-04 23:39 | Emergency (ER) | payer MEDICARE, OTHER ==
[~2023-03-04] VITALS: Ht 154.9 cm; Wt 106.8 kg
[2023-03-05 00:10] LABS: BASOPHILS % (AUTO) 0.6 % (0.0-2.0); EOSINOPHILS % (AUTO) 2.7 % (1.0-6.0); HEMATOCRIT 38.7 % (36-46); HEMOGLOBIN 12.8 g/dL (12.0-16.0); LYMPHOCYTES # (AUTO) 3.9 K/uL (1.0-4.8); LYMPHOCYTES % (AUTO) 25.7 % (22.0-44.0); MEAN CORPUSCULAR HEMOGLOBIN 29.8 pg (26.0-34.0); MEAN CORPUSCULAR VOLUME 90 fL (80-100); MONOCYTES # (AUTO) 1.7 K/uL (0.1-1.0); MONOCYTES % (AUTO) 11.3 % (2.0-9.0); NEUTROPHILS # (AUTO) 9.1 K/uL (1.8-7.7); NEUTROPHILS % (AUTO) 59.7 % (40.0-70.0); PLATELET COUNT (AUTO) 224 K/uL (150-450); RED BLOOD CELL COUNT(AUTO) 4.29 MIL/uL (4.00-5.20); RED CELL DISTRIBUTION WIDTH 13.7 % (11.5-14.5)
[2023-03-05 00:14] LABS: COVID AG,FIA SOURCE NASOPHARYNGEAL
[2023-03-05 00:14] LABS: ANION GAP 10 mmol/L (8-16); CALCIUM, TOTAL 8.8 mg/dL (8.8-10.5); CARBON DIOXIDE 26 mmol/L (22-29); CHLORIDE 103 mmol/L (98-107); CREATININE 0.58 mg/dL (0.60-1.30); GLOMERULAR FILTR. RATE CALC > 60 mL/min (>60); GLUCOSE,RANDOM 110 mg/dL (70-110); POTASSIUM 3.8 mmol/L (3.5-5.1); SODIUM SERUM 139 mmol/L (136-145)
[2023-03-05 00:17] LABS: ALANINE AMINOTRANSFERASE 19 U/L (12-78); ALBUMIN 3.4 g/dL (3.4-5.0); ALKALINE PHOSPHATASE 87 U/L (46-116); ASPARTATE AMINOTRANSFERASE 10 U/L (15-37); BILIRUBIN,TOTAL 0.1 mg/dL (0.1-1.0)
[2023-03-05] MEDS ORDERED: QUEtiapine FUMARATE 25 MG TABLET PO ONE ×2 (00:30)
[2023-03-05 00:44] LABS: AMPHET/METH SCREEN,URINE NEGATIVE (NEGATIVE); BARBITURATE SCREEN, URINE NEGATIVE (NEGATIVE); BENZODIAZEPINES SCREEN,URINE NEGATIVE (NEGATIVE); CANNABINOID SCREEN,URINE NEGATIVE (NEGATIVE); COCAINE SCREEN,URINE NEGATIVE (NEGATIVE); METHADONE SCREEN, URINE NEGATIVE (NEGATIVE); OPIATE SCREEN,URINE NEGATIVE (NEGATIVE); PHENCYCLIDINE SCREEN,URINE NEGATIVE (NEGATIVE)
[2023-03-05 02:48] VITALS: BP 122/68
== END 2023-03-05 02:48 | disposition home or self-care (01) ==
LOC: EMS 23:44
DX: F20.9 Schizophrenia, unspecified (principal); F41.9 Anxiety disorder, unspecified; F31.9 Bipolar disorder, unspecified; E78.00 Pure hypercholesterolemia, unspecified; K76.0 Fatty (change of) liver, not elsewhere classified; F12.90 Cannabis use, unspecified, uncomplicated; Z98.890 Other specified postprocedural states; Z20.822 Contact with and (suspected) exposure to COVID-19
CPT/HCPCS: 99284; 87426; 80053; 84703; 85025; 36415; 80307; G0480

== ENCOUNTER 2023-03-16 02:03 | Emergency (ER) | payer MEDICARE, OTHER ==
[~2023-03-16] VITALS: Ht 154.9 cm; Wt 107.7 kg
[2023-03-16 02:23] VITALS: BP 118/73; PULSE 86; RESP 18; TEMP 98.5
[2023-03-16 02:36] LABS: BASOPHILS % (AUTO) 0.9 % (0.0-2.0); HEMATOCRIT 38.6 % (36-46); LYMPHOCYTES # (AUTO) 4.1 K/uL (1.0-4.8); LYMPHOCYTES % (AUTO) 29.3 % (22.0-44.0); MEAN CORPUSCULAR HEMOGLOBIN 30.2 pg (26.0-34.0); MEAN CORPUSCULAR HGB CONC 33.5 G/dL (31.0-37.0); MEAN CORPUSCULAR VOLUME 90 fL (80-100); MONOCYTES # (AUTO) 1.5 K/uL (0.1-1.0); MONOCYTES % (AUTO) 10.5 % (2.0-9.0); NEUTROPHILS # (AUTO) 7.9 K/uL (1.8-7.7); NEUTROPHILS % (AUTO) 56.3 % (40.0-70.0); PLATELET COUNT (AUTO) 216 K/uL (150-450); RED BLOOD CELL COUNT(AUTO) 4.29 MIL/uL (4.00-5.20); RED CELL DISTRIBUTION WIDTH 13.7 % (11.5-14.5)
[2023-03-16 02:46] LABS: ANION GAP 3 mmol/L (8-16); CALCIUM, TOTAL 9.1 mg/dL (8.8-10.5); CARBON DIOXIDE 31 mmol/L (22-29); CHLORIDE 105 mmol/L (98-107); CREATININE 0.66 mg/dL (0.60-1.30); GLOMERULAR FILTR. RATE CALC > 60 mL/min (>60); GLUCOSE,RANDOM 101 mg/dL (70-110); POTASSIUM 4.1 mmol/L (3.5-5.1); SODIUM SERUM 139 mmol/L (136-145)
[2023-03-16 02:52] LABS: ALANINE AMINOTRANSFERASE 22 U/L (12-78); ALBUMIN 3.4 g/dL (3.4-5.0); ALKALINE PHOSPHATASE 88 U/L (46-116); ASPARTATE AMINOTRANSFERASE 10 U/L (15-37); BILIRUBIN,TOTAL 0.1 mg/dL (0.1-1.0); TOTAL PROTEIN, SERUM 7.2 g/dL (6.4-8.2)
[2023-03-16 03:00] LABS: COVID AG,FIA SOURCE NASAL SWAB
[2023-03-16] MEDS ORDERED: QUEtiapine FUMARATE 25 MG TABLET PO ONE (03:00)
[2023-03-16 03:41] LABS: AMPHET/METH SCREEN,URINE NEGATIVE (NEGATIVE); BARBITURATE SCREEN, URINE NEGATIVE (NEGATIVE); BENZODIAZEPINES SCREEN,URINE NEGATIVE (NEGATIVE); CANNABINOID SCREEN,URINE NEGATIVE (NEGATIVE); COCAINE SCREEN,URINE NEGATIVE (NEGATIVE); METHADONE SCREEN, URINE NEGATIVE (NEGATIVE); OPIATE SCREEN,URINE NEGATIVE (NEGATIVE); PHENCYCLIDINE SCREEN,URINE NEGATIVE (NEGATIVE)
== END 2023-03-16 04:14 | disposition home or self-care (01) ==
LOC: EMS 02:05
DX: F20.9 Schizophrenia, unspecified (principal); L05.01 Pilonidal cyst with abscess; F41.9 Anxiety disorder, unspecified; F31.9 Bipolar disorder, unspecified; E78.00 Pure hypercholesterolemia, unspecified; K21.9 Gastro-esophageal reflux disease without esophagitis; K76.0 Fatty (change of) liver, not elsewhere classified; K52.9 Noninfective gastroenteritis and colitis, unspecified; F12.90 Cannabis use, unspecified, uncomplicated; Z20.822 Contact with and (suspected) exposure to COVID-19
CPT/HCPCS: 99284; 87426; 80053; 85025; 36415; 80307 ×2; G0480

== ENCOUNTER 2023-04-02 00:13 | Emergency (ER) | payer MEDICARE, OTHER ==
[~2023-04-02] VITALS: Ht 154.9 cm; Wt 108.6 kg
[2023-04-02 01:01] VITALS: TEMP 98.6
[2023-04-02 02:38] VITALS: BP 126/75; PULSE 71; RESP 18
== END 2023-04-02 02:40 | disposition home or self-care (01) ==
LOC: EMS 00:14
DX: F41.9 Anxiety disorder, unspecified (principal); R44.0 Auditory hallucinations; F31.9 Bipolar disorder, unspecified; E78.00 Pure hypercholesterolemia, unspecified; K76.0 Fatty (change of) liver, not elsewhere classified; F12.90 Cannabis use, unspecified, uncomplicated; Z98.890 Other specified postprocedural states
CPT/HCPCS: 99284; Z7502

== ENCOUNTER 2023-04-26 11:50 | Emergency (ER) | payer MEDICARE, OTHER ==
[~2023-04-26] VITALS: Ht 160 cm; Wt 97.7 kg
[~2023-04-26 11:50] MED LIST changes: +ATOR20TA65 PO; +NORE1TAB32 PO; -SIMV-259 PO; -SIMV10TA97 PO; +TRAZ-252 PO; +[UNRECOGNIZED DRUG - CODE] PO
[2023-04-26 12:34] LABS: BASOPHILS % (AUTO) 0.7 % (0.0-2.0); EOSINOPHILS % (AUTO) 3.9 % (1.0-6.0); HEMATOCRIT 38.9 % (36-46); LYMPHOCYTES # (AUTO) 3.2 K/uL (1.0-4.8); LYMPHOCYTES % (AUTO) 26.8 % (22.0-44.0); MEAN CORPUSCULAR HEMOGLOBIN 29.6 pg (26.0-34.0); MEAN CORPUSCULAR HGB CONC 33.4 G/dL (31.0-37.0); MEAN CORPUSCULAR VOLUME 89 fL (80-100); MONOCYTES % (AUTO) 8.3 % (2.0-9.0); NEUTROPHILS # (AUTO) 7.2 K/uL (1.8-7.7); NEUTROPHILS % (AUTO) 60.3 % (40.0-70.0); PLATELET COUNT (AUTO) 232 K/uL (150-450); RED BLOOD CELL COUNT(AUTO) 4.39 MIL/uL (4.00-5.20); RED CELL DISTRIBUTION WIDTH 13.3 % (11.5-14.5)
[2023-04-26 12:43] LABS: ANION GAP 12 mmol/L (8-16); CALCIUM, TOTAL 8.6 mg/dL (8.8-10.5); CARBON DIOXIDE 25 mmol/L (22-29); CHLORIDE 103 mmol/L (98-107); CREATININE 0.58 mg/dL (0.60-1.30); GLOMERULAR FILTR. RATE CALC > 60 mL/min (>60); GLUCOSE,RANDOM 107 mg/dL (70-110); POTASSIUM 3.6 mmol/L (3.5-5.1); SODIUM SERUM 140 mmol/L (136-145)
[2023-04-26 12:46] LABS: COVID AG,FIA SOURCE NASOPHARYNGEAL
[2023-04-26 12:54] LABS: ALANINE AMINOTRANSFERASE 17 U/L (12-78); ALBUMIN 3.2 g/dL (3.4-5.0); ALKALINE PHOSPHATASE 66 U/L (46-116); ASPARTATE AMINOTRANSFERASE 10 U/L (15-37); BILIRUBIN,TOTAL 0.3 mg/dL (0.1-1.0); HCG,QUANTITATIVE < 1 mIU/mL (0-6); TOTAL PROTEIN, SERUM 7.3 g/dL (6.4-8.2)
[2023-04-26 14:38] VITALS: BP 102/78; PULSE 71; RESP 18; TEMP 98.6
== END 2023-04-26 14:43 | disposition home or self-care (01) ==
LOC: EMS 11:50
DX: F25.0 Schizoaffective disorder, bipolar type (principal); F41.9 Anxiety disorder, unspecified; R06.02 Shortness of breath; E78.00 Pure hypercholesterolemia, unspecified; F12.90 Cannabis use, unspecified, uncomplicated; Z98.890 Other specified postprocedural states; Z20.822 Contact with and (suspected) exposure to COVID-19
CPT/HCPCS: 99284; 71045; 87426; 80053; 84702; 85025; 36415; G0480; C9803

== ENCOUNTER 2023-06-11 23:59 | Emergency (ER) | payer MEDICARE, OTHER ==
[~2023-06-11] VITALS: Ht 154.9 cm; Wt 49.2 kg
[~2023-06-11 23:59] MED LIST changes: -NORE1TAB32 PO
[2023-06-12 00:33] VITALS: BP 128/78; PULSE 82; RESP 19; TEMP 98.6
== END 2023-06-12 02:27 | disposition home or self-care (01) ==
LOC: EMS 23:59
DX: F25.9 Schizoaffective disorder, unspecified (principal); K76.0 Fatty (change of) liver, not elsewhere classified; Z98.890 Other specified postprocedural states
CPT/HCPCS: 99284; Z7502; Z7610

== ENCOUNTER 2023-06-19 22:46 | Emergency (ER) | payer MEDICARE, OTHER ==
[~2023-06-19] VITALS: Ht 154.9 cm; Wt 104.5 kg
[2023-06-20 00:57] LABS: APPEARANCE,URINE HAZY (CLEAR); BILIRUBIN,URINE NEGATIVE (NEGATIVE); COLOR,URINE COLORLESS (YELLOW); GLUCOSE, URINE (UA) NEGATIVE (NEGATIVE); KETONES,URINE NEGATIVE (NEGATIVE); LEUKOCYTE ESTERASE ,URINE NEGATIVE (NEGATIVE); NITRATE,URINE NEGATIVE (NEGATIVE); OCCULT BLOOD,URINE NEGATIVE (NEGATIVE); PH,URINE 7.5 (5.0-8.0); PROTEIN,URINE NEGATIVE (NEGATIVE); SPECIFIC GRAVITIY, URINE 1.012 (1.003-1.030); UROBILINOGEN,URINE <=1.0 mg/dL (<=1.0)
[2023-06-20 01:21] VITALS: TEMP 98.5
[2023-06-20 02:07] VITALS: BP 119/84; PULSE 69; RESP 18
[2023-06-20] MEDS ORDERED: POLY119P3 PO (02:11)
== END 2023-06-20 03:46 | disposition home or self-care (01) ==
LOC: EMS 22:48
DX: K59.00 Constipation, unspecified (principal); M54.9 Dorsalgia, unspecified; F41.9 Anxiety disorder, unspecified; F31.9 Bipolar disorder, unspecified; E78.00 Pure hypercholesterolemia, unspecified; E03.9 Hypothyroidism, unspecified; F20.9 Schizophrenia, unspecified; Z98.890 Other specified postprocedural states
CPT/HCPCS: 74022; 81003; 84703; 99284

== ENCOUNTER 2023-08-14 23:43 | Emergency (ER) | payer MEDICARE, OTHER ==
[~2023-08-14] VITALS: Ht 154.9 cm; Wt 109.0 kg
[~2023-08-14 23:43] MED LIST changes: +POLY119P3 PO
[2023-08-15 00:11] VITALS: TEMP 97.9
[2023-08-15 02:10] VITALS: BP 113/70; PULSE 70; RESP 18
== END 2023-08-15 02:17 | disposition home or self-care (01) ==
LOC: EMS 23:45
DX: G47.00 Insomnia, unspecified (principal); F41.9 Anxiety disorder, unspecified; F31.9 Bipolar disorder, unspecified; E78.00 Pure hypercholesterolemia, unspecified; E03.9 Hypothyroidism, unspecified; F20.9 Schizophrenia, unspecified; Z98.890 Other specified postprocedural states
CPT/HCPCS: 99281; Z7502

== ENCOUNTER 2023-10-20 00:10 | Emergency (ER) | payer MEDICARE, OTHER ==
[2023-10-20 02:33] LABS: COVID AG,FIA SOURCE NASAL SWAB
[2023-10-20 02:35] LABS: BASOPHILS % (AUTO) 1.1 % (0.0-2.0); EOSINOPHILS % (AUTO) 3.7 % (1.0-6.0); HEMATOCRIT 37.4 % (36-46); HEMOGLOBIN 12.6 g/dL (12.0-16.0); LYMPHOCYTES # (AUTO) 3.6 K/uL (1.0-4.8); LYMPHOCYTES % (AUTO) 29.7 % (22.0-44.0); MEAN CORPUSCULAR HEMOGLOBIN 29.9 pg (26.0-34.0); MEAN CORPUSCULAR HGB CONC 33.7 G/dL (31.0-37.0); MEAN CORPUSCULAR VOLUME 89 fL (80-100); MONOCYTES # (AUTO) 1.2 K/uL (0.1-1.0); NEUTROPHILS # (AUTO) 6.6 K/uL (1.8-7.7); NEUTROPHILS % (AUTO) 55.5 % (40.0-70.0); PLATELET COUNT (AUTO) 211 K/uL (150-450); RED BLOOD CELL COUNT(AUTO) 4.22 MIL/uL (4.00-5.20); RED CELL DISTRIBUTION WIDTH 14.3 % (11.5-14.5)
[2023-10-20 02:37] VITALS: BP 108/54; PULSE 63; RESP 16
[2023-10-20 02:44] LABS: ANION GAP 10 mmol/L (8-16); CALCIUM, TOTAL 8.3 mg/dL (8.8-10.5); CARBON DIOXIDE 25 mmol/L (22-29); CHLORIDE 104 mmol/L (98-107); CREATININE 0.64 mg/dL (0.60-1.30); GLOMERULAR FILTR. RATE CALC > 60 mL/min (>60); GLUCOSE,RANDOM 100 mg/dL (70-110); POTASSIUM 3.7 mmol/L (3.5-5.1); SODIUM SERUM 139 mmol/L (136-145); UREA NITROGEN, BLOOD 13 mg/dL (7-18)
[2023-10-20 02:45] LABS: SARS-COV2 (COVID) ANTIGEN,FIA Negative (Negative)
[2023-10-20] MEDS ORDERED: OLANZapine 5 MG TABLET PO ONE (02:45)
[2023-10-20] MEDS ORDERED: LORazepam 1 MG TABLET PO ONE (02:45)
[2023-10-20 02:50] LABS: ALANINE AMINOTRANSFERASE 22 U/L (12-78); ALBUMIN 3.4 g/dL (3.4-5.0); ALKALINE PHOSPHATASE 71 U/L (46-116); ASPARTATE AMINOTRANSFERASE 16 U/L (15-37); BILIRUBIN,TOTAL 0.2 mg/dL (0.1-1.0); TOTAL PROTEIN, SERUM 6.7 g/dL (6.4-8.2)
[2023-10-20 02:51] LABS: ALCOHOL, BLOOD (SERUM) < 3 mg/dL (0-10)
== END 2023-10-20 05:14 | disposition home or self-care (01) ==
LOC: EMS 00:10
DX: F41.9 Anxiety disorder, unspecified (principal); F31.9 Bipolar disorder, unspecified; E78.00 Pure hypercholesterolemia, unspecified; E03.9 Hypothyroidism, unspecified; Z98.890 Other specified postprocedural states; Z20.822 Contact with and (suspected) exposure to COVID-19
CPT/HCPCS: 99284; 87426; 80053; 85025; 36415; G0480

== ENCOUNTER 2023-11-07 00:39 | Emergency (ER) | payer MEDICARE, OTHER ==
[~2023-11-07] VITALS: Ht 154.9 cm; Wt 107.0 kg
[2023-11-07 00:53] VITALS: TEMP 98
[2023-11-07] MEDS: DiphenhydrAMINE HCL 50 MG CAPSULE PO ONE (02:20)
[2023-11-07 02:52] VITALS: BP 113/70; PULSE 77; RESP 18
== END 2023-11-07 03:52 | disposition home or self-care (01) ==
LOC: EMS 00:40
DX: G47.00 Insomnia, unspecified (principal); F41.9 Anxiety disorder, unspecified; F20.9 Schizophrenia, unspecified; Z98.890 Other specified postprocedural states
CPT/HCPCS: 99282; Z7502; Z7610

== ENCOUNTER 2023-11-23 14:50 | Emergency (ER) | payer MEDICARE, OTHER ==
[~2023-11-23] VITALS: Ht 154.9 cm; Wt 110.0 kg
[2023-11-23 15:38] VITALS: TEMP 98.6
[2023-11-23] MEDS: MAG HYDROX/ALUMINUM HYD/SIMETH 30 ML SUSPENSION UDCUP PO ONE (15:49)
[2023-11-23] MEDS: ACETAMINOPHEN 500 MG TABLET PO ONE (15:50)
[2023-11-23] MEDS: FAMOTIDINE 20 MG TABLET PO ONE (15:50)
[2023-11-23] MEDS: ONDANSETRON HCL 4 MG TABLET PO ONE (15:50)
[2023-11-23 15:55] LABS: BASOPHILS % (AUTO) 0.8 % (0.0-2.0); EOSINOPHILS % (AUTO) 2.6 % (1.0-6.0); HEMATOCRIT 39.4 % (36-46); HEMOGLOBIN 13.3 g/dL (12.0-16.0); LYMPHOCYTES % (AUTO) 20.7 % (22.0-44.0); MEAN CORPUSCULAR HEMOGLOBIN 30.2 pg (26.0-34.0); MEAN CORPUSCULAR HGB CONC 33.8 G/dL (31.0-37.0); MEAN CORPUSCULAR VOLUME 89 fL (80-100); MONOCYTES # (AUTO) 1.1 K/uL (0.1-1.0); MONOCYTES % (AUTO) 7.8 % (2.0-9.0); NEUTROPHILS # (AUTO) 9.8 K/uL (1.8-7.7); NEUTROPHILS % (AUTO) 68.1 % (40.0-70.0); PLATELET COUNT (AUTO) 219 K/uL (150-450); RED BLOOD CELL COUNT(AUTO) 4.41 MIL/uL (4.00-5.20); RED CELL DISTRIBUTION WIDTH 13.6 % (11.5-14.5); WHITE BLOOD COUNT (AUTO) 14.3 K/uL (4.5-11.0)
[2023-11-23 15:58] LABS: APPEARANCE,URINE CLEAR (CLEAR); BILIRUBIN,URINE NEGATIVE (NEGATIVE); COLOR,URINE COLORLESS (YELLOW); GLUCOSE, URINE (UA) NEGATIVE (NEGATIVE); KETONES,URINE NEGATIVE (NEGATIVE); LEUKOCYTE ESTERASE ,URINE NEGATIVE (NEGATIVE); NITRATE,URINE NEGATIVE (NEGATIVE); OCCULT BLOOD,URINE NEGATIVE (NEGATIVE); PH,URINE 6.5 (5.0-8.0); PROTEIN,URINE NEGATIVE (NEGATIVE); SPECIFIC GRAVITIY, URINE 1.007 (1.003-1.030); UROBILINOGEN,URINE <=1.0 mg/dL (<=1.0)
[2023-11-23] MEDS ORDERED: ONDA-104 PO (16:09)
[2023-11-23] MEDS ORDERED: IBUP-1492 PO (16:09)
[2023-11-23] MEDS ORDERED: ACET-3385 PO (16:09)
[2023-11-23 16:49] LABS: ANION GAP 15 mmol/L (8-16); CALCIUM, TOTAL 8.9 mg/dL (8.8-10.5); CARBON DIOXIDE 22 mmol/L (22-29); CHLORIDE 102 mmol/L (98-107); GLOMERULAR FILTR. RATE CALC > 60 mL/min (>60); GLUCOSE,RANDOM 95 mg/dL (70-110); POTASSIUM 3.5 mmol/L (3.5-5.1); SODIUM SERUM 139 mmol/L (136-145); UREA NITROGEN, BLOOD 13 mg/dL (7-18)
[2023-11-23 16:55] LABS: ALANINE AMINOTRANSFERASE 21 U/L (12-78); ALBUMIN 3.6 g/dL (3.4-5.0); ALKALINE PHOSPHATASE 69 U/L (46-116); ASPARTATE AMINOTRANSFERASE 15 U/L (15-37); BILIRUBIN,TOTAL 0.2 mg/dL (0.1-1.0); LIPASE 40 U/L (16-77); TOTAL PROTEIN, SERUM 7.2 g/dL (6.4-8.2)
[2023-11-23 17:21] VITALS: BP 138/72; PULSE 75; RESP 14
== END 2023-11-23 17:35 | disposition home or self-care (01) ==
LOC: EMS 14:50
DX: R10.9 Unspecified abdominal pain (principal); F41.9 Anxiety disorder, unspecified; F20.9 Schizophrenia, unspecified
CPT/HCPCS: 99284; 80053; 81003; 83690; 84703; 85025; 36415; Q0162

== ENCOUNTER 2023-12-03 22:47 | Emergency (ER) | payer MEDICARE, OTHER ==
[~2023-12-03] VITALS: Ht 160 cm; Wt 81.0 kg
[~2023-12-03 22:47] MED LIST changes: +ACET-3385 PO; +IBUP-1492 PO; +ONDA-104 PO
[2023-12-03 22:58] VITALS: TEMP 98.7
[2023-12-03 23:25] LABS: BASOPHILS % (AUTO) 0.6 % (0.0-2.0); EOSINOPHILS % (AUTO) 2.4 % (1.0-6.0); HEMATOCRIT 41.1 % (36-46); HEMOGLOBIN 13.5 g/dL (12.0-16.0); LYMPHOCYTES # (AUTO) 3.6 K/uL (1.0-4.8); LYMPHOCYTES % (AUTO) 22.9 % (22.0-44.0); MEAN CORPUSCULAR HEMOGLOBIN 29.5 pg (26.0-34.0); MEAN CORPUSCULAR HGB CONC 32.8 G/dL (31.0-37.0); MEAN CORPUSCULAR VOLUME 90 fL (80-100); MONOCYTES # (AUTO) 1.1 K/uL (0.1-1.0); MONOCYTES % (AUTO) 6.7 % (2.0-9.0); NEUTROPHILS # (AUTO) 10.6 K/uL (1.8-7.7); NEUTROPHILS % (AUTO) 67.4 % (40.0-70.0); PLATELET COUNT (AUTO) 199 K/uL (150-450); RED BLOOD CELL COUNT(AUTO) 4.57 MIL/uL (4.00-5.20); RED CELL DISTRIBUTION WIDTH 13.8 % (11.5-14.5); WHITE BLOOD COUNT (AUTO) 15.7 K/uL (4.5-11.0)
[2023-12-03 23:37] LABS: ALCOHOL, BLOOD (SERUM) < 3 mg/dL (0-10)
[2023-12-03 23:47] LABS: ANION GAP 10 mmol/L (8-16); CALCIUM, TOTAL 9.2 mg/dL (8.8-10.5); CARBON DIOXIDE 25 mmol/L (22-29); CHLORIDE 102 mmol/L (98-107); CREATININE 0.64 mg/dL (0.60-1.30); GLOMERULAR FILTR. RATE CALC > 60 mL/min (>60); GLUCOSE,RANDOM 175 mg/dL (70-110); POTASSIUM 3.5 mmol/L (3.5-5.1); SODIUM SERUM 137 mmol/L (136-145); UREA NITROGEN, BLOOD 12 mg/dL (7-18)
[2023-12-03] MEDS: DiphenhydrAMINE HCL 25 MG CAPSULE PO ONE (23:50)
[2023-12-03] MEDS: QUEtiapine FUMARATE 100 MG TABLET PO ONE (23:52)
[2023-12-03 23:53] LABS: ALANINE AMINOTRANSFERASE 18 U/L (12-78); ALBUMIN 3.3 g/dL (3.4-5.0); ALKALINE PHOSPHATASE 77 U/L (46-116); ASPARTATE AMINOTRANSFERASE 11 U/L (15-37); BILIRUBIN,TOTAL 0.2 mg/dL (0.1-1.0); TOTAL PROTEIN, SERUM 7.5 g/dL (6.4-8.2)
[2023-12-04 00:11] LABS: ALCOHOL, URINE DRUG SCREEN NEGATIVE (NEGATIVE); AMPHET/METH SCREEN,URINE NEGATIVE (NEGATIVE); BARBITURATE SCREEN, URINE NEGATIVE (NEGATIVE); BENZODIAZEPINES SCREEN,URINE NEGATIVE (NEGATIVE); CANNABINOID SCREEN,URINE NEGATIVE (NEGATIVE); COCAINE SCREEN,URINE NEGATIVE (NEGATIVE); METHADONE SCREEN, URINE NEGATIVE (NEGATIVE); OPIATE SCREEN,URINE NEGATIVE (NEGATIVE); PHENCYCLIDINE SCREEN,URINE NEGATIVE (NEGATIVE)
[2023-12-04 04:22] VITALS: BP 118/51; PULSE 57; RESP 17
== END 2023-12-04 04:25 | disposition home or self-care (01) ==
LOC: EMS 23:33
DX: F25.0 Schizoaffective disorder, bipolar type (principal); Z98.890 Other specified postprocedural states
CPT/HCPCS: 99284; 80053; 85025; 36415; 80307; G0480

== ENCOUNTER 2023-12-19 16:01 | Emergency (ER) | payer MEDICARE, OTHER | END 2023-12-19 18:01 | disposition left against medical advice (07) | LOC: EMS 16:01 | DX: R53.1 Weakness (principal); Z53.21 Procedure and treatment not carried out due to patient leaving prior to being seen by health care provider | CPT/HCPCS: 99281; Z7502 ==

== ENCOUNTER 2024-04-25 22:47 | Emergency (ER) | payer MEDICARE, OTHER ==
[~2024-04-25] VITALS: Ht 154.9 cm; Wt 108.2 kg
[2024-04-25 23:16] VITALS: BP 142/103; PULSE 89; RESP 20; TEMP 98.2
[2024-04-26 00:28] LABS: ALCOHOL, URINE DRUG SCREEN NEGATIVE (NEGATIVE); AMPHET/METH SCREEN,URINE NEGATIVE (NEGATIVE); BARBITURATE SCREEN, URINE NEGATIVE (NEGATIVE); BENZODIAZEPINES SCREEN,URINE NEGATIVE (NEGATIVE); CANNABINOID SCREEN,URINE NEGATIVE (NEGATIVE); COCAINE SCREEN,URINE NEGATIVE (NEGATIVE); METHADONE SCREEN, URINE NEGATIVE (NEGATIVE); OPIATE SCREEN,URINE NEGATIVE (NEGATIVE); PHENCYCLIDINE SCREEN,URINE NEGATIVE (NEGATIVE)
[2024-04-26 00:33] LABS: APPEARANCE,URINE CLEAR (CLEAR); BILIRUBIN,URINE NEGATIVE (NEGATIVE); COLOR,URINE COLORLESS (YELLOW); GLUCOSE, URINE (UA) NEGATIVE (NEGATIVE); KETONES,URINE NEGATIVE (NEGATIVE); LEUKOCYTE ESTERASE ,URINE NEGATIVE (NEGATIVE); NITRATE,URINE NEGATIVE (NEGATIVE); OCCULT BLOOD,URINE NEGATIVE (NEGATIVE); PH,URINE 6.5 (5.0-8.0); PH,URINE DRUG SCREEN 6.5 (5.0-8.0); PROTEIN,URINE NEGATIVE (NEGATIVE); SPECIFIC GRAVITIY, URINE 1.007 (1.003-1.030); UROBILINOGEN,URINE <=1.0 mg/dL (<=1.0)
[2024-04-26 01:28] LABS: BASOPHILS % (AUTO) 0.8 % (0.0-2.0); EOSINOPHILS % (AUTO) 2.5 % (1.0-6.0); HEMATOCRIT 40.7 % (36-46); HEMOGLOBIN 13.5 g/dL (12.0-16.0); LYMPHOCYTES # (AUTO) 3.6 K/uL (1.0-4.8); LYMPHOCYTES % (AUTO) 25.8 % (22.0-44.0); MEAN CORPUSCULAR HEMOGLOBIN 29.8 pg (26.0-34.0); MEAN CORPUSCULAR HGB CONC 33.2 G/dL (31.0-37.0); MEAN CORPUSCULAR VOLUME 90 fL (80-100); MONOCYTES # (AUTO) 1.1 K/uL (0.1-1.0); MONOCYTES % (AUTO) 7.5 % (2.0-9.0); NEUTROPHILS # (AUTO) 8.9 K/uL (1.8-7.7); NEUTROPHILS % (AUTO) 63.4 % (40.0-70.0); PLATELET COUNT (AUTO) 239 K/uL (150-450); RED BLOOD CELL COUNT(AUTO) 4.52 MIL/uL (4.00-5.20); RED CELL DISTRIBUTION WIDTH 13.5 % (11.5-14.5); WHITE BLOOD COUNT (AUTO) 14.1 K/uL (4.5-11.0)
[2024-04-26 01:40] LABS: COVID AG,FIA SOURCE NASAL SWAB
[2024-04-26 01:40] LABS: ANION GAP 5 mmol/L (8-16); CALCIUM, TOTAL 8.5 mg/dL (8.8-10.5); CARBON DIOXIDE 29 mmol/L (22-29); CHLORIDE 101 mmol/L (98-107); CREATININE 0.72 mg/dL (0.60-1.30); GLOMERULAR FILTR. RATE CALC > 60 mL/min (>60); GLUCOSE,RANDOM 106 mg/dL (70-110); POTASSIUM 3.3 mmol/L (3.5-5.1); SODIUM SERUM 135 mmol/L (136-145); UREA NITROGEN, BLOOD 11 mg/dL (7-18)
[2024-04-26 01:49] LABS: SARS-COV2 (COVID) ANTIGEN,FIA Negative (Negative)
[2024-04-26 01:53] LABS: ALCOHOL, BLOOD (SERUM) < 3 mg/dL (0-10)
== END 2024-04-26 03:40 | disposition home or self-care (01) ==
LOC: EMS 22:47
DX: F20.9 Schizophrenia, unspecified (principal); R51.9 Headache, unspecified; Z20.822 Contact with and (suspected) exposure to COVID-19
CPT/HCPCS: 99283; 87426; 80048; 84703; 85025; 36415; 80307; 81003; G0480

== ENCOUNTER 2024-10-23 00:59 | Emergency (ER) | payer MEDICARE, OTHER ==
[~2024-10-23] VITALS: Ht 157.5 cm; Wt 104.5 kg
[2024-10-23 01:09] VITALS: BP 120/78; PULSE 73; RESP 16; TEMP 98.1; O2SAT 98
[2024-10-23] MEDS ORDERED: IBUP-1492 PO (01:28)
[2024-10-23] MEDS ORDERED: ACET-3385 PO (01:28)
[2024-10-23] MEDS: ACETAMINOPHEN 500 MG TABLET PO ONE (01:52)
== END 2024-10-23 03:07 | disposition home or self-care (01) ==
LOC: EMS 01:21
DX: J06.9 Acute upper respiratory infection, unspecified (principal); J02.9 Acute pharyngitis, unspecified; H92.02 Otalgia, left ear; F25.1 Schizoaffective disorder, depressive type; Z79.899 Other long term (current) drug therapy
CPT/HCPCS: 99283

== ENCOUNTER → 2024-11-27 | Emergency (ER) | payer MEDICARE, OTHER | END | disposition left against medical advice (07) | LOC: EMS 01:20 | DX: Z53.21 Procedure and treatment not carried out due to patient leaving prior to being seen by health care provider (principal) ==

== ENCOUNTER 2025-04-28 00:02 | Emergency (ER) | payer MEDICARE, OTHER ==
[~2025-04-28] VITALS: Ht 157.5 cm; Wt 90.9 kg
[2025-04-28 00:06] VITALS: BP 110/82; PULSE 80; RESP 20; O2SAT 97
[2025-04-28] MEDS ORDERED: AMOX500C2 PO (00:50)
[2025-04-28] MEDS ORDERED: IBUP-1493 PO (00:50)
[2025-04-28] MEDS: AMOXICILLIN TRIHYDRATE 250 MG CAPSULE PO ONE (01:20)
[2025-04-28] MEDS: KETOROLAC TROMETHAMINE 60 MG/2 ML VIAL IM ONE (01:20)
== END 2025-04-28 01:38 | disposition home or self-care (01) ==
LOC: EMS 01:38
DX: K02.9 Dental caries, unspecified (principal); K08.89 Other specified disorders of teeth and supporting structures; F20.9 Schizophrenia, unspecified; Z79.899 Other long term (current) drug therapy
CPT/HCPCS: 99283; 96372; J1885

== ENCOUNTER → 2025-05-22 | Emergency (ER) | payer MEDICARE, OTHER ==
[~2025-05-22] VITALS: Ht 157.5 cm; Wt 109.1 kg
[~2025-05-22] MED LIST changes: +AMOX500C2 PO; +IBUP-1493 PO
[2025-05-22 03:41] VITALS: TEMP 98.4
[2025-05-22 04:18] LABS: PLATELET COUNT (AUTO) 222 K/uL (150-450); RED BLOOD CELL COUNT(AUTO) 4.43 MIL/uL (4.00-5.20); RED CELL DISTRIBUTION WIDTH 14.1 % (11.5-14.5); WHITE BLOOD COUNT (AUTO) 12.7 K/uL (4.5-11.0)
[2025-05-22 04:28] LABS: CALCIUM, TOTAL 8.3 mg/dL (8.8-10.5); CREATININE 0.62 mg/dL (0.60-1.30); GLOMERULAR FILTR. RATE CALC > 60 mL/min (>60); GLUCOSE,RANDOM 93 mg/dL (70-110); SODIUM SERUM 139 mmol/L (136-145); UREA NITROGEN, BLOOD 16 mg/dL (7-18)
[2025-05-22 04:39] LABS: ASPARTATE AMINOTRANSFERASE 21 U/L (15-37); HCG,QUANTITATIVE < 1 mIU/mL (0-6); TOTAL PROTEIN, SERUM 6.6 g/dL (6.4-8.2)
[2025-05-22 04:42] LABS: APPEARANCE,URINE CLEAR (CLEAR); GLUCOSE, URINE (UA) NEGATIVE (NEGATIVE); LEUKOCYTE ESTERASE ,URINE NEGATIVE (NEGATIVE); NITRATE,URINE NEGATIVE (NEGATIVE); OCCULT BLOOD,URINE NEGATIVE (NEGATIVE); SPECIFIC GRAVITIY, URINE 1.007 (1.003-1.030)
[2025-05-22 05:00] VITALS: BP 112/77; PULSE 67; RESP 15; O2SAT 98
== END | disposition still patient (30) ==
LOC: EMS 05:44
DX: R19.7 Diarrhea, unspecified (principal); R10.84 Generalized abdominal pain; F20.9 Schizophrenia, unspecified; Z79.899 Other long term (current) drug therapy
CPT/HCPCS: 80048; 80076; 81003; 83690; 84702; 85025; 99283

== ENCOUNTER 2025-06-17 16:25 | Emergency (ER) | payer MEDICARE, OTHER ==
[~2025-06-17] VITALS: Ht 157.5 cm; Wt 109.1 kg
[2025-06-17 16:33] VITALS: BP 129/93; PULSE 102; RESP 20; TEMP 98.4; O2SAT 100
[2025-06-17] MEDS ORDERED: TRIH5TAB3 PO (16:37)
[2025-06-17] MEDS ORDERED: FLUP5TAB8 PO (16:37)
[2025-06-17] MEDS ORDERED: CHLO50TA53 PO (16:37)
[2025-06-17] MEDS ORDERED: PALI6TAB15 PO (17:31)
[2025-06-17] MEDS ORDERED: LORA10TA7 PO (17:31)
[2025-06-17] MEDS ORDERED: HYDR-5256 PO (17:31)
[2025-06-17] MEDS ORDERED: CARI1.5C PO (17:31)
[2025-06-17] MEDS: MAALOX/LIDOCAINE/NYSTATIN SUSP 5 ML ORAL.SYG PO ONE (18:20)
[2025-06-17] MEDS ORDERED: PERID15L MM (20:43)
== END 2025-06-17 18:24 | disposition home or self-care (01) ==
LOC: EMS 16:25
DX: K12.0 Recurrent oral aphthae (principal); E28.2 Polycystic ovarian syndrome; F20.9 Schizophrenia, unspecified
CPT/HCPCS: 99283

== ENCOUNTER 2025-07-04 04:14 | Emergency (ER) | payer MEDICARE, OTHER ==
[~2025-07-04 04:14] MED LIST changes: -ACET-3385 PO; -AMOX500C2 PO; -ATOR20TA65 PO; +CARI1.5C PO; +CHLO50TA53 PO; +FLUP5TAB8 PO; +HYDR-5256 PO; -IBUP-1492 PO; -IBUP-1493 PO; +LORA10TA7 PO; -ONDA-104 PO; -PALI234D IM; +PALI6TAB15 PO; +PERID15L MM; -POLY119P3 PO; +TRIH5TAB3 PO; -[UNRECOGNIZED DRUG - CODE] PO
== END 2025-07-04 06:00 | disposition home or self-care (01) ==
LOC: EMS 05:52
DX: F41.9 Anxiety disorder, unspecified (principal); F20.9 Schizophrenia, unspecified; Z79.899 Other long term (current) drug therapy
CPT/HCPCS: 99283; Z7502

== ENCOUNTER 2025-07-06 23:13 | Emergency (ER) | payer MEDICARE, OTHER ==
[~2025-07-06] VITALS: Ht 154.9 cm; Wt 109.1 kg
[2025-07-06 23:15] VITALS: BP 126/82; PULSE 80; RESP 18; TEMP 97.5; O2SAT 98
== END 2025-07-07 03:00 | disposition home or self-care (01) ==
LOC: EMS 23:29
DX: R25.2 Cramp and spasm (principal); M79.604 Pain in right leg; M79.605 Pain in left leg; F20.9 Schizophrenia, unspecified; Z79.899 Other long term (current) drug therapy
CPT/HCPCS: 99283; Z7502

== ENCOUNTER 2025-07-16 13:08 | Emergency (ER) | payer MEDICARE, OTHER ==
[~2025-07-16] VITALS: Ht 165.1 cm; Wt 98.0 kg
[2025-07-16 13:26] VITALS: TEMP 98.3
[2025-07-16 14:30] VITALS: BP 124/75; PULSE 79; RESP 17; O2SAT 99
[2025-07-16 14:51] LABS: PLATELET COUNT (AUTO) 252 K/uL (150-450); RED BLOOD CELL COUNT(AUTO) 4.59 MIL/uL (4.00-5.20); RED CELL DISTRIBUTION WIDTH 14.4 % (11.5-14.5); WHITE BLOOD COUNT (AUTO) 16.4 K/uL (4.5-11.0)
[2025-07-16 15:04] LABS: ASPARTATE AMINOTRANSFERASE 14.0 U/L (15-37); TOTAL PROTEIN, SERUM 7.0 g/dL (6.4-8.2)
[2025-07-16 15:15] LABS: SODIUM SERUM 140 mmol/L (136-145)
[2025-07-16 15:16] LABS: CREATININE 0.51 mg/dL (0.60-1.30); GLUCOSE,RANDOM 87 mg/dL (70-110); UREA NITROGEN, BLOOD 17 mg/dL (7-18)
[2025-07-16 15:17] LABS: CALCIUM, TOTAL 8.3 mg/dL (8.8-10.5); GLOMERULAR FILTR. RATE CALC > 60 mL/min (>60)
[2025-07-16] MEDS: ONDANSETRON 4 MG TABLET PO ONE (15:33)
[2025-07-16] MEDS: ACETAMINOPHEN 500 MG TABLET PO ONE (15:34)
[2025-07-16 15:54] LABS: APPEARANCE,URINE CLEAR (CLEAR); GLUCOSE, URINE (UA) NEGATIVE (NEGATIVE); LEUKOCYTE ESTERASE ,URINE NEGATIVE (NEGATIVE); NITRATE,URINE NEGATIVE (NEGATIVE); OCCULT BLOOD,URINE NEGATIVE (NEGATIVE); SPECIFIC GRAVITIY, URINE 1.012 (1.003-1.030)
== END 2025-07-16 19:22 | disposition home or self-care (01) ==
LOC: EMS 13:15
DX: R10.24 Suprapubic pain (principal); F20.9 Schizophrenia, unspecified; Z79.899 Other long term (current) drug therapy
CPT/HCPCS: 99284; 76856; 80048; 80076; 81003; 83690; 84703; 85025; 36415; Q0162

== ENCOUNTER 2025-08-22 07:57 | Inpatient (IN) | payer MEDICARE, MEDICAID ==
[~2025-08-22] VITALS: Ht 157.5 cm; Wt 113.1 kg
[2025-08-22 08:30] VITALS: BP 120/90; PULSE 85; RESP 18; TEMP 98.4; O2SAT 96
[2025-08-22 10:45] VITALS: BP 117/66; PULSE 72; RESP 17; TEMP 98.6; O2SAT 98
[2025-08-22] MEDS ORDERED: ONDANSETRON 4 MG TABLET PO PRN (12:45)
[2025-08-22] MEDS ORDERED: IBUPROFEN 400 MG TABLET PO PRN (12:45)
[2025-08-22] MEDS ORDERED: NICOTINE 14 MG/24 HOUR PATCH TD PRN (12:45)
[2025-08-22] MEDS ORDERED: ALBUTEROL SULFATE HFA 90 MCG/PUFF 8 GM INHALER IH PRN (12:45)
[2025-08-22] MEDS ORDERED: DOCUSATE SODIUM 100 MG CAPSULE PO PRN (12:45)
[2025-08-22] MEDS ORDERED: LOPERAMIDE HCL 2 MG CAPSULE PO PRN (12:45)
[2025-08-22] MEDS: MAG HYDROX/ALUMINUM HYD/SIMETH ES 30 ML SUSPENSION UDCUP PO PRN (13:24)
[2025-08-22] MEDS ORDERED: INFLUENZA VIRUS VACCINE TVS (6MO+) 2025-26/PF 45 MCG/0.5 ML SYRINGE IM. ONE (13:45)
[2025-08-22 16:41] LABS: GLUCOMETER DEV NAME(LOC) POC.BV; POC SARS-COV2 AG, FIA NEGATIVE (NEGATIVE)
[2025-08-22 20:25] VITALS: BP 132/84; PULSE 74; RESP 17; TEMP 97.3; O2SAT 98
[2025-08-23 08:22] VITALS: BP 143/92; PULSE 77; RESP 17; TEMP 97.7; O2SAT 96
[2025-08-23 08:41] LABS: PLATELET COUNT (AUTO) 210 K/uL (150-450); RED BLOOD CELL COUNT(AUTO) 4.52 MIL/uL (4.00-5.20); RED CELL DISTRIBUTION WIDTH 14.0 % (11.5-14.5); WHITE BLOOD COUNT (AUTO) 10.3 K/uL (4.5-11.0)
[2025-08-23] MEDS: LORATADINE 10 MG TABLET PO SCH (09:06)
[2025-08-23 09:22] LABS: ASPARTATE AMINOTRANSFERASE 18 U/L (15-37); CALCIUM, TOTAL 8.3 mg/dL (8.8-10.5); CHOL/HDL RATIO 4.1 (3.9-5.7); CREATININE 0.46 mg/dL (0.60-1.30); GLOMERULAR FILTR. RATE CALC > 60 mL/min (>60); GLUCOSE,RANDOM 86 mg/dL (70-110); HCG,QUANTITATIVE < 1 mIU/mL (0-6); SODIUM SERUM 139 mmol/L (136-145); TOTAL PROTEIN, SERUM 6.9 g/dL (6.4-8.2); UREA NITROGEN, BLOOD 9 mg/dL (7-18)
[2025-08-23 09:36] LABS: LDL CHOL (CALC.) 161 mg/dL (0-130)
[2025-08-23] MEDS: TRIHEXYPHENIDYL HCL 5 MG TABLET PO SCH (11:47)
[2025-08-23] MEDS: PALIPERIDONE 6 MG ER TABLET PO SCH (11:47)
[2025-08-23 20:45] VITALS: BP 123/79; PULSE 80; RESP 18; TEMP 97.3; O2SAT 97
[2025-08-24 08:25] VITALS: BP 133/77; PULSE 88; RESP 17; TEMP 99; O2SAT 99
[2025-08-24 08:46] LABS: APPEARANCE,URINE CLEAR (CLEAR); GLUCOSE, URINE (UA) NEGATIVE (NEGATIVE); LEUKOCYTE ESTERASE ,URINE NEGATIVE (NEGATIVE); NITRATE,URINE NEGATIVE (NEGATIVE); OCCULT BLOOD,URINE NEGATIVE (NEGATIVE); PH,URINE DRUG SCREEN 5.5 (5.0-8.0); SPECIFIC GRAVITIY, URINE 1.015 (1.003-1.030)
[2025-08-24 08:56] LABS: AMPHET/METH SCREEN,URINE NEGATIVE (NEGATIVE); BARBITURATE SCREEN, URINE NEGATIVE (NEGATIVE); CANNABINOID SCREEN,URINE NEGATIVE (NEGATIVE); COCAINE SCREEN,URINE NEGATIVE (NEGATIVE); METHADONE SCREEN, URINE NEGATIVE (NEGATIVE)
[2025-08-24 09:19] LABS: ALCOHOL, URINE DRUG SCREEN NEGATIVE (NEGATIVE)
[2025-08-24 20:17] VITALS: BP 141/90; PULSE 74; RESP 17; TEMP 98.1; O2SAT 99
[2025-08-25 08:37] VITALS: BP 125/75; PULSE 79; RESP 18; TEMP 98.1; O2SAT 100
[2025-08-25 20:15] VITALS: BP 105/89; PULSE 71; RESP 18; TEMP 98.1; O2SAT 99
[2025-08-25] MEDS: PEG 400/HYPROMELLOSE/GLYCERIN 15 ML OPHTHALMIC SOLUTION OU PRN (21:03)
[2025-08-25] MEDS: DOCOSANOL 10% 2 GM CREAM TP PRN (22:13)
[2025-08-26 08:24] VITALS: BP 142/88; PULSE 95; RESP 17; TEMP 98.4; O2SAT 99
[2025-08-26 16:16] LABS: GLUCOMETER DEV NAME(LOC) POC.BV; POC SARS-COV2 AG, FIA NEGATIVE (NEGATIVE)
[2025-08-26] MEDS: PALIPERIDONE 9 MG ER TABLET PO SCH (20:32)
[2025-08-26 20:41] VITALS: BP 128/82; PULSE 86; RESP 17; TEMP 98.1; O2SAT 98
[2025-08-27] MEDS: ZOLPIDEM TARTRATE 10 MG TABLET PO PRN (02:38)
[2025-08-27 08:42] VITALS: BP 127/90; PULSE 91; RESP 18; TEMP 97.5; O2SAT 98
[2025-08-27 10:23] LABS: APPEARANCE,URINE CLEAR (CLEAR); GLUCOSE, URINE (UA) NEGATIVE (NEGATIVE); LEUKOCYTE ESTERASE ,URINE NEGATIVE (NEGATIVE); NITRATE,URINE NEGATIVE (NEGATIVE); OCCULT BLOOD,URINE NEGATIVE (NEGATIVE); PH,URINE DRUG SCREEN 7.0 (5.0-8.0); SPECIFIC GRAVITIY, URINE 1.009 (1.003-1.030)
[2025-08-27 10:48] LABS: AMPHET/METH SCREEN,URINE NEGATIVE (NEGATIVE); BARBITURATE SCREEN, URINE NEGATIVE (NEGATIVE); CANNABINOID SCREEN,URINE NEGATIVE (NEGATIVE); COCAINE SCREEN,URINE NEGATIVE (NEGATIVE); METHADONE SCREEN, URINE NEGATIVE (NEGATIVE)
[2025-08-27 10:49] LABS: ALCOHOL, URINE DRUG SCREEN NEGATIVE (NEGATIVE)
[2025-08-27] MEDS: HYDROCORTISONE 1% 30 GM CREAM TP PRN (17:57)
[2025-08-27] MEDS: ACETAMINOPHEN 325 MG TABLET PO PRN (18:55)
[2025-08-27 20:33] VITALS: BP 108/72; PULSE 97; RESP 17; TEMP 97.3; O2SAT 98
[2025-08-28 08:20] VITALS: BP 123/83; PULSE 99; RESP 18; TEMP 97; O2SAT 99
[2025-08-28 21:32] VITALS: BP 124/72; PULSE 84; RESP 18; TEMP 96.8; O2SAT 96
[2025-08-28] MEDS: FLUTICASONE PROPIONATE 50 MCG/SPRAY 16 GM NASAL SPRAY NASAL SCH (22:45)
[2025-08-29 08:21] VITALS: BP 117/76; PULSE 81; RESP 18; TEMP 98.6
[2025-08-29 20:41] VITALS: BP 132/80; PULSE 84; RESP 18; TEMP 97.8; O2SAT 99
[2025-08-30 08:45] VITALS: BP 116/74; PULSE 86; RESP 16; TEMP 98.1; O2SAT 97
[2025-08-30 14:15] VITALS: BP 91/80; PULSE 70; RESP 16; TEMP 97.8; O2SAT 96
[2025-08-30] MEDS: GuaiFENesin/D-METHORPHAN [SUGAR-FREE] 200-20MG/10 ML SYRUP UDCUP PO PRN (16:39)
[2025-08-30 20:22] VITALS: BP 121/85; PULSE 86; RESP 16; TEMP 97.8; O2SAT 97
[2025-08-31] MEDS: PETROLATUM,WHITE 28 GM JELLY TP PRN (07:03)
[2025-08-31 09:03] VITALS: BP 120/66; PULSE 92; RESP 17; TEMP 98.4; O2SAT 99
[2025-08-31] MEDS: BENZOCAINE/MENTHOL [CEPACOL] LOZENGE PO PRN (10:14)
[2025-08-31 20:00] VITALS: RESP 16
[2025-09-01 09:44] VITALS: BP 115/68; PULSE 69; RESP 17; TEMP 97.5; O2SAT 96
[2025-09-01] MEDS: MAGNESIUM HYDROXIDE SUSPENSION 30 ML UDCUP PO PRN (14:00)
[2025-09-01 20:16] VITALS: BP 130/58; PULSE 85; RESP 18; TEMP 97.9; O2SAT 98
[2025-09-02 08:48] VITALS: BP 113/58; PULSE 88; RESP 17; TEMP 98.3; O2SAT 98
[2025-09-02] MEDS ORDERED: PALI9TAB15 PO (10:14)
[2025-09-02] MEDS ORDERED: CHLO50TA71 PO (10:15)
[2025-09-02] MEDS ORDERED: FLUT16SP NASAL (10:17)
== END 2025-09-02 18:00 | disposition home or self-care (01) | DRG 885 ==
LOC: B2S 10:04 → B2X 08-27 21:57
PROVIDERS: ADMIT Psychiatry & Neurology Child & Adolescent Psychiatry; ATTEND Psychiatry & Neurology Child & Adolescent Psychiatry
PROC: GZHZZZZ Group Psychotherapy (ICD-10-PCS; principal; 2025-08-22)
PROC: GZ58ZZZ Individual Psychotherapy, Cognitive-Behavioral (ICD-10-PCS; 2025-08-22)
PROC: GZ56ZZZ Individual Psychotherapy, Supportive (ICD-10-PCS; 2025-08-22)
DX: F25.1 Schizoaffective disorder, depressive type (principal); R45.851 Suicidal ideations; F10.10 Alcohol abuse, uncomplicated; F19.10 Other psychoactive substance abuse, uncomplicated; E78.5 Hyperlipidemia, unspecified; J30.9 Allergic rhinitis, unspecified; K21.9 Gastro-esophageal reflux disease without esophagitis; G47.00 Insomnia, unspecified; Z20.822 Contact with and (suspected) exposure to COVID-19; Y90.9 Presence of alcohol in blood, level not specified; Z91.148 Patient's other noncompliance with medication regimen for other reason
CPT/HCPCS: 71045; 80053; 80061; 80307; 81003; 83036; 84439; 84443; 84702; 85025; 36415-L1; 36415-TC

== ENCOUNTER 2025-09-04 00:45 | Emergency (ER) | payer MEDICARE, OTHER ==
[~2025-09-04] VITALS: Ht 157.5 cm; Wt 113.6 kg
[~2025-09-04 00:45] MED LIST changes: -CARI1.5C PO; -CHLO50TA53 PO; +CHLO50TA71 PO; -FLUP5TAB8 PO; +FLUT16SP NASAL; -HYDR-5256 PO; -PALI6TAB15 PO; +PALI9TAB15 PO; -PERID15L MM; -TRAZ-252 PO
[2025-09-04] MEDS: OXYMETAZOLINE HCL 0.05% 15 ML NASAL SPRAY NASAL ONE (02:10)
[2025-09-04] MEDS: BACITRACIN 0.9 GM PACKET OINTMENT TP ONE (02:35)
[2025-09-04 02:54] VITALS: BP 99/82; PULSE 83; RESP 18; TEMP 98.1; O2SAT 98
== END 2025-09-04 03:03 | disposition home or self-care (01) ==
LOC: EMS 00:47
DX: R04.0 Epistaxis (principal); F41.9 Anxiety disorder, unspecified; F25.9 Schizoaffective disorder, unspecified; K76.0 Fatty (change of) liver, not elsewhere classified; Z79.899 Other long term (current) drug therapy
CPT/HCPCS: 93005; 99283

== ENCOUNTER 2025-09-10 16:25 | Emergency (ER) | payer MEDICARE, OTHER ==
[~2025-09-10] VITALS: Ht 157.5 cm; Wt 112.3 kg
[2025-09-10 17:35] LABS: APPEARANCE,URINE CLEAR (CLEAR); GLUCOSE, URINE (UA) NEGATIVE (NEGATIVE); LEUKOCYTE ESTERASE ,URINE NEGATIVE (NEGATIVE); NITRATE,URINE NEGATIVE (NEGATIVE); OCCULT BLOOD,URINE NEGATIVE (NEGATIVE); SPECIFIC GRAVITIY, URINE 1.023 (1.003-1.030)
[2025-09-10 17:38] LABS: HCG,QUAL URINE NEGATIVE (NEGATIVE)
[2025-09-10] MEDS: FLUCONAZOLE 150 MG TABLET PO ONE (17:59)
[2025-09-10 18:18] VITALS: BP 117/93; PULSE 90; RESP 17; O2SAT 99
== END 2025-09-10 18:21 | disposition home or self-care (01) ==
LOC: EMS 16:25
DX: B37.31 Acute candidiasis of vulva and vagina (principal); F20.9 Schizophrenia, unspecified; Z79.899 Other long term (current) drug therapy
CPT/HCPCS: 81003; 84703; 99283

== ENCOUNTER 2025-09-16 10:35 | Emergency (ER) | payer MEDICARE, OTHER ==
[~2025-09-16] VITALS: Ht 157.5 cm; Wt 109.1 kg
[2025-09-16 10:46] VITALS: BP 122/63; PULSE 79; RESP 16; TEMP 98.2; O2SAT 100
[2025-09-16] MEDS: ACETAMINOPHEN 500 MG TABLET PO ONE (11:46)
[2025-09-16] MEDS: OMEPRAZOLE 20 MG CAPSULE PO ONE (11:46)
[2025-09-16] MEDS: MAG HYDROX/ALUMINUM HYD/SIMETH ES 30 ML SUSPENSION UDCUP PO ONE (11:46)
[2025-09-16 11:54] LABS: PLATELET COUNT (AUTO) 217 K/uL (150-450); RED BLOOD CELL COUNT(AUTO) 4.44 MIL/uL (4.00-5.20); RED CELL DISTRIBUTION WIDTH 14.3 % (11.5-14.5); WHITE BLOOD COUNT (AUTO) 12.0 K/uL (4.5-11.0)
[2025-09-16 12:05] LABS: CALCIUM, TOTAL 8.5 mg/dL (8.8-10.5); CREATININE 0.56 mg/dL (0.60-1.30); GLOMERULAR FILTR. RATE CALC > 60 mL/min (>60); GLUCOSE,RANDOM 97 mg/dL (70-110); SODIUM SERUM 137 mmol/L (136-145); UREA NITROGEN, BLOOD 13 mg/dL (7-18)
[2025-09-16] MEDS ORDERED: MAG30ORA11 PO (12:39)
[2025-09-16] MEDS ORDERED: OMEP-148 PO (12:39)
== END 2025-09-16 13:01 | disposition home or self-care (01) ==
LOC: EMS 10:35
DX: R07.89 Other chest pain (principal); K29.70 Gastritis, unspecified, without bleeding; F25.9 Schizoaffective disorder, unspecified; D22.5 Melanocytic nevi of trunk; Z79.899 Other long term (current) drug therapy
CPT/HCPCS: 80048; 83690; 84703; 85025; 93005; 99284